=== PATIENT | female | born 1935 | race Caucasian/White ===

== ENCOUNTER → 2016-11-30 | Outpatient (CLI) | payer OTHER ==
[~2016-11-30] MED LIST: ALLO100T PO; ATOR-22 PO; DIGO30TA PO; LISI-786 PO; LORA-741 PO; METO25TA56 PO; OMEP40CA41 PO; ONDA4TAB46 PO; SLWMEC PO; WARF5TAB90 PO; ZNTT/150 PO
[2016-11-30 17:41] LABS: HEMATOCRIT 38.9 % (37-47); MEAN CELL VOLUME 92.4 fL (80-100); MEAN CORPUSCULAR HEMOGLOBIN 31.8 pg (25-34); MEAN CORPUSCULAR HGB CONC 34.4 g/dl (32-36); MEAN PLATELET VOLUME 9.4 fL (7.4-10.4); PLATELET COUNT 237 K/uL (130-400); RED BLOOD COUNT 4.21 M/uL (4.2-5.4); WHITE BLOOD COUNT 8.71 K/uL (4.8-10.8)
[2016-11-30 17:57] LABS: ALT/SGPT 22 U/L (12-78); AST/SGOT 19 U/L (15-37); BLOOD UREA NITROGEN 23 mg/dl (7-18); BUN/CREATININE RATIO 24.9 (10-20); CARBON DIOXIDE 28 mmol/L (21-32); CHLORIDE 103 mmol/L (98-107); CREATININE 0.91 mg/dl (0.60-1.20); GLUCOSE 115 mg/dl (70-99); POTASSIUM 4.4 mmol/L (3.5-5.1); SODIUM 139 mmol/L (136-145); URIC ACID 6.2 mg/dl (2.6-7.2)
[2016-11-30 18:05] LABS: ALKALINE PHOSPHATASE 70 U/L (45-117); CHOLESTEROL 146 mg/dl (0-200); CHOLESTEROL/HDL RATIO 3.2; HDL CHOLESTEROL 46 mg/dl; LDL CHOLESTEROL CALCULATED 38 mg/dl; TRIGLYCERIDES 310 mg/dl (0-150); VERY LOW DENSITY LIPOPROT CALC 62 mg/dl
== END | disposition home or self-care (01) ==
LOC: C.LABBFT 12:10
PROVIDERS: ATTEND Internal Medicine
DX: I10 Essential (primary) hypertension (principal); E78.5 Hyperlipidemia, unspecified; I48.91 Unspecified atrial fibrillation; M10.9 Gout, unspecified

== ENCOUNTER → 2017-06-05 | Outpatient (CLI) | payer OTHER | END | disposition home or self-care (01) | LOC: C.LABBFT 11:52 | PROVIDERS: ATTEND Internal Medicine | DX: R19.7 Diarrhea, unspecified (principal) ==

== ENCOUNTER → 2017-06-07 | Outpatient (CLI) | payer OTHER ==
[2017-06-07 12:25] LABS: BASO % 0.3 %; BASO ABS # 0.02 K/uL (0-0.2); COMPLETE YES; HEMATOCRIT 39.7 % (37-47); IG% 0.4 %; LYMPH % 32.6 %; LYMPH ABS # 2.19 K/uL (1.2-3.4); MEAN CELL VOLUME 91.5 fL (80-100); MEAN CORPUSCULAR HGB CONC 32.7 g/dl (32-36); MEAN PLATELET VOLUME 9.1 fL (7.4-10.4); MONO % 8.5 %; NEUT % 57.2 %; PLATELET COUNT 229 K/uL (130-400); RED BLOOD COUNT 4.34 M/uL (4.2-5.4); WHITE BLOOD COUNT 6.71 K/uL (4.8-10.8)
[2017-06-07 12:36] LABS: ALT/SGPT 22 U/L (12-78); AST/SGOT 18 U/L (15-37); BLOOD UREA NITROGEN 19 mg/dl (7-18); BUN/CREATININE RATIO 22.8 (10-20); CALCIUM 8.8 mg/dl (8.5-10.1); CARBON DIOXIDE 27 mmol/L (21-32); CHLORIDE 108 mmol/L (98-107); CREATININE 0.82 mg/dl (0.60-1.20); GLUCOSE 151 mg/dl (70-99); POTASSIUM 4.1 mmol/L (3.5-5.1); SODIUM 141 mmol/L (136-145); URIC ACID 6.2 mg/dl (2.6-7.2)
[2017-06-07 12:37] LABS: URINE APPEARANCE CLOUDY (CLEAR); URINE BILIRUBIN NEG (NEG); URINE COLOR YELLOW; URINE EPITHELIAL CELL AUTO >30 /lpf (0-5); URINE NITRITE NEG (NEG); URINE SPECIFIC GRAVITY 1.019 (1.000-1.030); UROBILINOGEN NEG (NEG); ZZUR CULT IF INDIC CLEAN CATCH YES
[2017-06-07 12:38] LABS: ESTIMATED AVERAGE GLUCOSE 134 mg/dl; HA1C FLAG Normal (Normal)
[2017-06-07 12:39] LABS: ALKALINE PHOSPHATASE 84 U/L (45-117); CHOLESTEROL 133 mg/dl (0-200); CHOLESTEROL/HDL RATIO 3.1; HDL CHOLESTEROL 43 mg/dl; LDL CHOLESTEROL CALCULATED 36 mg/dl; TRIGLYCERIDES 271 mg/dl (0-150); VERY LOW DENSITY LIPOPROT CALC 54 mg/dl
[2017-06-07 12:51] LABS: MANUAL MICROSCOPIC REQUIRED? NO; REVIEW REQ? NO
== END | disposition home or self-care (01) ==
LOC: C.LABBFT 07:51
PROVIDERS: ATTEND Internal Medicine
DX: I10 Essential (primary) hypertension (principal); M10.9 Gout, unspecified; E78.5 Hyperlipidemia, unspecified; I48.91 Unspecified atrial fibrillation; R73.09 Other abnormal glucose

== ENCOUNTER → 2017-07-19 | Day surgery (SDC) | payer OTHER ==
[2017-07-17 08:13] VITALS: Ht 152.4 cm; Wt 76.4 kg
[~2017-07-19] VITALS: Ht 152.4 cm; Wt 76.4 kg
[~2017-07-19] MED LIST changes: +ATROPINE SULFATE 0.1 MG/ML 5ML SYR IV PRN; +EpHEDrine SULFATE INJ 50 MG/ML AMP IV PRN; +LIDOCAINE HCL 2% 2 ML VIAL (20MG/ML) ONE; +PROPOFOL IV EMULSION 10 MG/ML 20 ML VIAL IV ONE; +SODIUM CHLORIDE 0.9% 500ML 500 ML IV ONE
--- NOTE | 2017-07-19 13:59 | Endo History and Physical ---
History & Physical Date of Service: Jul 19, 2017. Chief Complaint: BRIGHT RED BLOOD PER RECTUM Referring Physician: DR. ENGLISH History of Present Illness 81 yo CF who presents for colonoscopy secondary to rectal bleeding. Past Surgical History Hx Cardiac Surgery: Yes (CARDIOVERSION) Hx Internal Defibrillator: No Hx Pacemaker: No Hx Abdominal Surgery: Yes (MARIA G, CERVICAL CONIZATION) Hx of Implantable Prosthesis: No Hx Post-Op Nausea and Vomiting: No Hx Cancer Surgery: No Hx Thoracic Surgery: No Hx Orthopedic: Yes (LT ANKLE SURGERY WITH HARDWARE --> HARDWARE REMOVAL, LT TKA ) Hx Urinary Tract Surgery: No Family History None Social History Smoking Status: Never Smoker Hx Substance Use: No Hx Alcohol Use: No Allergies Coded Allergies: NO KNOWN DRUG ALLERGIES (Verified Allergy, Unknown, ., 07/19/17) Nickel (Verified Adverse Reaction, Unknown, PAIN WITH HARDWARE IN ANKLE -- > REMOVED, 07/19/17) Current Medications Reported Home Medications Medications Dose Route/Sig Max Daily Dose Days Date Category Dose Instructions Ativan (Lorazepam) 0.5 Mg Tab 0.5 Mg PO BID PRN 07/17/17 Reported Digitek (Digoxin) 0.125 Mg Tab 1 Tab PO QAM 07/17/17 Reported Zofran (Ondansetron HCl) 4 Mg Tab 4 Mg PO DAILY PRN 07/17/17 Reported Slow-Mag Tab (Magnesium Chloride) 64 Mg Tabcr 64 Mg PO TID 07/17/17 Reported Lopressor (Metoprolol Tartrate) 25 Mg Tab 25 Mg PO BID 07/17/17 Reported Zestoretic (Lisinopril & Hydrochlorothiazi) 1 Tab Tab 1 Tab PO QAM 07/17/17 Reported 10MG/12.5MG Coumadin (Warfarin Sodium) 5 Mg Tab 5 Mg PO QAM 07/17/17 Reported ON HOLD FOR PROCEDURE Lipitor (Atorvastatin Calcium) 20 Mg Tab 20 Mg PO QAM 07/17/17 Reported Zyloprim (Allopurinol) 100 Mg Tab 100 Mg PO QAM 07/17/17 Reported Zantac (Ranitidine HCl) 150 Mg Tab 150 Mg PO HS 07/17/17 Reported Prilosec (Omeprazole) 40 Mg Cap 40 Mg PO QAM 07/17/17 Reported Vital Signs Weight (Kilograms): 76.36 Height (Feet): 5 Height (Inches): 0 Date Time Temp Pulse Resp B/P (MAP) Pulse Ox O2 Delivery O2 Flow Rate FiO2 07/19/17 13:43 36.6 70 16 165/89 (114) 97 Room Air Physical Exam General Appearance: WD/WN, no apparent distress Respiratory/Chest: Auscultation: breath sounds normal Cardiovascular: Heart Auscultation: RRR Abdomen: Bowel Sounds: normal Inspection & Palpation: soft, non-distended, no tenderness, guarding & rebound Assessment and Plan Assessment: 81 yo CF who presents for colonoscopy secondary to rectal bleeding. Plan: Proceed with colonoscopy.
--- NOTE | 2017-07-19 14:47 | GI REPORT ---
Procedure Date: 07/19/2017 1:37 PM Procedure: Colonoscopy Indications: Rectal bleeding Medicines: Monitored Anesthesia Care Complications: No immediate complications. Estimated Blood Loss: Estimated blood loss: none. Procedure: Pre-Anesthesia Assessment: - Prior to the procedure, a History and Physical was performed, and patient medications and allergies were reviewed. The patient's tolerance of previous anesthesia was also reviewed. The risks and benefits of the procedure and the sedation options and risks were discussed with the patient. All questions were answered, and informed consent was obtained. Prior Anticoagulants: The patient has taken no previous anticoagulant or antiplatelet agents. ASA Grade Assessment: II - A patient with mild systemic disease. After reviewing the risks and benefits, the patient was deemed in satisfactory condition to undergo the procedure. After I obtained informed consent, the scope was passed under direct vision. Throughout the procedure, the patient's blood pressure, pulse, and oxygen saturations were monitored continuously. The scope was introduced through the anus and advanced to the terminal ileum. The colonoscopy was performed without difficulty. The patient tolerated the procedure well. The quality of the bowel preparation was good. The terminal ileum, ileocecal valve, appendiceal orifice, and rectum were photographed. Findings: Four sessile polyps were found in the rectum, in the ascending colon and in the cecum. The polyps were 3 to 6 mm in size. These polyps were removed with a hot snare. Resection and retrieval were complete. Non-bleeding internal hemorrhoids were found during retroflexion. The hemorrhoids were small. Impression: - Four 3 to 6 mm polyps in the rectum, in the ascending colon and in the cecum, removed with a hot snare. Resected and retrieved. - Non-bleeding internal hemorrhoids. Recommendation: - Resume previous diet. - Continue present medications. - Repeat colonoscopy for surveillance based on pathology results. - Return to primary care physician as previously scheduled. Fab Messina, 07/19/2017 2:46:42 PM This report has been signed electronically. Note Initiated On: 07/19/2017 1:37 PM I attest to the content of the Intraoperative Record and orders documented therein, exceptions below
--- NOTE | 2017-07-19 14:52 | Discharge Instructions ---
Endoscopy Patient Instructions Date / Procedure(s) Performed Jul 19, 2017. Colonoscopy Allergy Information Coded Allergies: NO KNOWN DRUG ALLERGIES (Verified Allergy, Unknown, ., 07/19/17) Nickel (Verified Adverse Reaction, Unknown, PAIN WITH HARDWARE IN ANKLE -- > REMOVED, 07/19/17) Discharge Date / Findings Jul 19, 2017. Colon polyps Rectal polyp Internal hemorrhoids Medication Instructions Stopped Medication(s): COUMADIN 5MG PO 07/15/17 OK to resume all medications today as prescribed Reported Home Medications Medications Dose Route/Sig Max Daily Dose Days Date Category Dose Instructions Ativan (Lorazepam) 0.5 Mg Tab 0.5 Mg PO BID PRN 07/17/17 Reported Digitek (Digoxin) 0.125 Mg Tab 1 Tab PO QAM 07/17/17 Reported Zofran (Ondansetron HCl) 4 Mg Tab 4 Mg PO DAILY PRN 07/17/17 Reported Slow-Mag Tab (Magnesium Chloride) 64 Mg Tabcr 64 Mg PO TID 07/17/17 Reported Lopressor (Metoprolol Tartrate) 25 Mg Tab 25 Mg PO BID 07/17/17 Reported Zestoretic (Lisinopril & Hydrochlorothiazi) 1 Tab Tab 1 Tab PO QAM 07/17/17 Reported 10MG/12.5MG Coumadin (Warfarin Sodium) 5 Mg Tab 5 Mg PO QAM 07/17/17 Reported ON HOLD FOR PROCEDURE Lipitor (Atorvastatin Calcium) 20 Mg Tab 20 Mg PO QAM 07/17/17 Reported Zyloprim (Allopurinol) 100 Mg Tab 100 Mg PO QAM 07/17/17 Reported Zantac (Ranitidine HCl) 150 Mg Tab 150 Mg PO HS 07/17/17 Reported Prilosec (Omeprazole) 40 Mg Cap 40 Mg PO QAM 07/17/17 Reported Provider Instructions Activity Restrictions - No exercising or heavy lifting for 24 hours. - Do not drink alcohol the day of the procedure. - Do not drive a car or operate machinery until the day after the procedure. - Do not make any important decisions or sign important papers in 24 hours after the procedure. Following Day: - Return to full activity which may include returning to work/school. Diet Start your diet with liquids and light foods (jello, soup, juice, toast). Then eat your usual diet if not nauseated. Treatment For Common After Affects For mild abdominal pain, bloating, or excessive gas: - Rest - Eat lightly - Lie on right side Follow-Up Information Follow-up with DR. ENGLISH as scheduled Anesthesia Information What You Should Know You have had a procedure that required some medicine to reduce anxiety and discomfort. This treatment is called moderate sedation. After receiving the treatment, you may be sleepy, but you will be able to breathe on your own. The effects of the treatment may last for several hours. Follow these instructions along with Activity/Diet recommendations noted above: * Do NOT do anything where dizziness or clumsiness would be dangerous. * Rest quietly at home today, then you can be up and about tomorrow. * Have a responsible person stay with you the rest of today. * You may have had an I.V. today. If so, you may take the dressing off later today. Recommendations Call your doctor if: * Trouble breathing * Continuous vomiting for more than 24 hours * Temperature above 101 degrees * Severe abdominal pain or bloating * Pain not relieved by pain medicine ordered * There is increased drainage or redness from any incision * A large amount of rectal bleeding greater than 2-3 tablespoons. (If you had a polyp/s removed or have hemorrhoids, a small amount of blood - from the rectum is to be expected.) * You have any unanswered questions or concerns. IN THE EVENT OF A SERIOUS EMERGENCY, GO TO THE NEAREST EMERGENCY ROOM Your discharge instructions were prepared by provider Fab Messina. Patient Instructions Signature Page Jessie Rothman Patient (or Guardian) Signature/Date: I have read and understand the instructions given to me by my caregivers. Caregiver/RN/Doctor Signature/Date: The above-named patient and/or guardian has received patient instructions on this date. + Original Patient Signature Page (only) stays with chart. Please make copy for patient.
--- NOTE | 2017-07-19 15:04 | Anesthesiology Progress Note ---
Anesthesia Post Op Note Date & Time Jul 19, 2017 at 15:03 Vital Signs Pain Intensity: 0 Vital Signs Past 12 Hours Date Time Temp Pulse Resp B/P (MAP) Pulse Ox O2 Delivery O2 Flow Rate FiO2 07/19/17 14:47 57 16 109/57 (74) 97 Room Air 07/19/17 13:43 36.6 70 16 165/89 (114) 97 Room Air Notes Mental Status: alert / awake / arousable, participated in evaluation Pt Amnestic to Procedure: Yes Nausea / Vomiting: adequately controlled Pain: adequately controlled Airway Patency, RR, SpO2: stable & adequate BP & HR: stable & adequate Hydration State: stable & adequate Anesthetic Complications: no major complications apparent
[2017-07-19 15:18] VITALS: BP 160/88; PULSE 65; O2SAT 95
== END | disposition home or self-care (01) ==
LOC: C.GI 13:20
PROVIDERS: ATTEND Internal Medicine
DX: K62.5 Hemorrhage of anus and rectum (principal); D12.2 Benign neoplasm of ascending colon; D12.0 Benign neoplasm of cecum; D12.8 Benign neoplasm of rectum; K64.8 Other hemorrhoids; Z79.899 Other long term (current) drug therapy; Z79.01 Long term (current) use of anticoagulants

== ENCOUNTER → 2017-12-18 | Outpatient (CLI) | payer OTHER ==
[~2017-12-18] MED LIST changes: -ATROPINE SULFATE 0.1 MG/ML 5ML SYR IV PRN; -EpHEDrine SULFATE INJ 50 MG/ML AMP IV PRN; -LIDOCAINE HCL 2% 2 ML VIAL (20MG/ML) ONE; -PROPOFOL IV EMULSION 10 MG/ML 20 ML VIAL IV ONE; +RANI150T85 PO; -SODIUM CHLORIDE 0.9% 500ML 500 ML IV ONE; -ZNTT/150 PO
[2017-12-18 17:57] LABS: BLOOD UREA NITROGEN 27 mg/dl (7-18); CALCIUM 9.1 mg/dl (8.5-10.1); CARBON DIOXIDE 26 mmol/L (21-32); CREATININE 0.87 mg/dl (0.60-1.20); GLUCOSE 107 mg/dl (70-99); SODIUM 137 mmol/L (136-145)
[2017-12-19 06:26] LABS: HEMOGLOBIN A1C 6.2 % (4.5-5.6)
== END | disposition home or self-care (01) ==
LOC: C.LABBFT 13:52
PROVIDERS: ATTEND Nurse Practitioner
DX: R73.09 Other abnormal glucose (principal)

== ENCOUNTER → 2018-01-08 | Outpatient (CLI) | payer OTHER | END | disposition home or self-care (01) | LOC: C.LABBFT 08:43 | PROVIDERS: ATTEND Nurse Practitioner | DX: R19.5 Other fecal abnormalities (principal); I48.91 Unspecified atrial fibrillation ==

== ENCOUNTER 2022-01-11 16:09 | Inpatient (IN) ==
[2022-01-11] MEDS ORDERED: ONDANSETRON INJ 2 MG/ML 2 ML VIAL IV STA (16:22)
[2022-01-11] MEDS ORDERED: SODIUM CHLORIDE 0.9% 1000ML 1,000 ML IV ONE (16:22)
[2022-01-11] MEDS ORDERED: FAMOTIDINE 20MG IV PUSH 20 MG/5 ML SYR IV STA (16:22)
[2022-01-11] MEDS ORDERED: ACETAMINOPHEN 1,000 MG/100 ML VIAL IV STA (16:23)
[2022-01-11 16:45] LABS: Basophils # (auto) 0.03 K/uL (0-0.2); Basophils % (auto) 0.2 %; Eosinophils # (auto) 0.52 K/uL (0-0.5); Eosinophils % (auto) 3.5 %; Hematocrit (blood only) 34.7 % (37-47); Hemoglobin 11.4 g/dL (12.0-16.0); Immature Granulocytes # (auto) 0.06 K/uL (0.00-0.02); Immature Granulocytes % (auto) 0.4 %; Lymphocytes # (auto) 0.93 K/uL (1.2-3.4); Lymphocytes % (auto) 6.3 %; Mean Corpuscular Hemoglobin 31.1 pg (25-34); Mean Corpuscular Hgb Conc 32.9 g/dL (32-36); Mean Corpuscular Volume 94.6 fL (80-100); Mean Platelet Volume 8.3 fL (7.4-10.4); Monocytes # (auto) 1.41 K/uL (0.11-0.59); Monocytes % (auto) 9.5 %; Neutrophils # (auto) 11.84 K/uL (1.4-6.5); Neutrophils % (auto) 80.1 %; Platelet Count 297 K/uL (130-400); RDW Coefficient of Variation 13.3 % (11.5-14.5); RDW Standard Deviation 46.1 fL (36.4-46.3); Red Blood Count 3.67 M/uL (4.2-5.4); White Blood Count 14.79 K/uL (4.8-10.8)
[2022-01-11 16:55] LABS: Prothrombin Time 20.1 Seconds (9.0-12.0)
--- NOTE | 2022-01-11 16:55 | Emergency Department Note ---
Impression & Plan Hypomagnesemia, Diarrhea, Generalized muscle weakness, Splenic infarct, Hypoxia ED Provider Note NAME: SARA WHITT AGE: 86 SEX: F ARRIVES VIA: Walk-In INFORMANT: Patient ED PROVIDER(S): Marlo Magaña MD CHIEF COMPLAINT: diarrhea, weakness PLAN: Disposition: Admit MEDICAL DECISION MAKING: The patient is a pleasant 86-year-old woman with a past medical history of atrial fibrillation on Coumadin, vertigo who presents to the emergency department accompanied by her daughter from home for evaluation of generalized weakness that has progressively worsened over the past week in the setting of having diarrhea. Of note, the patient was seen the emergency department 2 days ago for vertigo with unremarkable work-up charge after improvement. Should be noted that the patient did not mention her diarrhea at all during this visit. The reason they are coming to the hospital today is because the patient's weakness has become so severe that she is unable to walk. She denies persistence of her vertigo for which she was seen 2 days ago. She denies cough, congestion. She reports some nausea denies vomiting. She reports frequency of stools is dependent on if she tries to eat anything. She denies any recent antibiotics. She reports she has had some mild left-sided abdominal pain that comes and goes. On arrival the patient is fatigued appearing but no distress, afebrile stable vital signs. She appears clinically dry. Her abdomen was benign. She has no focal weakness. Scant rhonchi of right lower lung van, otherwise clear. EKG demonstrates atrial fibrillation without overt acute ischemia. Chest x-ray was interpreted as moderate pulmonary edema however appears asymmetric/more prominent in right lung van. Given the patient's leukocytosis PNA is suspected to be more likely. The patient did have a recent echo which showed normal EF. WBC 14.7K increased from 2 days ago. H/H similar to prior. Platelets within normal limits. Chemistry without metabolic acidosis. Magnesium 1.2 with repletion initiated. LFTs are unremarkable. Lipase is not elevated. Covid-19 RNA, NAAT negative. CT of the abdomen pelvis was performed and shows evidence of splenic infarct which is age-indeterminate but new from May however given the patient's report of left-sided abdominal pain in the setting of being subtherapeutic on her INR 2 days ago may reflect acute finding. Note is made of nonspecific interstitial thickening at the lung bases. Of note, upon ambulation it was noted that the patient did develop shortness of breath and hypoxia to the mid 80s. She was placed on 2 L nasal cannula. Patient's chest x-ray was performed at that time and demonstrated the findings above which in the clinical setting is suspicious for pneumonia. Procalcitonin pending. Given the patient's weakness which is a likely related to the patient's hypomagnesemia with pneumonia vs pulmonary edema, patient and her daughter agree with plan for admission. Further treatment deferred to admitting team. [facility] who will [facility] the patient for admission. Triage Nursing notes reviewed and agree them. Prior medical records reviewed Vital Signs: reviewed and remarkable for hypoxia. Differential diagnosis: Appendicitis, infections, diverticulitis, UTI, obstruction, mesenteric ischemia, aortic pathology, inflammatory bowel disease, renal colic, PUD, pancreatitis, biliary pathology, hernia, volvulus, constipation, as well as other pathologies. ER treatment provided: See below. Diagnostics interpreted by me: ECG: Atrial fibrillation, 75 bpm, no ectopy, no overt ST elevation or depression, QTC 457, QRS 74 Cardiac Monitoring: An order for continuous cardiac monitoring was placed and demonstrated atrial fibrillation, 75 bpm, no ectopy. Laboratory studies: See below Imaging studies: See below Consultation(s): Case [facility] will evaluate the patient for admission. HPI: The patient is a pleasant 86-year-old woman with a past medical history of atrial fibrillation on Coumadin, vertigo who presents to the emergency department accompanied by her daughter from home for evaluation of generalized weakness that has progressively worsened over the past week in the setting of having diarrhea. Of note, the patient was seen the emergency department 2 days ago for vertigo with unremarkable work-up charge after improvement. Should be noted that the patient did not mention her diarrhea at all during this visit. The reason they are coming to the hospital today is because the patient's weakness has become so severe that she is unable to walk. She denies pers istence of her vertigo for which she was seen 2 days ago. She denies cough, congestion. She reports some nausea denies vomiting. She reports frequency of stools is dependent on if she tries to eat anything. She denies any recent antibiotics. She reports she has had some mild left-sided abdominal pain that comes and goes. ROS: See above HPI for pertinent positives & negatives. A total of 10 systems reviewed and were otherwise negative. VITALS:See Below PHYSICAL EXAMINATION: GENERAL: Awake, alert, fatigued-appearing, in no distress HENT: Normocephalic, atraumatic. Oropharynx with dry mucous membranes and other zuniga unremarkable. EYES: Normal conjunctiva. Sclera non-icteric. NECK: Supple. No nuchal rigidity. FROM. No JVD. RESPIRATORY: Scant rhonchi of right lower lung van, otherwise clear. CARDIAC: Regular rate, normal rhythm. Extremities warm and well perfused. Pulses equal. ABDOMEN: Soft, non-distended. No tenderness to palpation. No rebound or guarding. No masses. RECTAL: Deferred. MUSCULOSKELETAL: Chest examination reveals no tenderness. The back is symmetrical on inspection without obvious abnormality. There is no CVA tenderness to palpation. No joint edema. LOWER EXTREMITIES: Calves are equal size bilaterally and non-tender. No edema. No discoloration. NEURO: No sensory or motor deficits noted. Generalized weakness with 4+/5 strength and SILT x 4 extremities. SKIN: No rash or jaundice noted. Marlo Magaña MD Past Med/Surg History Medical History Atrial fibrillation REASON FOR COUMADIN>FOLLOWED BY [facility] GERD (gastroesophageal reflux disease) Hemorrhage following tonsillectomy and adenoidectomy History of anxiety History of cardioversion X 1 "OVER 30 YEARS AGO" History of IBS History of TMJ disorder HTN (hypertension) Hx of gout Hx of migraines Hx of vertigo Hyperlipidemia Osteoarthritis Rheumatoid arthritis Surgical History H/O wisdom tooth extraction History of cardiac cath NO STENTS, REMOTE HX History of cataract surgery RT/LEFT History of cholecystectomy History of colonoscopy History of conization of cervix History of esophagogastroduodenoscopy (EGD) History of open reduction and internal fixation (ORIF) procedure LEFT ANKLE (+HARDWARE REMOVED) History of total knee replacement LEFT Family History Father Family history of diabetes mellitus Mother Family history of diabetes mellitus Sister Family history of diabetes mellitus Other Heart disease No family history of adverse response to anesthesia Social History Smoking Status: Never smoker Second Hand Exposure: No; Hx Alcohol Use: No Hx Substance Use: No Preferred Language: Ukrainian Communication Ability: Effective Communication Ability Comment: hard of hearing [employer]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 Verified 01/11/22 19:50 nickel AdvReac Unknown PAIN WITH Verified 01/11/22 19:50 HARDWARE IN ANKLE --> REMOVED Home Meds Home Medications Medication Instructions Recorded Confirmed allopurinol 100 mg tablet 100 mg PO BID 01/15/19 01/11/22 omeprazole 40 mg capsule,delayed 40 mg PO QAM 01/15/19 01/11/22 release metoprolol tartrate 25 mg tablet 25 mg PO BID tab 06/05/19 01/11/22 cholecalciferol (vitamin D3) 25 25 mcg PO QAM 10/06/21 01/11/22 mcg (1,000 unit) tablet (Vitamin D3) magnesium oxide 400 mg PO BID 10/06/21 01/11/22 prednisone 5 mg tablet 5 mg PO QAM 10/06/21 01/11/22 amoxicillin 500 mg capsule 2,000 mg PO UD PRN 12/13/21 01/11/22 lisinopril 10 mg tablet 10 mg PO QAM 12/13/21 01/11/22 atorvastatin 40 mg tablet 40 mg PO DAILY 01/09/22 01/11/22 colchicine 0.6 mg tablet 0.6 mg PO UD 01/09/22 01/11/22 ondansetron HCl 8 mg tablet 8 mg PO Q8 PRN 01/09/22 01/11/22 sucralfate 1 gram tablet 1 g PO AC 01/09/22 01/11/22 Previous Rx's Medication Instructions Recorded warfarin 2 mg tablet 2 mg PO DAILY #90 tab 04/18/19 acetaminophen 325 mg capsule 650 mg PO Q6H PRN #60 cap 12/16/21 (Tylenol) meclizine 25 mg tablet 25 mg PO TID PRN #14 tab 01/09/22 Results & Data (ED) Vital Signs Vital Signs - 24 hr 01/11/22 16:11 01/11/22 16:42 01/11/22 18:00 Temperature 36.7 C Temperature Source Temporal Artery Scan Pulse Rate 94 H Pulse Rate [Apical] 89 76 Pulse Rhythm Regular Pulse Strength Normal Respiratory Rate 20 20 18 Respiratory Effort / Characteristics Non-Labored Spontaneous Respiratory Depth Normal Respiratory Pattern Regular Blood Pressure 94/55 L Blood Pressure [Left Arm] 131/63 127/59 L Blood Pressure Mean 68 Blood Pressure Mean [Left Arm] 85 81 Blood Pressure Position Sitting Pulse Oximetry 93 91 90 Oxygen Delivery Method Room Air Room Air Room Air Oxygen Flow Rate Sepsis Recent Fever Within 48 Hours No Sepsis New/Unexplained Change in Mental Status N/A Sepsis Action Taken by Nursing No Action Required Oxygen Flow Rate - Titration Pulse Oximetry Post Tiitration 01/11/22 18:44 01/11/22 20:15 01/11/22 22:30 Temperature Temperature Source Pulse Rate Pulse Rate [Apical] 79 97 H Pulse Rhythm Pulse Strength Respiratory Rate 18 16 Respiratory Effort / Characteristics Respiratory Depth Respiratory Pattern Blood Pressure Blood Pressure [Left Arm] 148/88 H 119/72 Blood Pressure Mean Blood Pressure Mean [Left Arm] 108 87 Blood Pressure Position Pulse Oximetry 86 L 97 94 Oxygen Delivery Method Nasal Cannula Nasal Cannula Oxygen Flow Rate 0 2 Sepsis Recent Fever Within 48 Hours Sepsis New/Unexplained Change in Mental Status Sepsis Action Taken by Nursing Oxygen Flow Rate - Titration 2 Pulse Oximetry Post Tiitration 94 Laboratory Data Attestation: I reviewed the patient's lab results. Result diagrams: 01/11/22 16:31 01/11/22 16:31 Lab Results 01/11/22 01/11/22 01/11/22 Range/Units 16:31 16:31 16:31 WBC 14.79 H (4.8-10.8) K/uL RBC 3.67 L (4.2-5.4) M/uL Hgb 11.4 L (12.0-16.0) g/dL Hct 34.7 L (37-47) % MCV 94.6 (80-100) fL MCH 31.1 (25-34) pg MCHC 32.9 (32-36) g/dL RDW Std Deviation 46.1 (36.4-46.3) fL RDW Coeff of Yue 13.3 (11.5-14.5) % Plt Count 297 (130-400) K/uL MPV 8.3 (7.4-10.4) fL Immature Gran % (Auto) 0.4 % Neut % (Auto) 80.1 % Lymph % (Auto) 6.3 % [place] % (Auto) 9.5 % Eos % (Auto) 3.5 % Baso % (Auto) 0.2 % Neut # (Auto) 11.84 H (1.4-6.5) K/uL Lymph # (Auto) 0.93 L (1.2-3.4) K/uL [place] # (Auto) 1.41 H (0.11-0.59) K/uL Eos # (Auto) 0.52 H (0-0.5) K/uL Baso # (Auto) 0.03 (0-0.2) K/uL Immature Gran # (Auto) 0.06 H (0.00-0.02) K/uL PT 20.1 H (9.0-12.0) Seconds INR 2.0 H (0.9-1.1) Sodium 134 L (136-145) mmol/L Potassium 4.4 (3.5-5.1) mmol/L Chloride 98 (98-107) mmol/L Carbon Dioxide 30 (21-32) mmol/L Anion Gap 6 (3-11) BUN 24 H (6-23) mg/dl Creatinine 1.05 (0.6-1.2) mg/dl Est Cr Clr Drug Dosing 52.3 ml/min Est GFR ( Amer) 54.9 ml/min Est GFR (Non-Af Amer) 47.4 ml/min BUN/Creatinine Ratio 22.9 H (10-20) Glucose 234 H (70-99(Fasting)) mg/dl Lactate (0.4-2.0) mmol/L Calcium 9.2 (8.5-10.1) mg/dl Phosphorus 2.8 (2.5-4.9) mg/dl Magnesium 1.2 L (1.7-2.4) mg/dl Total Bilirubin 0.8 (0.2-1.0) mg/dl AST 9 L (13-39) U/L ALT 6 L (7-52) U/L Alkaline Phosphatase 57 (34-104) U/L Troponin I (0-0.04) ng/ml B-Natriuretic Peptide (0-100) pg/ml Total Protein 6.8 (6.0-8.3) gm/dl Albumin 3.2 L (3.4-5.0) gm/dl Globulin 3.6 (2.5-4.0) gm/dl Albumin/Globulin Ratio 0.9 (0.9-2) Lipase 14 (11-82) U/L Procalcitonin (0-0.5) ng/ml Urine Color Urine Appearance (Clear) Urine pH (4.5-7.5) Ur Specific [place] (1.000-1.030) Urine Protein (Negative) Urine Glucose (UA) (Negative) Urine Ketones (Negative) Urine Blood (Negative) Urine Nitrite (Negative) Urine Bilirubin (Negative) Urine Urobilinogen (Negative) Ur Leukocyte Esterase (Negative) Urine WBC (Auto) (0-5) /hpf Urine RBC (Auto) (0-4) /hpf U Hyaline Cast (Auto) (0-5) /lpf U Epithel Cells (Auto) (0-5) /lpf Urine Bacteria (Auto) (Negative) SARS-CoV-2, RNA, NAAT (NEGATIVE) 01/11/22 01/11/22 01/11/22 Range/Units 16:31 16:50 19:30 WBC (4.8-10.8) K/uL RBC (4.2-5.4) M/uL Hgb (12.0-16.0) g/dL Hct (37-47) % MCV (80-100) fL MCH (25-34) pg MCHC (32-36) g/dL RDW Std Deviation (36.4-46.3) fL RDW Coeff of Yue (11.5-14.5) % Plt Count (130-400) K/uL MPV (7.4-10.4) fL Immature Gran % (Auto) % Neut % (Auto) % Lymph % (Auto) % [place] % (Auto) % Eos % (Auto) % Baso % (Auto) % Neut # (Auto) (1.4-6.5) K/uL Lymph # (Auto) (1.2-3.4) K/uL [place] # (Auto) (0.11-0.59) K/uL Eos # (Auto) (0-0.5) K/uL Baso # (Auto) (0-0.2) K/uL Immature Gran # (Auto) (0.00-0.02) K/uL PT (9.0-12.0) Seconds INR (0.9-1.1) Sodium (136-145) mmol/L Potassium (3.5-5.1) mmol/L Chloride (98-107) mmol/L Carbon Dioxide (21-32) mmol/L Anion Gap (3-11) BUN (6-23) mg/dl Creatinine (0.6-1.2) mg/dl Est Cr Clr Drug Dosing ml/min Est GFR ( Amer) ml/min Est GFR (Non-Af Amer) ml/min BUN/Creatinine Ratio (10-20) Glucose (70-99(Fasting)) mg/dl Lactate (0.4-2.0) mmol/L Calcium (8.5-10.1) mg/dl Phosphorus (2.5-4.9) mg/dl Magnesium (1.7-2.4) mg/dl Total Bilirubin (0.2-1.0) mg/dl AST (13-39) U/L ALT (7-52) U/L Alkaline Phosphatase (34-104) U/L Troponin I < 0.03 (0-0.04) ng/ml B-Natriuretic Peptide 169 H (0-100) pg/ml Total Protein (6.0-8.3) gm/dl Albumin (3.4-5.0) gm/dl Globulin (2.5-4.0) gm/dl Albumin/Globulin Ratio (0.9-2) Lipase (11-82) U/L Procalcitonin (0-0.5) ng/ml Urine Color Urine Appearance (Clear) Urine pH (4.5-7.5) Ur Specific [place] (1.000-1.030) Urine Protein (Negative) Urine Glucose (UA) (Negative) Urine Ketones (Negative) Urine Blood (Negative) Urine Nitrite (Negative) Urine Bilirubin (Negative) Urine Urobilinogen (Negative) Ur Leukocyte Esterase (Negative) Urine WBC (Auto) (0-5) /hpf Urine RBC (Auto) (0-4) /hpf U Hyaline Cast (Auto) (0-5) /lpf U Epithel Cells (Auto) (0-5) /lpf Urine Bacteria (Auto) (Negative) SARS-CoV-2, RNA, NAAT NEGATIVE (NEGATIVE) 01/11/22 01/11/22 01/11/22 Range/Units 19:30 20:13 20:26 WBC (4.8-10.8) K/uL RBC (4.2-5.4) M/uL Hgb (12.0-16.0) g/dL Hct (37-47) % MCV (80-100) fL MCH (25-34) pg MCHC (32-36) g/dL RDW Std Deviation (36.4-46.3) fL RDW Coeff of Yue (11.5-14.5) % Plt Count (130-400) K/uL MPV (7.4-10.4) fL Immature Gran % (Auto) % Neut % (Auto) % Lymph % (Auto) % [place] % (Auto) % Eos % (Auto) % Baso % (Auto) % Neut # (Auto) (1.4-6.5) K/uL Lymph # (Auto) (1.2-3.4) K/uL [place] # (Auto) (0.11-0.59) K/uL Eos # (Auto) (0-0.5) K/uL Baso # (Auto) (0-0.2) K/uL Immature Gran # (Auto) (0.00-0.02) K/uL PT (9.0-12.0) Seconds INR (0.9-1.1) Sodium (136-145) mmol/L Potassium (3.5-5.1) mmol/L Chloride (98-107) mmol/L Carbon Dioxide (21-32) mmol/L Anion Gap (3-11) BUN (6-23) mg/dl Creatinine (0.6-1.2) mg/dl Est Cr Clr Drug Dosing ml/min Est GFR ( Amer) ml/min Est GFR (Non-Af Amer) ml/min BUN/Creatinine Ratio (10-20) Glucose (70-99(Fasting)) mg/dl Lactate 1.2 (0.4-2.0) mmol/L Calcium (8.5-10.1) mg/dl Phosphorus (2.5-4.9) mg/dl Magnesium (1.7-2.4) mg/dl Total Bilirubin (0.2-1.0) mg/dl AST (13-39) U/L ALT (7-52) U/L Alkaline Phosphatase (34-104) U/L Troponin I (0-0.04) ng/ml B-Natriuretic Peptide (0-100) pg/ml Total Protein (6.0-8.3) gm/dl Albumin (3.4-5.0) gm/dl Globulin (2.5-4.0) gm/dl Albumin/Globulin Ratio (0.9-2) Lipase (11-82) U/L Procalcitonin < 0.05 (0-0.5) ng/ml Urine Color Yellow Urine Appearance Clear (Clear) Urine pH 5.5 (4.5-7.5) Ur Specific [place] 1.034 H (1.000-1.030) Urine Protein Negative (Negative) Urine Glucose (UA) Negative (Negative) Urine Ketones Negative (Negative) Urine Blood Negative (Negative) Urine Nitrite Negative (Negative) Urine Bilirubin Negative (Negative) Urine Urobilinogen Negative (Negative) Ur Leukocyte Esterase 2+ H (Negative) Urine WBC (Auto) >30 H (0-5) /hpf Urine RBC (Auto) 0-4 (0-4) /hpf U Hyaline Cast (Auto) 1-5 (0-5) /lpf U Epithel Cells (Auto) >30 H (0-5) /lpf Urine Bacteria (Auto) Negative (Negative) SARS-CoV-2, RNA, NAAT (NEGATIVE) Administered Medications Allopurinol (Allopurinol 100 Mg Tab) 100 mg PO BID EVIE Stop: 02/10/22 22:59 Last Admin: 01/12/22 01:05 Dose: 100 mg Documented by: [id number] Insulin Aspart (Insulin Aspart Per Unit) 0 units SC ACHS EVIE Stop: 02/11/22 00:16 Last Admin: 01/12/22 03:30 Dose: 3 units Documented by: [id number] Cosigned by: [id number] Discontinued Medications Furosemide (Furosemide Inj 20 Mg/2 Ml Vial) 20 mg IV ONE ONE Stop: 01/11/22 21:41 Last Admin: 01/11/22 22:41 Dose: 20 mg Documented by: [id number] Sodium Chloride (Nss 1000ml) 1,000 mls @ 999 mls/hr IV .Q1H1M ONE Stop: 01/11/22 17:22 Last Infusion: 01/11/22 17:51 Dose: 0 mls/hr Documented by: [id number] Admin: 01/11/22 16:36 Dose: 999 mls/hr Documented by: [id number] Famotidine (Pepcid 20mg Iv Push) 20 mg in 5 mls @ 2.5 mls/min IV NOW STA Stop: 01/11/22 16:23 Last Admin: 01/11/22 16:36 Dose: 2.5 mls/min Documented by: [id number] Acetaminophen (Ofirmev) 1,000 mg in 100 mls @ 400 mls/hr IV NOW STA Stop: 01/11/22 16:37 Last Infusion: 01/11/22 17:51 Dose: 0 mls/hr Documented by: [id number] Admin: 01/11/22 16:41 Dose: 400 mls/hr Documented by: [id number] Magnesium Sulfate/Dextrose (Magnesium Sulfate / D5w) 1 gm in 100 mls @ 100 mls/hr IV NOW STA Stop: 01/11/22 20:13 Last Infusion: 01/11/22 21:04 Dose: 0 mls/hr Documented by: [id number] Admin: 01/11/22 19:32 Dose: 100 mls/hr Documented by: [id number] Magnesium Sulfate/Dextrose (Magnesium Sulfate / D5w) 1 gm in 100 mls @ 50 mls/hr IV Q2H EVIE Stop: 01/12/22 00:59 Last Infusion: 01/12/22 03:22 Dose: 0 mls/hr Documented by: [id number] Admin: 01/11/22 23:12 Dose: 50 mls/hr Documented by: [id number] Infusion: 01/11/22 23:04 Dose: 50 mls/hr Documented by: [id number] Admin: 01/11/22 21:04 Dose: 50 mls/hr Documented by: [id number] Ceftriaxone Sodium (Rocephin) 2,000 mg in 70 mls @ 100 mls/hr IV NOW STA Stop: 01/11/22 22:26 Last Infusion: 01/11/22 23:15 Dose: 0 mls/hr Documented by: [id number] Admin: 01/11/22 22:41 Dose: 100 mls/hr Documented by: [id number] Insulin Glargine (Insulin Glargine Solostar 100 Units/Ml 3 Ml Pen) 5 units SC NOW STA Stop: 01/11/22 22:56 Last Admin: 01/12/22 01:06 Dose: 5 units Documented by: [id number] Cosigned by: [id number] Ioversol (Optiray 320 100ml) 94 ml IV ONCE ONE Stop: 01/11/22 17:42 Last Admin: 01/11/22 17:41 Dose: 94 ml Documented by: [id number] Ondansetron HCl (Ondansetron Inj 2 Mg/Ml 2 Ml Vial) 4 mg IV NOW STA Stop: 01/11/22 16:23 Last Admin: 01/11/22 16:37 Dose: 4 mg Documented by: [id number] Warfarin Sodium (Warfarin Sod 2 Mg Tab) 2 mg PO ONE STA Stop: 01/11/22 23:14 Last Admin: 01/12/22 01:05 Dose: 2 mg Documented by: [id number] Imaging Data Radiologist's Impression: Abdomen/Pelvis CT 01/11/22 16:24 CT abd pelvis IV con only CLINICAL HISTORY: diarrhea TECHNIQUE: Helical axial images of the abdomen and pelvis were obtained and displayed. Automated dose lowering techniques and/or adjustment according to patient size were utilized for this exam. This exam was performed with intravenous contrast. COMPARISON: Comparison is made to CT abdomen pelvis 05/05/2021 FINDINGS: Lower chest: Cardiomegaly is seen. Interstitial thickening is partially seen, Limited evaluation due to patient motion. Liver: Unremarkable. No focal lesions are seen. Gallbladder and biliary tree: Patient is status post cholecystectomy. Physiologic prominence of the biliary ducts is noted. Pancreas: Unremarkable, no focal lesions. Spleen: A hypodensity or hypoenhancing lesion is seen in the inferior pole of the spleen. Adrenals: Unremarkable. Kidneys and ureters: Unremarkable. Bladder: Unremarkable. Reproductive organs: Unremarkable. Bowel: Unremarkable appearance of the bowel. The appendix is normal. Lymph nodes Retroperitoneal: Unremarkable. Mesenteric: Unremarkable. Pelvic: Unremarkable. Peritoneum: Normal. Vessels: Atherosclerotic calcifications are seen. Abdominal wall: Unremarkable. Bones: Degenerative changes in the visualized spine. IMPRESSION: 1. No intestinal abnormality is seen in this patient with diarrhea. 2. Wedge shaped hypodensity in the inferior pole of the spleen, new from prior exam, may represent splenic infarct. Clinical correlation is recommended. ACT 112: Negative or not required by law. Electronically signed by: Nicko Radford M.D. 01/11/2022 5:56 PM Chest X-Ray 01/11/22 18:43 XR chest 1V portable CLINICAL HISTORY: hypoxia TECHNIQUE: Single frontal radiograph of the chest was obtained. Comparison: Comparison is made to chest one view 01/15/2019 FINDINGS: No lines and tubes are seen. Cardiomegaly is noted. There is prominence and cephalization of the vasculature with Luca B lines seen. Density in the right lung base is favored to represent epicardial fat, an underlying effusion cannot be excluded. IMPRESSION: Moderate pulmonary edema. ACT 112: Negative or not required by law. Electronically signed by: Nicko Radford M.D. 01/11/2022 7:09 PM Discharge Plan Visit Data Chief Complaint: Illness Stated Complaint: DIARHEA, SICK IN STOMACH, NOT ABLE TO WALK ED Provider: Marlo Magaña Discharge Problem: Hypomagnesemia, Diarrhea, Generalized muscle weakness, Splenic infarct, Hypoxia Patient Disposition: Admitted As Inpatient Discharge Instructions Interventions: ED Discharge Assessment Last Done: 01/11/22 23:44 Discharge Problem: Diarrhea Qualifiers: Diarrhea type: unspecified type Qualified Code(s): R19.7 - Diarrhea, unspecified
[2022-01-11 17:06] LABS: Albumin Globulin Ratio 0.9 (0.9-2); Albumin Level 3.2 gm/dl (3.4-5.0); BUN Creatinine Ratio 22.9 (10-20); Bilirubin,Total 0.8 mg/dl (0.2-1.0); Calcium 9.2 mg/dl (8.5-10.1); Creatinine Clr Calc Pharmacy 52.3 ml/min; Est GFR (African American) 54.9 ml/min; Est GFR (Non-African American) 47.4 ml/min; Globulin 3.6 gm/dl (2.5-4.0); Magnesium 1.2 mg/dl (1.7-2.4); Phosphorus 2.8 mg/dl (2.5-4.9); Potassium 4.4 mmol/L (3.5-5.1); Total Protein 6.8 gm/dl (6.0-8.3)
[2022-01-11] MEDS ORDERED: OPTIRAY 320 100ml IV ONE (17:41)
--- NOTE | 2022-01-11 17:57 | CT Scan Report ---
CT abd pelvis IV con only CLINICAL HISTORY: diarrhea TECHNIQUE: Helical axial images of the abdomen and pelvis were obtained and displayed. Automated dose lowering techniques and/or adjustment according to patient size were utilized for this exam. This e xam was performed with intravenous contrast. COMPARISON: Comparison is made to CT abdomen pelvis 05/05/2021 FINDINGS: Lower chest: Cardiomegaly is seen. Interstitial thickening is partially seen, Limited evaluation due to patient motion. Liver: Unremarkable. No focal lesions are seen. Gallbladder and biliary tree: Patient is status post cholecystectomy. Physiologic prominence of the b iliary ducts is noted. Pancreas: Unremarkable, no focal lesions. Spleen: A hypodensity or hypoenhancing lesion is seen in the inferior pole of the spleen. Adrenals: Unremarkable. Kidneys and ureters: Unremarkable. Bladder: Unremarkable. Reproductive organs: Unremarkable. Bowel: Unremarkable appearance of the bowel. The appendix is normal. Lymph nodes Retroperitoneal: Unremarkable. Mesenteric: Unremarkable. Pelvic: Unremarkable. Peritoneum: Normal. Vessels: Atherosclerotic calcifications are seen. Abdominal wall: Unremarkable. Bones: Degenerative changes in the visualized spine. IMPRESSION: 1. No intestinal abnormality is seen in this patient with diarrhea. 2. Wedge shaped hypodensity in the inferior pole of the spleen, new from prior exam, may represent s plenic infarct. Clinical correlation is recommended. ACT 112: Negative or not required by law. Electronically signed by: Nicko Radford M.D. 01/11/2022 5:56 PM
--- NOTE | 2022-01-11 19:10 | XRay Report ---
XR chest 1V portable CLINICAL HISTORY: hypoxia TECHNIQUE: Single frontal radiograph of the chest was obtained. Comparison: Comparison is made to chest one view 01/15/2019 FINDINGS: No lines and tubes are seen. Cardiomegaly is noted. There is prominence and cephalization of the vasc ulature with Luca B lines seen. Density in the right lung base is favored to represent epicardial f at, an underlying effusion cannot be excluded. IMPRESSION: Moderate pulmonary edema. ACT 112: Negative or not required by law. Electronically signed by: Nicko Radford M.D. 01/11/2022 7:09 PM
[2022-01-11] MEDS ORDERED: MAGNESIUM SULFATE / D5W 1 GM/100 ML BAG IV STA (19:14)
[2022-01-11 20:28] LABS: Appearance Urine Clear (Clear); Bacteria Urine Automated Negative (Negative); Bilirubin Urine Negative (Negative); Blood Urine Negative (Negative); Color Urine Yellow; Epithelial Cell Urine Auto >30 /lpf (0-5); Glucose Urine UA Negative (Negative); Ketones Urine Negative (Negative); Leukocyte Esterase Urine 2+ (Negative); Nitrite Urine Negative (Negative); Protein Urine Negative (Negative); RBC Urine Automated 0-4 /hpf (0-4); Specific Gravity Urine 1.034 (1.000-1.030); Urobilinogen Urine Negative (Negative); WBC Urine Automated >30 /hpf (0-5); pH Urine 5.5 (4.5-7.5)
[2022-01-11] MEDS: MAGNESIUM SULFATE / D5W 1 GM/100 ML BAG IV SCH ×2 (21:04→23:12)
--- NOTE | 2022-01-11 21:21 | History & Physical Report ---
Date of Service January 11, 2022 Assessment & Plan (1) Weakness: (2) Nausea: (3) Diarrhea: (4) Abdominal pain: (5) Chronic atrial fibrillation: (6) HTN (hypertension): (7) Rheumatoid arthritis: (8) Chronic vertigo: Plan: HPI, PMH, Social history, PE completed by Jessica Lopez PA-C. Assessment and plan per Dr Barragan. See addendum Plan: IM ATTENDING : Patient seen and examined. History obtained from patient, family, and records. Preceding documentation by Ms. Jessica Lopez PA-C reviewed. FINAL ASSESSMENT AND PLAN as follows : Complicated UTI, no overt sepsis for now Chronic shortness of breath secondary to pulmonary HTN, pulmonary congestion on CXR, history diastolic dysfunction, EF 65 to 69%, TTE 2021 Hypertension, stable A. fib, rate controlled, INR therapeutic Valvular heart disease (mild AR, moderate MR) Chronic anemia, hemoglobin at baseline Rheumatoid arthritis on chronic steroid Rx New onset DM, hemoglobin A1c of 6.7, January 2022 Acute on chronic diarrhea rule out C. difficile Hypomagnesemia secondary to diarrhea Chronic vertigo Possible functional disability, patient daughter worried about patient ability to independently care for self with current living situation Medical telemetry Urine CS, Ceftriaxone Lasix 1 dose Basal insulin, ISS BG goal 1 10-1 40, carb count coverage, DM education PT OT eval DVT prophylaxis. Coumadin INR goal between 2 and 3 Full code Patient daughter requesting updates from providers. Bonita Rojo, contact #[phone]. Text document was generated using [employer] voice recognition software. It may contain grammatical or spelling errors. Kindly contact undersigned for clarification of any documentation item in question. History of Present Illness Chief Complaint: weakness Primary Care Provider: Chilo Lopez Estuardo Patient is 86-year-old female with PMH chronic atrial fibrillation on Coumadin, moderate mitral regurgitation, mild aortic insufficiency, HTN, HLD, RA on chronic prednisone, gout, chronic vertigo, GERD presented to ER with complaint of weakness. History obtained from patient and patient's daughter, and outpatient review. Reports patient with chronic dizziness. She reports follows with audiology and ENT in past. She doesn't feel her dizziness is worse than normal. Patient also reports of chronic nausea and chronic diarrhea. She reports often times if she eats she will have episodes of diarrhea. Worse with eating out. Patient reports that she did not have episode of diarrhea today however patient's daughter states that patient had 2 episodes of fecal incontinence today requiring change of clothes. Patient reports past week her stool has been yellow in color previously brown color stool. Denies any melena or hematochezia. Patient reports that PCP started her on Zofran and Carafate last week for her nausea. Patient does not believe that she had any history of endoscopy or followed with any GI providers in the past. Denies vomiting. She reports past week has had intermittent pain to left upper quadrant that occurs when she is sitting. Patient reports pain comes and goes away quickly, is nonradiating. Patient reports a couple of nights ago woke up to her wetting the bed. Denies dysuria, hematuria, known fever, chills. Denies recent fall, syncope, palpitations. Daughter reports that she brought patient to ER today because patient has been having difficulty ambulating and today was unable to ambulate with her walker secondary to weakness. Patient's daughter also reports the past week she has noted patient to be, more forgetful. She reports yesterday she turned on water and bathtub and forgot and flooded the bathroom. She states this is very atypical for patient. Denies SHAIKH, vision changes, neck pain, CP, SOB, orthopnea, palpitations, cough, sore throat, choking, otalgia, rhinorrhea, paresthesias, extremity edema, rashes. Allergies Allergy/AdvReac Type Severity Reaction Status Date / Time No Known Drug Allergies Allergy Unknown . Verified 01/11/22 19:50 nickel AdvReac Unknown PAIN WITH Verified 01/11/22 19:50 HARDWARE IN ANKLE --> REMOVED Home Medications Medication Instructions Recorded Confirmed Type allopurinol 100 mg tablet 100 mg PO BID 01/15/19 01/11/22 History omeprazole 40 mg capsule,delayed 40 mg PO QAM 01/15/19 01/11/22 History release warfarin 2 mg tablet 2 mg PO DAILY #90 tab 04/18/19 01/11/22 Rx metoprolol tartrate 25 mg tablet 25 mg PO BID tab 06/05/19 01/11/22 History cholecalciferol (vitamin D3) 25 25 mcg PO QAM 10/06/21 01/11/22 History mcg (1,000 unit) tablet (Vitamin D3) magnesium oxide 400 mg PO BID 10/06/21 01/11/22 History prednisone 5 mg tablet 5 mg PO QAM 10/06/21 01/11/22 History amoxicillin 500 mg capsule 2,000 mg PO UD PRN 12/13/21 01/11/22 History lisinopril 10 mg tablet 10 mg PO QAM 12/13/21 01/11/22 History acetaminophen 325 mg capsule 650 mg PO Q6H PRN #60 cap 12/16/21 01/11/22 Rx (Tylenol) atorvastatin 40 mg tablet 40 mg PO DAILY 01/09/22 01/11/22 History colchicine 0.6 mg tablet 0.6 mg PO UD 01/09/22 01/11/22 History meclizine 25 mg tablet 25 mg PO TID PRN #14 tab 01/09/22 01/11/22 Rx ondansetron HCl 8 mg tablet 8 mg PO Q8 PRN 01/09/22 01/11/22 History sucralfate 1 gram tablet 1 g PO AC 01/09/22 01/11/22 History Past Med/Surg History Medical History (Updated 01/11/22 @ 22:01 by Jessica Lopez PA-C) Atrial fibrillation REASON FOR COUMADIN>FOLLOWED BY [facility] GERD (gastroesophageal reflux disease) Hemorrhage following tonsillectomy and adenoidectomy History of anxiety History of cardioversion X 1 "OVER 30 YEARS AGO" History of IBS History of TMJ disorder HTN (hypertension) Hx of gout Hx of migraines Hx of vertigo Hyperlipidemia Osteoarthritis Rheumatoid arthritis Surgical History H/O wisdom tooth extraction History of cardiac cath NO STENTS, REMOTE HX History of cataract surgery RT/LEFT History of cholecystectomy History of colonoscopy History of conization of cervix History of esophagogastroduodenoscopy (EGD) History of open reduction and internal fixation (ORIF) procedure LEFT ANKLE (+HARDWARE REMOVED) History of total knee replacement LEFT Family History (Updated 01/11/22 @ 22:02 by Jessica Lopez PA-C) Father Family history of diabetes mellitus Mother Family history of diabetes mellitus Sister Family history of diabetes mellitus Other Heart disease No family history of adverse response to anesthesia Social History Smoking Status: Never smoker Second Hand Exposure: No; Hx Alcohol Use: No Hx Substance Use: No Preferred Language: Slovak Communication Ability: Effective Communication Ability Comment: hard of hearing Cadd Manager Required: No Beliefs That Will Affect Care: None marital status: / Current Living Situation: Alone Current Living Situation Comment: [employer] current occupational status: retired Other Information That Helps Us Care for You: No Feels Safe at Home: Yes Safety Concerns: Feels Safe At This Time Assistive Devices: Hearing Aid - Bilateral and Walker Review of Systems Review of Systems: All systems reviewed & are unremarkable except as noted in HPI & below Physical Exam Physical Exam: General: no distress, obese Head: normocephalic, atraumatic Eyes: PERRL, EOM's intact, conjunctiva non-injected, anicteric ENT: hard of hearing, normal inspection external ears, nose, mucous membranes mildly dry Neck: supple, trachea midline,r Lungs: clear, no respiratory distress, no wheezing/rhonchi/rales CV: irregularly irregular, no murmur, no pretibial edema Abd: normal BS, soft, non-tender to palpation Ext: no cyanosis, no calf tenderness Neuro: Alert, oriented to person, place, month, no focal deficits noted, normal affect Skin: warm, dry Results & Data Results & Data ([facility]) Vital Signs (Past 12 Hours) Vital Signs Temp Pulse Pulse Resp BP BP Pulse Ox 01/11/22 20:15 79 18 148/88 H 97 01/11/22 18:44 86 L 01/11/22 18:00 76 18 127/59 L 90 01/11/22 16:42 89 20 131/63 91 01/11/22 16:11 36.7 C 94 H 20 94/55 L 93 Laboratory Results Short CBC 01/11/22 Range/Units 16:31 WBC 14.79 H (4.8-10.8) K/uL Hgb 11.4 L (12.0-16.0) g/dL Hct 34.7 L (37-47) % Plt Count 297 (130-400) K/uL BMP 01/11/22 16:31 Sodium 134 L Potassium 4.4 Chloride 98 Carbon Dioxide 30 BUN 24 H Creatinine 1.05 Glucose 234 H Calcium 9.2 Cardiac Enzymes 01/11/22 Range/Units 16:31 Troponin I < 0.03 (0-0.04) ng/ml Liver Function 01/11/22 Range/Units 16:31 Total Bilirubin 0.8 (0.2-1.0) mg/dl AST 9 L (13-39) U/L ALT 6 L (7-52) U/L Alkaline Phosphatase 57 (34-104) U/L Albumin 3.2 L (3.4-5.0) gm/dl Urine 01/11/22 Range/Units 20:13 Urine Color Yellow Urine Appearance Clear (Clear) Urine pH 5.5 (4.5-7.5) Ur Specific [place] 1.034 H (1.000-1.030) Urine Protein Negative (Negative) Urine Glucose (UA) Negative (Negative) Diagnostic Findings Abdomen/Pelvis CT 01/11/22 16:24 CT abd pelvis IV con only CLINICAL HISTORY: diarrhea TECHNIQUE: Helical axial images of the abdomen and pelvis were obtained and d isplayed. Automated dose lowering techniques and/or adjustment according to patient size were utilized for this exam. This exam was performed with intravenous contrast. COMPARISON: Comparison is made to CT abdomen pelvis 05/05/2021 FINDINGS: Lower chest: Cardiomegaly is seen. Interstitial thickening is partially seen, Limited evaluation due to patient motion. Liver: Unremarkable. No focal lesions are seen. Gallbladder and biliary tree: Patient is status post cholecystectomy. Physiologic prominence of the biliary ducts is noted. Pancreas: Unremarkable, no focal lesions. Spleen: A hypodensity or hypoenhancing lesion is seen in the inferior pole of the spleen. Adrenals: Unremarkable. Kidneys and ureters: Unremarkable. Bladder: Unremarkable. Reproductive organs: Unremarkable. Bowel: Unremarkable appearance of the bowel. The appendix is normal. Lymph nodes Retroperitoneal: Unremarkable. Mesenteric: Unremarkable. Pelvic: Unremarkable. Peritoneum: Normal. Vessels: Atherosclerotic calcifications are seen. Abdominal wall: Unremarkable. Bones: Degenerative changes in the visualized spine. IMPRESSION: 1. No intestinal abnormality is seen in this patient with diarrhea. 2. Wedge shaped hypodensity in the inferior pole of the spleen, new from prior exam, may represent splenic infarct. Clinical correlation is recommended. ACT 112: Negative or not required by law. Electronically signed by: Nicko Radford M.D. 01/11/2022 5:56 PM Chest X-Ray 01/11/22 18:43 XR chest 1V portable CLINICAL HISTORY: hypoxia TECHNIQUE: Single frontal radiograph of the chest was obtained. Comparison: Comparison is made to chest one view 01/15/2019 FINDINGS: No lines and tubes are seen. Cardiomegaly is noted. There is prominence and cephalization of the vasculature with Luca B lines seen. Density in the right lung base is favored to represent epicardial fat, an underlying effusion cannot be excluded. IMPRESSION: Moderate pulmonary edema. ACT 112: Negative or not required by law. Electronically signed by: Nicko Radford M.D. 01/11/2022 7:09 PM
[2022-01-11] MEDS ORDERED: FUROSEMIDE INJ 20 MG/2 ML VIAL IV ONE (21:40)
[2022-01-11] MEDS ORDERED: cefTRIAXone SODIUM 2,000 MG/70 ML BAG IV STA (21:45)
[2022-01-11] MEDS ORDERED: WARFARIN SOD 5 MG TAB PO ONE (22:51)
[2022-01-11] MEDS ORDERED: INSULIN GLARGINE SOLOSTAR 100 UNITS/ML 3 ML PEN SC STA (22:55)
[2022-01-11] MEDS ORDERED: WARFARIN SOD 2 MG TAB PO STA (23:13)
[2022-01-12] MEDS ORDERED: CARBOHYDRATES FOR HYPOGLYCEMIA PO PRN (00:17)
[2022-01-12] MEDS ORDERED: GLUCAGON FOR INJ 1 MG VIAL SQ PRN (00:17)
[2022-01-12] MEDS ORDERED: DEXTROSE 50% 50 ML SYRINGE IV PRN (00:17)
[2022-01-12] MEDS ORDERED: ACETAMINOPHEN 325 MG TAB PO PRN (00:17)
[2022-01-12] MEDS ORDERED: GLUCOSE 40% GEL 15 GM TUBE PO PRN (00:17)
[2022-01-12] MEDS ORDERED: GLUCOSE 10 TABS/TUBE PO PRN (00:17)
[2022-01-12] MEDS ORDERED: PROMETHAZINE HCL 12.5 MG in SODIUM CHLORIDE 0.9% 50 ML IV PRN (00:17)
[2022-01-12] MEDS: allopurinoL 100 MG TAB PO SCH ×3 (01:05→20:28)
[2022-01-12] MEDS: INSULIN ASPART PER UNIT SC SCH ×5 (03:30→20:29)
[2022-01-12 08:10] LABS: Basophils # (auto) 0.02 K/uL (0-0.2); Basophils % (auto) 0.1 %; Eosinophils # (auto) 0.88 K/uL (0-0.5); Eosinophils % (auto) 6.2 %; Hematocrit (blood only) 35.7 % (37-47); Hemoglobin 11.7 g/dL (12.0-16.0); Immature Granulocytes # (auto) 0.02 K/uL (0.00-0.02); Immature Granulocytes % (auto) 0.1 %; Lymphocytes # (auto) 2.71 K/uL (1.2-3.4); Lymphocytes % (auto) 19.2 %; Mean Corpuscular Hemoglobin 31.2 pg (25-34); Mean Corpuscular Hgb Conc 32.8 g/dL (32-36); Mean Corpuscular Volume 95.2 fL (80-100); Mean Platelet Volume 8.7 fL (7.4-10.4); Monocytes # (auto) 1.03 K/uL (0.11-0.59); Monocytes % (auto) 7.3 %; Neutrophils # (auto) 9.46 K/uL (1.4-6.5); Neutrophils % (auto) 67.1 %; Platelet Count 319 K/uL (130-400); RDW Coefficient of Variation 13.5 % (11.5-14.5); RDW Standard Deviation 46.6 fL (36.4-46.3); Red Blood Count 3.75 M/uL (4.2-5.4); White Blood Count 14.12 K/uL (4.8-10.8)
[2022-01-12 08:19] LABS: Prothrombin Time 20.9 Seconds (9.0-12.0)
--- NOTE | 2022-01-12 08:38 | Electrocardiogram Report ---
Test Reason : Blood Pressure : / mmHG Vent. 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
[2022-01-12] MEDS: lisinopril 10 MG TAB PO SCH (08:40)
[2022-01-12] MEDS: ATORVASTATIN 40 MG TAB PO SCH (08:40)
[2022-01-12] MEDS: predniSONE 5 MG TAB PO SCH (08:41)
[2022-01-12] MEDS: METOPROLOL TARTRATE 25 MG TAB PO SCH ×2 (08:41→20:29)
[2022-01-12] MEDS: PANTOprazole 40 MG TAB PO SCH (08:41)
[2022-01-12] MEDS: SUCRALFATE 1 GM TAB PO SCH ×3 (08:41→15:59)
[2022-01-12 08:43] LABS: BUN Creatinine Ratio 24.5 (10-20); Calcium 8.6 mg/dl (8.5-10.1); Creatinine Clr Calc Pharmacy 34.7 ml/min; Est GFR (African American) 62.8 ml/min; Est GFR (Non-African American) 54.2 ml/min; Potassium 3.7 mmol/L (3.5-5.1)
[2022-01-12] MEDS ORDERED: MAGNESIUM OXIDE 400 MG TAB PO SCH (09:00)
--- NOTE | 2022-01-12 09:38 | XRay Report ---
XR chest 1V portable HISTORY: 86 years-old Female Pulmonary Edema acute shortness of breath COMPARISON: Chest radiograph 01/11/2022, chest CT 05/05/2021 TECHNIQUE: Portable AP view of the chest FINDINGS: The cardiac silhouette is enlarged. Pulmonary vascular congestion. Calcifications of the mitral annul us. There is no pneumothorax, overt pulmonary edema or large pleural effusion. Trace pleural effusion s. Interstitial coarsening with ill-defined patchy bilateral nodular airspace opacities have slightly improved. Degenerative changes of the shoulders and spine. IMPRESSION: 1. Cardiomegaly perivascular congestion and trace pleural effusions. 2. Bilateral mixed interstitial and nodular consolidative opacities suggestive of multifocal pneumoni a is mildly improved. Continued follow-up is needed. ACT 112: Negative or not required by law. The above report was generated using voice recognition software. It may contain grammatical, syntax o r spelling errors. Electronically signed by: Dane Adan M.D. 01/12/2022 9:37 AM
[2022-01-12] MEDS ORDERED: FUROSEMIDE INJ 20 MG/2 ML VIAL IV ONE (12:32)
[2022-01-12] MEDS: MAGNESIUM CHLORIDE 64MG DELAYED REL TAB PO SCH ×2 (12:50→20:28)
[2022-01-12] MEDS ORDERED: WARFARIN SOD 2.5 MG TAB PO SCH (16:00)
--- NOTE | 2022-01-12 16:24 | Hospitalist Progress Note ---
Date of Service January 12, 2022 Assessment & Plan (1) Weakness: (2) Nausea: (3) Diarrhea: (4) Abdominal pain: (5) Chronic atrial fibrillation: (6) HTN (hypertension): (7) Rheumatoid arthritis: (8) Chronic vertigo: Plan: Acute diastolic CHF Pulmonary hypertension Valvular heart disease -CXR:Moderate pulmonary edema. Monitor I's and O's, daily weight, volume status Received IV Lasix Saturating well on room air Suspected UTI Cultures pending Empirically on Rocephin Abnormal CT abdomen Imaging studies suggestive of possible splenic infarct Currently no significant symptoms Consider further evaluation if needed Hypertension stable Continue lisinopril, metoprolol Atrial fibrillation Continue metoprolol for rate control On Coumadin for anticoagulation Monitor INR Chronic anemia Hb at baseline Rheumatoid arthritis on chronic steroid New onset DM II HbA1C: 6.7, January 2022 Continue insulin for now Acute on chronic diarrhea rule out C. difficile Stool studies pending Hold magnesium oxide Hypomagnesemia Replace electrodes as needed Chronic vertigo Possible functional disability PT/OT eval DVT Px: Coumadin Code Status Full code Admission and Anticipated Discharge Date Admission Date: January 11, 2022 Subjective Patient is seen and examined at bedside States having pleuritic chest discomfort this morning Also reports having mild abdominal soreness generalized Denies any diarrhea today Also denies any shortness of breath, dizziness, nausea Review of Systems Review of Systems: All systems reviewed & are unremarkable except as noted in Subjective Physical Exam Physical Exam: Physical Exam: Vitals signs as noted above General Appearance:Obese, no apparent distress Head: normocephalic, Atraumatic Eyes: normal inspection, EOMI Neck: supple, Trachea midline Respiratory/Chest: Normal breath sounds, mild basal crackles, No accessory muscle use Cardiovascular: S1, S2, No murmur Abdomen/GI:Soft, mild abd tender, Bowel sounds present Extremities/Musculoskeletal:normal inspection, no edema Neurologic/Psych:AAOX3, grossly no focal neurological deficits Skin: normal color, warm Results & Data Results & Data ([facility]) Vital Signs (Past 12 Hours) Vital Signs Temp Pulse Pulse Resp BP Pulse Ox 01/12/22 15:36 84 01/12/22 12:00 36.8 C 81 18 136/80 92 01/12/22 07:56 36.3 C L 81 18 146/76 H 92 01/12/22 07:00 70 Laboratory Results Short CBC 01/11/22 01/12/22 Range/Units 16:31 07:29 WBC 14.79 H 14.12 H (4.8-10.8) K/uL Hgb 11.4 L 11.7 L (12.0-16.0) g/dL Hct 34.7 L 35.7 L (37-47) % Plt Count 297 319 (130-400) K/uL BMP 01/11/22 01/12/22 16:31 07:29 Sodium 134 L 139 Potassium 4.4 3.7 Chloride 98 101 Carbon Dioxide 30 30 BUN 24 H 23 Creatinine 1.05 0.94 Glucose 234 H 82 Calcium 9.2 8.6 Cardiac Enzymes 01/11/22 Range/Units 16:31 Troponin I < 0.03 (0-0.04) ng/ml Liver Function 01/11/22 Range/Units 16:31 Total Bilirubin 0.8 (0.2-1.0) mg/dl AST 9 L (13-39) U/L ALT 6 L (7-52) U/L Alkaline Phosphatase 57 (34-104) U/L Albumin 3.2 L (3.4-5.0) gm/dl Urine 01/11/22 Range/Units 20:13 Urine Color Yellow Urine Appearance Clear (Clear) Urine pH 5.5 (4.5-7.5) Ur Specific [place] 1.034 H (1.000-1.030) Urine Protein Negative (Negative) Urine Glucose (UA) Negative (Negative)
[2022-01-12] MEDS: INSULIN GLARGINE SOLOSTAR 100 UNITS/ML 3 ML PEN SC SCH (20:30)
[2022-01-12] MEDS: cefTRIAXone SODIUM 2,000 MG in DEXTROSE 5% 50 ML IV SCH (23:05)
[2022-01-13 07:14] LABS: Hematocrit (blood only) 32.6 % (37-47); Hemoglobin 10.8 g/dL (12.0-16.0); Mean Corpuscular Hemoglobin 31.1 pg (25-34); Mean Corpuscular Hgb Conc 33.1 g/dL (32-36); Mean Corpuscular Volume 93.9 fL (80-100); Mean Platelet Volume 8.5 fL (7.4-10.4); Platelet Count 281 K/uL (130-400); RDW Coefficient of Variation 13.5 % (11.5-14.5); RDW Standard Deviation 46.1 fL (36.4-46.3); Red Blood Count 3.47 M/uL (4.2-5.4); White Blood Count 12.87 K/uL (4.8-10.8)
[2022-01-13 07:27] LABS: INR 1.8 (0.9-1.1); Prothrombin Time 18.8 Seconds (9.0-12.0)
[2022-01-13 07:42] LABS: Calcium 9.1 mg/dl (8.5-10.1); Creatinine Clr Calc Pharmacy 30.6 ml/min; Est GFR (African American) 53.7 ml/min; Est GFR (Non-African American) 46.3 ml/min; Magnesium 1.4 mg/dl (1.7-2.4); Potassium 3.9 mmol/L (3.5-5.1)
[2022-01-13] MEDS: PANTOprazole 40 MG TAB PO SCH (08:17)
[2022-01-13] MEDS: MAGNESIUM CHLORIDE 64MG DELAYED REL TAB PO SCH ×3 (08:17→21:54)
[2022-01-13] MEDS: predniSONE 5 MG TAB PO SCH (08:17)
[2022-01-13] MEDS: lisinopril 10 MG TAB PO SCH (08:17)
[2022-01-13] MEDS: ATORVASTATIN 40 MG TAB PO SCH (08:17)
[2022-01-13] MEDS: SUCRALFATE 1 GM TAB PO SCH ×3 (08:17→17:27)
[2022-01-13] MEDS: allopurinoL 100 MG TAB PO SCH ×2 (08:17→21:54)
[2022-01-13] MEDS: METOPROLOL TARTRATE 25 MG TAB PO SCH ×2 (08:17→21:54)
[2022-01-13] MEDS: INSULIN ASPART PER UNIT SC SCH ×4 (08:19→21:53)
[2022-01-13] MEDS ORDERED: MAGNESIUM SULFATE / D5W 1 GM/100 ML BAG IV ONE (08:30)
[2022-01-13] MEDS ORDERED: FUROSEMIDE 40 MG/4 ML VIAL IV SCH (09:00)
--- NOTE | 2022-01-13 09:06 | XRay Report ---
XR chest 1V portable CLINICAL HISTORY: Follow-up vascular congestion. COMPARISON STUDY: 01/12/2022 TECHNIQUE: 1 view of the chest FINDINGS: Single frontal view of the chest demonstrates the heart to again be enlarged. Compared to the previou s study, there is a decreased inspiratory effort with elevation of hemidiaphragms and crowding of the bronchovascular markings at the lung bases and centrally. There is mild central vascular congestion. There is no definite peripheral edema. There is no evidence for pleural effusion. No confluent alveo lar opacities are identified. There is no acute osseous pathology. IMPRESSION: 1. Decreased inspiration with evidence for central vascular congestion. No peripheral interstitial ed rivera. ACT 112: Negative or not required by law. Electronically signed by: Will Shelton M.D. 01/13/2022 9:04 AM
--- NOTE | 2022-01-13 09:48 | Cardiology Consultation ---
Date of Consultation January 13, 2022 Assessment & Plan (1) Chronic atrial fibrillation: (2) Splenic infarct: Ventricular rates well controlled. Asymptomatic. Labile outpatient INRs. INR 1.9 today. Has been subtherapeutic in the past. Possible embolic event causing a splenic infarct. ? compliance with medications as patient has been more forgetful lately. 1. Stop Coumadin and transition to Eliquis starting this evening. 2. Will defer to primary team regarding if GI needs involved for assessment of the splenic infarct. (3) (HFpEF) heart failure with preserved ejection fraction: Patient appears euvolemic on exam. Not normally on diuretics at time. Recommend transitioning from IV Lasix to PO tomorrow am. Trend renal function and replace electrolytes as necessary. 2g na diet. Wean o2 as tolerated. (4) Generalized muscle weakness: Chronic vertigo and gait instability- worsened recently, possibly in the setting of dehydration. 1. Recommend PT/OT consultation- ? possibly needs rehab vs placement on discharge (5) Abdominal pain: ? splenic infarct in the setting of subtherapeutic INRs. Plan as above. Case discussed with Dr. Samuel Supervising Physician Co-Signing Physician Notes I discussed the case with the nurse practitioner and reviewed the medical record. It seems that this elderly patient is having trouble with medication compliance. I agree with the plan as outlined. She may be best treated with a NOAC rather than trying the main pain therapeutic levels on warfarin. History of Present Illness Reason for Consultation: HFpEF Requesting Physician: Trixie romanoist Attending Physician: Josue Harden MD History of Present Illness 86-year-old woman presented to the ED with her daughter for generalized weakness that has progressively worsened over the past week in the setting of having diarrhea. Of note, the patient was seen the emergency department 2 days ago for vertigo with unremarkable work-up charge after improvement.She has been progressively weak to the point where she was unable to walk. EKG demonstrates atrial fibrillation without acute changes. Chest x-ray was interpreted as moderate pulmonary edema that appears more asymmetric/more prominent in right lung van, thought to be related to PNA. Today's CXR improved. Recent outpatient echo showed Normal LV systolic function, EF 65%. Moderate aortic sclerosis without stenosis. Moderate mitral regurgitation, stable from prior study. Mild pulm hypertension. When patient was ambulated she became short of breath and hypoxic in the 80s. She was placed on 2L o2 and given x1 dose of IV Lasix. Urine suspicious for UTI. CT of the abdomen pelvis was performed and shows evidence of splenic infarct which is age-indeterminate but new from May however given the patient's report of left-sided abdominal pain in the setting of being subtherapeutic on her INR 2 days ago may reflect acute finding. Upon entrance into the room patient ambulating independently from the rest room. Feeling well without complaint. Seems somewhat forgetful. No chest pain but does describe a ? sharp pain from her legs to neck if she holds her breath. No exertional pain. Abdominal tenderness at times. Notes that sometimes she feels very weak but denied any recent falls. She is wondering if she is dehydrated. No further bowel movements since admission per the patient. Tele: Afib 70s. I&O: +2L Weight: 79.7>>78.7 INR 1.8 (01/13) 1.Chronic Atrial fibrillation - controlled rates on exam, chronic Coumadin. No iris arrhythmias on monitor 2.H/o Vertigo - has f/u with [facility] later this month 3.HTN - controlled 4.HLD - controlled per last labs. 5.Moderate MR 6.Mild AI 7.History of gait instability, improved with rehab in the past Allergies Allergy/AdvReac Type Severity Reaction Status Date / Time No Known Drug Allergies Allergy Unknown . Verified 01/11/22 19:50 nickel AdvReac Unknown PAIN WITH Verified 01/11/22 19:50 HARDWARE IN ANKLE --> REMOVED Home Medications Medication Instructions Recorded Confirmed Type allopurinol 100 mg tablet 100 mg PO BID 01/15/19 01/11/22 History omeprazole 40 mg capsule,delayed 40 mg PO QAM 01/15/19 01/11/22 History release warfarin 2 mg tablet 2 mg PO DAILY #90 tab 04/18/19 01/11/22 Rx metoprolol tartrate 25 mg tablet 25 mg PO BID tab 06/05/19 01/11/22 History cholecalciferol (vitamin D3) 25 25 mcg PO QAM 10/06/21 01/11/22 History mcg (1,000 unit) tablet (Vitamin D3) magnesium oxide 400 mg PO BID 10/06/21 01/11/22 History prednisone 5 mg tablet 5 mg PO QAM 10/06/21 01/11/22 History amoxicillin 500 mg capsule 2,000 mg PO UD PRN 12/13/21 01/11/22 History lisinopril 10 mg tablet 10 mg PO QAM 12/13/21 01/11/22 History acetaminophen 325 mg capsule 650 mg PO Q6H PRN #60 cap 12/16/21 01/11/22 Rx (Tylenol) atorvastatin 40 mg tablet 40 mg PO DAILY 01/09/22 01/11/22 History colchicine 0.6 mg tablet 0.6 mg PO UD 01/09/22 01/11/22 History meclizine 25 mg tablet 25 mg PO TID PRN #14 tab 01/09/22 01/11/22 Rx ondansetron HCl 8 mg tablet 8 mg PO Q8 PRN 01/09/22 01/11/22 History sucralfate 1 gram tablet 1 g PO AC 01/09/22 01/11/22 History Patient History Medical History Atrial fibrillation REASON FOR COUMADIN>FOLLOWED BY [facility] GERD (gastroesophageal reflux disease) Hemorrhage following tonsillectomy and adenoidectomy History of anxiety History of cardioversion X 1 "OVER 30 YEARS AGO" History of IBS History of TMJ disorder HTN (hypertension) Hx of gout Hx of migraines Hx of vertigo Hyperlipidemia Osteoarthritis Rheumatoid arthritis Surgical History H/O wisdom tooth extraction History of cardiac cath NO STENTS, REMOTE HX History of cataract surgery RT/LEFT History of cholecystectomy History of colonoscopy History of conization of cervix History of esophagogastroduodenoscopy (EGD) History of open reduction and internal fixation (ORIF) procedure LEFT ANKLE (+HARDWARE REMOVED) History of total knee replacement LEFT Family History Father Family history of diabetes mellitus Mother Family history of diabetes mellitus Sister Family history of diabetes mellitus Other Heart disease No family history of adverse response to anesthesia Social History Smoking Status: Never smoker Second Hand Exposure: No; Hx Alcohol Use: No Hx Substance Use: No Preferred Language: Kyrgyz Communication Ability: Effective Communication Ability Comment: hard of hearing [place] Hand Required: No Beliefs That Will Affect Care: None marital status: / Current Living Situation: Alone Current Living Situation Comment: [employer] current occupational status: retired Other Information That Helps Us Care for You: No Feels Safe at Home: Yes Safety Concerns: Feels Safe At This Time Assistive Devices: Oxygen - Continuous Review of Systems Review of Systems: All systems reviewed & are unremarkable except as noted in HPI & below Physical Exam Physical Exam: General: NAD. A+Ox3. HEENT: Normocephalic. Atraumatic. PERRL. EOMI. Conjunctiva and sclera clear. NECK: No carotid bruits. No JVD. Carotid u pstrokes are brisk. Heart: Irregularly irregular. S1 and S2 noted without murmur, rubs, gallops. PMI non displaced. Lungs: Clear to auscultation and percussion. No wheezes, rhonchi, rales. Abdomen: Normal bowel sounds. Soft. Nontender. No masses or organomegaly. No abdominal bruits. Extremities: trace edema. No clubbing or cyanosis. Pulses: radial=2/4, posterior tibial=2/4, dorsalis pedis = 2/4. NEURO: No focal deficits. PSYCH: Normal. Results & Data ([facility]) Vital Signs (Past 12 Hours) Vital Signs Temp Pulse Pulse Pulse Resp BP BP 01/13/22 07:30 37.2 C 82 18 134/74 01/13/22 04:29 37.1 C 71 18 147/75 H 01/13/22 01:13 84 01/12/22 23:04 36.7 C 89 18 141/76 H Pulse Ox 01/13/22 07:30 94 01/13/22 04:29 96 01/13/22 01:13 01/12/22 23:04 92 Laboratory Results 01/13/22 01/13/22 01/13/22 Range/Units 07:59 07:56 06:44 WBC (4.8-10.8) K/uL RBC (4.2-5.4) M/uL Hgb (12.0-16.0) g/dL Hct (37-47) % MCV (80-100) fL MCH (25-34) pg MCHC (32-36) g/dL RDW Std Deviation (36.4-46.3) fL RDW Coeff of Yue (11.5-14.5) % Plt Count (130-400) K/uL MPV (7.4-10.4) fL PT (9.0-12.0) Seconds INR (0.9-1.1) Sodium (136-145) mmol/L Potassium (3.5-5.1) mmol/L Chloride (98-107) mmol/L Carbon Dioxide (21-32) mmol/L Anion Gap (3-11) BUN (6-23) mg/dl Creatinine (0.6-1.2) mg/dl Est Cr Clr Drug Dosing ml/min Est GFR ( Amer) ml/min Est GFR (Non-Af Amer) ml/min BUN/Creatinine Ratio (10-20) Glucose (70-99(Fasting)) mg/dl POC Glucose 144 H 133 H (70-99) mg/dl Calcium (8.5-10.1) mg/dl Magnesium (1.7-2.4) mg/dl Procalcitonin 0.11 (0-0.5) ng/ml 01/13/22 01/13/22 01/13/22 Range/Units 06:44 06:44 06:44 WBC 12.87 H (4.8-10.8) K/uL RBC 3.47 L (4.2-5.4) M/uL Hgb 10.8 L (12.0-16.0) g/dL Hct 32.6 L (37-47) % MCV 93.9 (80-100) fL MCH 31.1 (25-34) pg MCHC 33.1 (32-36) g/dL RDW Std Deviation 46.1 (36.4-46.3) fL RDW Coeff of Yue 13.5 (11.5-14.5) % Plt Count 281 (130-400) K/uL MPV 8.5 (7.4-10.4) fL PT 18.8 H (9.0-12.0) Seconds INR 1.8 H (0.9-1.1) Sodium 137 (136-145) mmol/L Potassium 3.9 (3.5-5.1) mmol/L Chloride 100 (98-107) mmol/L Carbon Dioxide 29 (21-32) mmol/L Anion Gap 8 (3-11) BUN 31 H (6-23) mg/dl Creatinine 1.07 (0.6-1.2) mg/dl Est Cr Clr Drug Dosing 30.6 ml/min Est GFR ( Amer) 53.7 ml/min Est GFR (Non-Af Amer) 46.3 ml/min BUN/Creatinine Ratio 29.0 H (10-20) Glucose 127 H (70-99(Fasting)) mg/dl POC Glucose (70-99) mg/dl Calcium 9.1 (8.5-10.1) mg/dl Magnesium 1.4 L (1.7-2.4) mg/dl Procalcitonin (0-0.5) ng/ml 01/12/22 01/12/22 01/12/22 Range/Units 20:06 16:49 11:48 WBC (4.8-10.8) K/uL RBC (4.2-5.4) M/uL Hgb (12.0-16.0) g/dL Hct (37-47) % MCV (80-100) fL MCH (25-34) pg MCHC (32-36) g/dL RDW Std Deviation (36.4-46.3) fL RDW Coeff of Yue (11.5-14.5) % Plt Count (130-400) K/uL MPV (7.4-10.4) fL PT (9.0-12.0) Seconds INR (0.9-1.1) Sodium (136-145) mmol/L Potassium (3.5-5.1) mmol/L Chloride (98-107) mmol/L Carbon Dioxide (21-32) mmol/L Anion Gap (3-11) BUN (6-23) mg/dl Creatinine (0.6-1.2) mg/dl Est Cr Clr Drug Dosing ml/min Est GFR ( Amer) ml/min Est GFR (Non-Af Amer) ml/min BUN/Creatinine Ratio (10-20) Glucose (70-99(Fasting)) mg/dl POC Glucose 176 H 159 H 138 H (70-99) mg/dl Calcium (8.5-10.1) mg/dl Magnesium (1.7-2.4) mg/dl Procalcitonin (0-0.5) ng/ml Diagnostic Findings Echo 12/2021 The examination is adequate to evaluate the referral indication. The left ventricular cavity size is normal. The LV wall thickness is mildly increased (concentric). The left ventricular wall motion is normal. The qualitative LV ejection fraction is 65-69% (normal). Moderate aortic valve sclerosis is present. Mild aortic valve regurgitation is present. There is severe calcification of the posterior mitral valve annulus with markedly restricted posterior leaflet mobility The mitral valve leaflets thickness is moderately increased. Moderate 2-3+ mitral regurgitation is present. Mild pulmonary hypertension is present. The estimated pulmonary artery systolic pressure is 40-45mm Hg. Compared to prior study of 07/29/2019, there is no significant change.
[2022-01-13] MEDS ORDERED: POLYETHYLENE (MIRALAX) 17 GM PACK PO PRN (12:48)
[2022-01-13] MEDS ORDERED: POLYETHYLENE (MIRALAX) 17 GM PACK PO ONE (12:49)
--- NOTE | 2022-01-13 14:45 | Hospitalist Progress Note ---
Date of Service January 13, 2022 Assessment & Plan (1) Weakness: (2) Nausea: (3) Diarrhea: (4) Abdominal pain: (5) Chronic atrial fibrillation: (6) HTN (hypertension): (7) Rheumatoid arthritis: (8) Chronic vertigo: Plan: Acute diastolic CHF Pulmonary hypertension Valvular heart disease -CXR:Moderate pulmonary edema. Monitor I's and O's, daily weight, volume status Received IV Lasix>>Transition to PO lasix tomorrow Saturating well on room air Appreciate Cardiology Input PT/OT Suspected UTI Blood Cx: Negative to date Urine Culture: Negative Empirically on Rocephin day #[address] abdomen Imaging studies suggestive of possible splenic infarct Currently no significant symptoms Consider further evaluation if needed Conservative management Hypertension stable Continue lisinopril, metoprolol Atrial fibrillation Continue metoprolol for rate control Medication compliance issues with coumadin Transitioned to Apixaban for anticoagulation Chronic anemia Hb at baseline Rheumatoid arthritis on chronic steroid New onset DM II HbA1C: 6.7, January 2022 Continue insulin for now Acute on chronic diarrhea rule out C. difficile Stool studies pending Resolved Hypomagnesemia Replace electrodes as needed Chronic vertigo Possible functional disability PT/OT eval DVT Px: Apixaban Code Status Full code Admission and Anticipated Discharge Date Admission Date: January 11, 2022 Subjective Patient is seen and examined at bedside States feeling better Denies chest pain, dyspnea, dizziness, nausea, abd pain CXR shows improved congestion Review of Systems Review of Systems: All systems reviewed & are unremarkable except as noted in Subjective Physical Exam Physical Exam: Physical Exam: Vitals signs as noted above General Appearance:Obese, no apparent distress Head: normocephalic, Atraumatic Eyes: normal inspection, EOMI Neck: supple, Trachea midline Respiratory/Chest: Normal breath sounds, mild basal crackles, No accessory muscle use Cardiovascular: S1, S2, No murmur Abdomen/GI:Soft, mild abd tender, Bowel sounds present Extremities/Musculoskeletal:normal inspection, no edema Neurologic/Psych:AAOX3, grossly no focal neurological deficits Skin: normal color, warm Results & Data Results & Data ([facility]) Vital Signs (Past 12 Hours) Vital Signs Temp Pulse Pulse Pulse Resp BP BP 01/13/22 10:50 36.8 C 83 18 128/64 01/13/22 09:50 86 01/13/22 07:30 37.2 C 82 18 134/74 01/13/22 04:29 37.1 C 71 18 147/75 H Pulse Ox 01/13/22 10:50 90 01/13/22 09:50 01/13/22 07:30 94 01/13/22 04:29 96 Laboratory Results Short CBC 01/13/22 Range/Units 06:44 WBC 12.87 H (4.8-10.8) K/uL Hgb 10.8 L (12.0-16.0) g/dL Hct 32.6 L (37-47) % Plt Count 281 (130-400) K/uL BMP 01/13/22 06:44 Sodium 137 Potassium 3.9 Chloride 100 Carbon Dioxide 29 BUN 31 H Creatinine 1.07 Glucose 127 H Calcium 9.1
[2022-01-13] MEDS ORDERED: WARFARIN SOD 4 MG TAB PO SCH (16:00)
[2022-01-13 20:37] LABS: Adenovirus F 40/41 PCR Not Detected (NotDetected); Astrovirus PCR Not Detected (NotDetected); Campylobacter PCR Not Detected (NotDetected); Clostridium diff Toxin A/B PCR Not Detected (NotDetected); Cryptosporidium PCR Not Detected (NotDetected); Cyclospora cayetanensis PCR Not Detected (NotDetected); Entamoeba histolytica PCR Not Detected (NotDetected); Enteroaggregative E.coli(EAEC) Not Detected (NotDetected); Enteropathogenic E.coli (EPEC) Not Detected (NotDetected); Enterotoxigenic E.coli (ETEC) Not Detected (NotDetected); Giardia lamblia PCR Not Detected (NotDetected); Norovirus GI/GII PCR Not Detected (NotDetected); Plesiomonas shigelloides PCR Not Detected (NotDetected); Rotavirus A PCR Not Detected (NotDetected); Salmonella PCR Not Detected (NotDetected); Sapovirus PCR Not Detected (NotDetected); Shiga-like Toxin E.coli (STEC) Not Detected (NotDetected); Shigella/Enteroinvasive E.coli Not Detected (NotDetected); Vibrio cholerae PCR Not Detected (NotDetected); Vibrio species PCR Not Detected (NotDetected); Yersinia enterocolitica PCR Not Detected (NotDetected)
[2022-01-13] MEDS: APIXABAN 5 MG TABLET PO SCH (21:54)
[2022-01-13] MEDS: INSULIN GLARGINE SOLOSTAR 100 UNITS/ML 3 ML PEN SC SCH (21:55)
[2022-01-13] MEDS: cefTRIAXone SODIUM 2,000 MG in DEXTROSE 5% 50 ML IV SCH (23:08)
[2022-01-14 06:14] LABS: Hematocrit (blood only) 33.9 % (37-47); Hemoglobin 11.1 g/dL (12.0-16.0); Mean Corpuscular Hemoglobin 31.2 pg (25-34); Mean Corpuscular Hgb Conc 32.7 g/dL (32-36); Mean Corpuscular Volume 95.2 fL (80-100); Mean Platelet Volume 8.6 fL (7.4-10.4); Platelet Count 297 K/uL (130-400); RDW Coefficient of Variation 13.4 % (11.5-14.5); RDW Standard Deviation 46.7 fL (36.4-46.3); Red Blood Count 3.56 M/uL (4.2-5.4)
[2022-01-14 06:47] LABS: BUN Creatinine Ratio 38.6 (10-20); Calcium 9.2 mg/dl (8.5-10.1); Creatinine Clr Calc Pharmacy 39.4 ml/min; Magnesium 1.6 mg/dl (1.7-2.4); Potassium 3.8 mmol/L (3.5-5.1)
[2022-01-14] MEDS ORDERED: MAGNESIUM SULFATE / D5W 1 GM/100 ML BAG IV ONE (07:45)
[2022-01-14] MEDS: MAGNESIUM CHLORIDE 64MG DELAYED REL TAB PO SCH ×3 (08:04→20:14)
[2022-01-14] MEDS: lisinopril 10 MG TAB PO SCH (08:04)
[2022-01-14] MEDS: APIXABAN 5 MG TABLET PO SCH ×2 (08:04→20:09)
[2022-01-14] MEDS: ATORVASTATIN 40 MG TAB PO SCH (08:04)
[2022-01-14] MEDS: FUROSEMIDE 40 MG TAB PO SCH (08:04)
[2022-01-14] MEDS: PANTOprazole 40 MG TAB PO SCH (08:04)
[2022-01-14] MEDS: SUCRALFATE 1 GM TAB PO SCH ×3 (08:04→17:16)
[2022-01-14] MEDS: METOPROLOL TARTRATE 25 MG TAB PO SCH ×2 (08:05→20:14)
[2022-01-14] MEDS: predniSONE 5 MG TAB PO SCH (08:05)
[2022-01-14] MEDS: allopurinoL 100 MG TAB PO SCH ×2 (08:05→20:08)
[2022-01-14] MEDS: INSULIN ASPART PER UNIT SC SCH ×4 (09:06→20:13)
--- NOTE | 2022-01-14 09:43 | Cardiology Progress Note ---
Date of Service January 14, 2022 Assessment & Plan (1) Chronic atrial fibrillation: (2) Splenic infarct: (3) (HFpEF) heart failure with preserved ejection fraction: (4) Generalized muscle weakness: (5) Abdominal pain: Plan: The patient is clinically stable. Eliquis restarted last night. No additional recommendations at this time. Admission and Anticipated Discharge Date Admission Date: January 11, 2022 Subjective The patient is alert today. He has no new complaints. Review of Systems Review of Systems: Review of Systems: See HPI for pertinent positives. All other 10 point review of systems are negative. Physical Exam Physical Exam: General: no acute distress and stated age Head: normocephalic, no masses, lesions, tenderness or abnormalities Eyes: conjunctiva are pink and non-injected, sclera clear Neck: supple, no adenopathy, no bruits, normal jugular venous pulse, no hepatojugular reflux Chest: normal shape and normal respiratory effort Lungs: clear to auscultation and percussion Cardiac Exam: - irregular rate & rhythm, no murmurs gallops or rubs - normal S1, normal S2 Pulses: 2(+) throughout Abdomen: abdomen soft, non-tender, no abnormal masses and no hepatosplenomegaly Musculoskeletal: no gait disturbance, no joint inflammation, no deforming arthritis Extremities: no edema and no cyanosis Neuro: grossly normal exam Results & Data ([facility]) Vital Signs (Past 12 Hours) Vital Signs Temp Pulse Pulse Pulse Resp BP BP 01/14/22 06:44 36.6 C 74 20 150/81 H 01/14/22 03:21 36.8 C 78 18 143/75 H 01/13/22 23:05 36.3 C L 77 16 142/75 H 01/13/22 22:18 70 Pulse Ox 01/14/22 06:44 94 01/14/22 03:21 93 01/13/22 23:05 93 01/13/22 22:18 Laboratory Results Laboratory Results - last 24 hr 01/13/22 01/13/22 01/13/22 11:36 16:25 18:40 WBC RBC Hgb Hct MCV MCH MCHC RDW Std Deviation RDW Coeff of Yue Plt Count MPV Sodium Potassium Chloride Carbon Dioxide Anion Gap BUN Creatinine Est Cr Clr Drug Dosing Est GFR ( Amer) Est GFR (Non-Af Amer) BUN/Creatinine Ratio Glucose POC Glucose 227 H 151 H Calcium Magnesium Stl C. cayetanensis PCR Not Detected Stool Rotavirus A PCR Not Detected Stl Adenov F 40/41 PCR Not Detected Stool Astrovirus (PCR) Not Detected Stool Campylobacter PCR Not Detected Stl C. diff Tox A/B PCR Not Detected Stool Cryptosporidium PCR Not Detected Stl E.coli Shiga Tox PCR Not Detected Stl Enterotoxigenic E PCR Not Detected Stool EPEC (PCR) Not Detected Stool EAEC (PCR) Not Detected Stl E. histolytica PCR Not Detected Stool Giardia Lamblia PCR Not Detected Stool Salmonella PCR Not Detected Stool Sapovirus (PCR) Not Detected Stl P. shigelloides PCR Not Detected Stl Shigella/EIEC PCR Not Detected St Y.enterocolitica PCR Not Detected Stool Vibrio (PCR) Not Detected Stl Vibrio cholerae PCR Not Detected Stl Norovirus GI/GII PCR Not Detected 01/13/22 01/14/22 01/14/22 20:18 05:35 05:35 WBC 12.40 H RBC 3.56 L Hgb 11.1 L Hct 33.9 L MCV 95.2 MCH 31.2 MCHC 32.7 RDW Std Deviation 46.7 H RDW Coeff of Yue 13.4 Plt Count 297 MPV 8.6 Sodium 138 Potassium 3.8 Chloride 101 Carbon Dioxide 32 Anion Gap 5 BUN 32 H Creatinine 0.83 Est Cr Clr Drug Dosing 39.4 Est GFR ( Amer) 73.0 Est GFR (Non-Af Amer) 63.0 BUN/Creatinine Ratio 38.6 H Glucose 92 POC Glucose 206 H Calcium 9.2 Magnesium 1.6 L Stl C. cayetanensis PCR Stool Rotavirus A PCR Stl Adenov F 40/41 PCR Stool Astrovirus (PCR) Stool Campylobacter PCR Stl C. diff Tox A/B PCR Stool Cryptosporidium PCR Stl E.coli Shiga Tox PCR Stl Enterotoxigenic E PCR Stool EPEC (PCR) Stool EAEC (PCR) Stl E. histolytica PCR Stool Giardia Lamblia PCR Stool Salmonella PCR Stool Sapovirus (PCR) Stl P. shigelloides PCR Stl Shigella/EIEC PCR St Y.enterocolitica PCR Stool Vibrio (PCR) Stl Vibrio cholerae PCR Stl Norovirus GI/GII PCR 01/14/22 07:47 WBC RBC Hgb Hct MCV MCH MCHC RDW Std Deviation RDW Coeff of Yue Plt Count MPV Sodium Potassium Chloride Carbon Dioxide Anion Gap BUN Creatinine Est Cr Clr Drug Dosing Est GFR ( Amer) Est GFR (Non-Af Amer) BUN/Creatinine Ratio Glucose POC Glucose 97 Calcium Magnesium Stl C. cayetanensis PCR Stool Rotavirus A PCR Stl Adenov F PCR Stool Astrovirus (PCR) Stool Campylobacter PCR Stl C. diff Tox A/B PCR Stool Cryptosporidium PCR Stl E.coli Shiga Tox PCR Stl Enterotoxigenic E PCR Stool EPEC (PCR) Stool EAEC (PCR) Stl E. histolytica PCR Stool Giardia Lamblia PCR Stool Salmonella PCR Stool Sapovirus (PCR) Stl P. shigelloides PCR Stl Shigella/EIEC PCR St Y.enterocolitica PCR Stool Vibrio (PCR) Stl Vibrio cholerae PCR Stl Norovirus GI/GII PCR Medications Administered Current Inpatient Medications Acetaminophen (Acetaminophen 325 Mg Tab) 650 mg PO Q4H PRN PRN Reason: Pain or Fever Stop: 02/11/22 00:16 Allopurinol (Allopurinol 100 Mg Tab) 100 mg PO BID EVIE Stop: 02/10/22 22:59 Last Admin: 01/14/22 08:05 Dose: 100 mg Documented by: Apixaban (Apixaban 5 Mg Tablet) 5 mg PO BID EVIE Stop: 02/12/22 20:59 Last Admin: 01/14/22 08:04 Dose: 5 mg Documented by: Atorvastatin Calcium (Atorvastatin 40 Mg Tab) 40 mg PO DAILY EVIE Stop: 02/11/22 08:59 Last Admin: 01/14/22 08:04 Dose: 40 mg Documented by: Dextrose (Dextrose 50% 50 Ml Syringe) 25 - 50 ml IV UD PRN; Protocol PRN Reason: Hypoglycemia Protocol Stop: 02/11/22 00:16 Furosemide (Furosemide 40 Mg Tab) 40 mg PO QAM EVIE Stop: 02/13/22 08:59 Last Admin: 01/14/22 08:04 Dose: 40 mg Documented by: Glucagon (Glucagon For Inj 1 Mg Vial) 1 mg SQ UD PRN; Protocol PRN Reason: Hypoglycemia Protocol Stop: 02/11/22 00:16 Glucose (Glucose 10 Tabs/Tube) 4 - 8 tabs PO UD PRN; Protocol PRN Reason: Hypoglycemia Protocol Stop: 02/11/22 00:16 Glucose (Glucose 40% Gel 15 Gm Tube) 15 - 30 gm PO UD PRN; Protocol PRN Reason: Hypoglycemia Protocol Stop: 02/11/22 00:16 Promethazine HCl 12.5 mg/ (Sodium Chloride) 50.5 mls @ 202 mls/hr IV Q6H PRN PRN Reason: Nausea And Vomiting Stop: 02/11/22 00:16 Ceftriaxone Sodium 2,000 mg/ (Dextrose) 70 mls @ 100 mls/hr IV Q24H EVIE; Protocol Stop: 01/14/22 23:41 Last Infusion: 01/13/22 23:50 Dose: Infused Documented by: Magnesium Sulfate/Dextrose (Magnesium Sulfate / D5w) 1 gm in 100 mls @ 50 mls/hr IV 0745 ONE Stop: 01/14/22 09:44 Last Admin: 01/14/22 08:05 Dose: 50 mls/hr Documented by: Insulin Aspart (Insulin Aspart Per Unit) 0 units SC ACHS [facility] Stop: 02/11/22 00:16 Last Admin: 01/14/22 09:06 Dose: 2 units Documented by: Insulin Glargine (Insulin Glargine Solostar 100 Units/Ml 3 Ml Pen) 5 units SC HS [facility] Stop: 02/11/22 20:59 Last Admin: 01/13/22 21:55 Dose: 5 units Documented by: Lisinopril (Lisinopril 10 Mg Tab) 10 mg PO QAM [facility] Stop: 02/11/22 08:59 Last Admin: 01/14/22 08:04 Dose: 10 mg Documented by: Magnesium Chloride (Magnesium Chloride 64mg Delayed Rel Tab) 64 mg PO TID [facility] Stop: 02/11/22 13:59 Last Admin: 01/14/22 08:04 Dose: 64 mg Documented by: Magnesium Oxide (Magnesium Oxide 400 Mg Tab) 400 mg PO BID [facility] Stop: 02/11/22 08:59 Last Admin: 01/12/22 08:41 Dose: 400 mg Documented by: Metoprolol Tartrate (Metoprolol Tartrate 25 Mg Tab) 25 mg PO BID [facility] Stop: 02/11/22 08:59 Last Admin: 01/14/22 08:05 Dose: 25 mg Documented by: Miscellaneous (Carbohydrates For Hypoglycemia ) 15 - 30 gm PO UD PRN PRN Reason: Hypoglycemia Protocol Stop: 02/11/22 00:16 Pantoprazole Sodium (Pantoprazole 40 Mg Tab) [facility] Stop: 02/11/22 08:59 Last Admin: 01/14/22 08:04 Dose: 40 mg Documented by: Polyethylene Glycol (Polyethylene (Miralax) 17 Gm Pack) 17 gm PO DAILY PRN PRN Reason: Constipation Stop: 02/12/22 12:47 Prednisone (Prednisone 5 Mg Tab) [facility] Stop: 02/11/22 08:59 Last Admin: 01/14/22 08:05 Dose: 5 mg Documented by: Sucralfate (Sucralfate 1 Gm Tab) 1 gm PO [facility] Stop: 02/11/22 07:29 Last Admin: 01/14/22 08:04 Dose: 1 gm Documented by:
--- NOTE | 2022-01-14 14:48 | Hospitalist Progress Note ---
Date of Service January 14, 2022 Assessment & Plan (1) Weakness: (2) Nausea: (3) Diarrhea: (4) Abdominal pain: (5) Chronic atrial fibrillation: (6) HTN (hypertension): (7) Rheumatoid arthritis: (8) Chronic vertigo: Plan: Acute diastolic CHF Pulmonary hypertension Valvular heart disease -CXR:Moderate pulmonary edema. Monitor I's and O's, daily weight, volume status Received IV Lasix>> PO lasix Saturating well on room air Appreciate Cardiology Input PT/OT My need 2 step prior to discharge Continue Lasix 40mg daily Plan to discharge home in next 24-48 hrs Suspected UTI Blood Cx: Negative to date Urine Culture: Negative Empirically received Rocephin Abnormal CT abdomen Imaging studies suggestive of possible splenic infarct Currently asymptomatic Consider further evaluation if needed Conservative management Hypertension stable Continue lisinopril, metoprolol Atrial fibrillation Continue metoprolol for rate control Medication compliance issues with Coumadin Transitioned to Apixaban for anticoagulation Chronic anemia Hb at baseline Rheumatoid arthritis on chronic steroid New onset DM II HbA1C: 6.7, January 2022 Continue insulin for now Acute on chronic diarrhea Stool studies Negative Monitor Hypomagnesemia Replace electrodes as needed Chronic vertigo Possible functional disability PT/OT eval DVT Px: Apixaban Code Status Full code Admission and Anticipated Discharge Date Admission Date: January 11, 2022 Subjective Patient is seen and examined at bedside Saturating low 90s on room air No new complaints Subjectively feels improving Denies chest pain, dyspnea, dizziness, nausea, abd pain Review of Systems Review of Systems: All systems reviewed & are unremarkable except as noted in Subjective Physical Exam Physical Exam: Physical Exam: Vitals signs as noted above General Appearance:Obese, no apparent distress Head: normocephalic, Atraumatic Eyes: normal inspection, EOMI Neck: supple, Trachea midline Respiratory/Chest: Normal breath sounds, mild basal crackles, No accessory muscle use Cardiovascular: S1, S2, No murmur Abdomen/GI:Soft, mild abd tender, Bowel sounds present Extremities/Musculoskeletal:normal inspection, no edema Neurologic/Psych:AAOX3, grossly no focal neurological deficits Skin: normal color, warm Results & Data Results & Data ([facility]) Vital Signs (Past 12 Hours) Vital Signs Temp Pulse Resp BP Pulse Ox 01/14/22 12:08 37.0 C 78 20 131/79 91 01/14/22 09:52 92 01/14/22 06:44 36.6 C 74 20 150/81 H 94 01/14/22 03:21 36.8 C 78 18 143/75 H 93 Laboratory Results Short CBC 01/14/22 Range/Units 05:35 WBC 12.40 H (4.8-10.8) K/uL Hgb 11.1 L (12.0-16.0) g/dL Hct 33.9 L (37-47) % Plt Count 297 (130-400) K/uL BMP 01/14/22 05:35 Sodium 138 Potassium 3.8 Chloride 101 Carbon Dioxide 32 BUN 32 H Creatinine 0.83 Glucose 92 Calcium 9.2
[2022-01-14] MEDS: INSULIN GLARGINE SOLOSTAR 100 UNITS/ML 3 ML PEN SC SCH (20:13)
[2022-01-14] MEDS: cefTRIAXone SODIUM 2,000 MG in DEXTROSE 5% 50 ML IV SCH (22:01)
[2022-01-15 05:52] LABS: Hematocrit (blood only) 32.6 % (37-47); Hemoglobin 10.8 g/dL (12.0-16.0); Mean Corpuscular Hemoglobin 31.2 pg (25-34); Mean Corpuscular Hgb Conc 33.1 g/dL (32-36); Mean Corpuscular Volume 94.2 fL (80-100); Mean Platelet Volume 8.5 fL (7.4-10.4); Platelet Count 303 K/uL (130-400); RDW Coefficient of Variation 13.4 % (11.5-14.5); RDW Standard Deviation 46.2 fL (36.4-46.3); Red Blood Count 3.46 M/uL (4.2-5.4); White Blood Count 11.57 K/uL (4.8-10.8)
[2022-01-15 06:14] LABS: Calcium 9.2 mg/dl (8.5-10.1); Est GFR (African American) 69.9 ml/min; Est GFR (Non-African American) 60.3 ml/min; Magnesium 1.5 mg/dl (1.7-2.4); Potassium 3.9 mmol/L (3.5-5.1)
[2022-01-15] MEDS ORDERED: MAGNESIUM SULFATE / D5W 1 GM/100 ML BAG IV ONE (07:45)
[2022-01-15] MEDS: MAGNESIUM CHLORIDE 64MG DELAYED REL TAB PO SCH (07:54)
[2022-01-15] MEDS: allopurinoL 100 MG TAB PO SCH (07:54)
[2022-01-15] MEDS: FUROSEMIDE 40 MG TAB PO SCH (07:54)
[2022-01-15] MEDS: METOPROLOL TARTRATE 25 MG TAB PO SCH (07:54)
[2022-01-15] MEDS: ATORVASTATIN 40 MG TAB PO SCH (07:54)
[2022-01-15] MEDS: APIXABAN 5 MG TABLET PO SCH (07:54)
[2022-01-15] MEDS: predniSONE 5 MG TAB PO SCH (07:54)
[2022-01-15] MEDS: lisinopril 10 MG TAB PO SCH (07:54)
[2022-01-15] MEDS: PANTOprazole 40 MG TAB PO SCH (07:55)
[2022-01-15] MEDS: SUCRALFATE 1 GM TAB PO SCH (08:19)
[2022-01-15] MEDS: INSULIN ASPART PER UNIT SC SCH (08:20)
--- NOTE | 2022-01-15 10:46 | Hospitalist Progress Note ---
Date of Service January 15, 2022 Assessment & Plan (1) Weakness: (2) Nausea: (3) Diarrhea: (4) Abdominal pain: (5) Chronic atrial fibrillation: (6) HTN (hypertension): (7) Rheumatoid arthritis: (8) Chronic vertigo: Plan: Acute diastolic CHF Pulmonary hypertension Valvular heart disease -CXR:Moderate pulmonary edema. Monitor I's and O's, daily weight, volume status Received IV Lasix>> PO lasix Saturating well on room air Appreciate Cardiology Input PT/OT 2 step:Did not qualify for oxygen Continue Lasix 40mg daily Plan to discharge home today Suspected UTI Blood Cx: Negative to date Urine Culture: Negative Empirically received Rocephin for [address] abdomen Imaging studies suggestive of possible splenic infarct Currently asymptomatic Consider further evaluation if needed Conservative management Hypertension stable Continue lisinopril, metoprolol Atrial fibrillation Continue metoprolol for rate control Medication compliance issues with Coumadin Transitioned to Apixaban for anticoagulation Chronic anemia Hb at baseline Rheumatoid arthritis on chronic steroid New onset DM II HbA1C: 6.7, January 2022 Continue insulin for now Acute on chronic diarrhea Stool studies Negative Monitor Hypomagnesemia Replace electrodes as needed Chronic vertigo Possible functional disability PT/OT eval DVT Px: Apixaban Code Status Full code Admission and Anticipated Discharge Date Admission Date: January 11, 2022 Subjective Patient is seen and examined at bedside Doing well today Denies chest pain, dyspnea, dizziness, nausea, abd pain 2 step: Did not qualify for oxygen Review of Systems Review of Systems: All systems reviewed & are unremarkable except as noted in Subjective Physical Exam Physical Exam: Physical Exam: Vitals signs as noted above General Appearance:Obese, no apparent distress Head: normocephalic, Atraumatic Eyes: normal inspection, EOMI Neck: supple, Trachea midline Respiratory/Chest: Normal breath sounds, CTA, No accessory muscle use Cardiovascular: S1, S2, No murmur Abdomen/GI:Soft, non tender, Bowel sounds present Extremities/Musculoskeletal:normal inspection, no edema Neurologic/Psych:AAOX3, grossly no focal neurological deficits Skin: normal color, warm Results & Data Results & Data ([facility]) Vital Signs (Past 12 Hours) Vital Signs Temp Pulse Pulse Pulse Pulse Pulse Resp 01/15/22 09:00 77 01/15/22 07:37 116 H 126 H 90 01/15/22 07:06 36.9 C 79 19 01/15/22 03:41 36.5 C 81 18 01/14/22 22:54 36.6 C 75 20 01/14/22 22:18 75 Resp Resp Resp BP Pulse Ox Pulse Ox Pulse Ox 01/15/22 09:00 01/15/22 07:37 20 16 16 93 94 01/15/22 07:06 141/81 H 92 01/15/22 03:41 146/83 H 92 01/14/22 22:54 121/75 90 01/14/22 22:18 Pulse Ox 01/15/22 09:00 01/15/22 07:37 94 01/15/22 07:06 01/15/22 03:41 01/14/22 22:54 01/14/22 22:18 Laboratory Results Short CBC 01/15/22 Range/Units 05:24 WBC 11.57 H (4.8-10.8) K/uL Hgb 10.8 L (12.0-16.0) g/dL Hct 32.6 L (37-47) % Plt Count 303 (130-400) K/uL BMP 01/15/22 05:24 Sodium 137 Potassium 3.9 Chloride 99 Carbon Dioxide 30 BUN 37 H Creatinine 0.86 Glucose 116 H Calcium 9.2
--- NOTE | 2022-01-15 10:50 | Discharge Summary ---
Date of Service January 15, 2022 Admission HPI Per Admitting Provider Patient is 86-year-old female with PMH chronic atrial fibrillation on Coumadin, moderate mitral regurgitation, mild aortic insufficiency, HTN, HLD, RA on chronic prednisone, gout, chronic vertigo, GERD presented to ER with complaint of weakness. History obtained from patient and patient's daughter, and outpatient review. Reports patient with chronic dizziness. She reports follows with audiology and ENT in past. She doesn't feel her dizziness is worse than normal. Patient also reports of chronic nausea and chronic diarrhea. She reports often times if she eats she will have episodes of diarrhea. Worse with eating out. Patient reports that she did not have episode of diarrhea today however patient's daughter states that patient had 2 episodes of fecal incontinence today requiring change of clothes. Patient reports past week her stool has been yellow in color previously brown color stool. Denies any melena or hematochezia. Patient reports that PCP started her on Zofran and Carafate last week for her nausea. Patient does not believe that she had any history of endoscopy or followed with any GI providers in the past. Denies vomiting. She reports past week has had intermittent pain to left upper quadrant that occurs when she is sitting. Patient reports pain comes and goes away quickly, is nonradiating. Patient reports a couple of nights ago woke up to her wetting the bed. Denies dysuria, hematuria, known fever, chills. Denies recent fall, syncope, palpitations. Daughter reports that she brought patient to ER today because patient has been having difficulty ambulating and today was unable to ambulate with her walker secondary to weakness. Patient's daughter also reports the past week she has noted patient to be, more forgetful. She reports yesterday she turned on water and bathtub and forgot and flooded the bathroom. She states this is very atypical for patient. Denies SHAIKH, vision changes, neck pain, CP, SOB, orthopnea, palpitations, cough, sore throat, choking, otalgia, rhinorrhea, paresthesias, extremity edema, rashes. Admission Exam Per Admitting Provider Physical Exam Physical Exam: General: no distress, obese Head: normocephalic, atraumatic Eyes: PERRL, EOM's intact, conjunctiva non-injected, anicteric ENT: hard of hearing, normal inspection external ears, nose, mucous membranes mildly dry Neck: supple, trachea midline,r Lungs: clear, no respiratory distress, no wheezing/rhonchi/rales CV: irregularly irregular, no murmur, no pretibial edema Abd: normal BS, soft, non-tender to palpation Ext: no cyanosis, no calf tenderness Neuro: Alert, oriented to person, place, month, no focal deficits noted, normal affect Skin: warm, dry Principal Diagnosis Acute diastolic CHF Discharge Data Allergies Allergy/AdvReac Type Severity Reaction Status Date / Time No Known Drug Allergies Allergy Unknown . Verified 01/11/22 19:50 nickel AdvReac Unknown PAIN WITH Verified 01/11/22 19:50 HARDWARE IN ANKLE --> REMOVED Consultations 01/11/22 19:36 ED Decision to Admit Stat 01/13/22 08:06 Consult Cardiology Routine Ordered Studies 01/11/22 16:24 CT abd pelvis IV con only Stat Diabetes Follow up Diabetes Follow-up Needed for Newly Diagnosed Diabetes Hospital Course (1) Weakness: (2) Nausea: (3) Diarrhea: (4) Abdominal pain: (5) Chronic atrial fibrillation: (6) HTN (hypertension): (7) Rheumatoid arthritis: (8) Chronic vertigo: Acute diastolic CHF Pulmonary hypertension Valvular heart disease -CXR:Moderate pulmonary edema. Monitor I's and O's, daily weight, volume status Received IV Lasix>> PO lasix Saturating well on room air Appreciate Cardiology Input PT/OT 2 step:Did not qualify for oxygen Continue Lasix 40mg daily Plan to discharge home today Suspected UTI Blood Cx: Negative to date Urine Culture: Negative Empirically received Rocephin for [address] abdomen Imaging studies suggestive of possible splenic infarct Currently asymptomatic Consider further evaluation if needed Conservative management Hypertension stable Continue lisinopril, metoprolol Atrial fibrillation Continue metoprolol for rate control Medication compliance issues with Coumadin Transitioned to Apixaban for anticoagulation Chronic anemia Hb at baseline Rheumatoid arthritis on chronic steroid New onset DM II HbA1C: 6.7, January 2022 Continue insulin for now Acute on chronic diarrhea Stool studies Negative Monitor Hypomagnesemia Replace electrodes as needed Chronic vertigo Possible functional disability PT/OT eval DVT Px: Apixaban Code Status Full code Total Time Total Time Spent Total Time Spent (In Minutes): 45 minutes Discharge Plan Discharge Items Patient Disposition: Home - Self-Care Reason For Visit: SOB, COMP UTI Discharge Diagnosis: Acute diastolic CHF Activity: Per Instructions section Exercise/Sports: Gradually increase as tolerated Non-emergency contact: Primary Care Provider and Internal Revenue Service Agent Call non-emergency contact if: you have any medication questions, your symptoms worsen, your pain is concerning for you and you have a fever Follow-up/Referrals: Chilo Marte [Primary Care Provider] - Diet: Carb Consistent or DM2 and Heart Healthy Addtl Attending Provider Instructions: Follow-up with your primary care physician Dr. Marte in 1 week as advised Follow-up with your office administration Dr. Samuel in 3-4 weeks Seek immediate medical attention if your symptoms reoccur or worsen Please take all medications as instructed on discharge list below. Please call if you have any questions or problems. You can reach a [facility] hospitalist on duty at [facility] 24 hours a day by calling [phone] Call your Primary Care doctor if any of the following symptoms or problems start or get worse: * Shortness of breath or difficulty breathing * Wake up at night short of breath * Chest pain * Cough * Swelling of your hands, feet, or legs * More fatigued or tired with your normal activity * Palpitations - sudden fast heart beats WEIGHT * Weigh yourself every morning after using the bathroom. * Use the same scale. * Wear the same amount of clothing. * Write your weight down on a chart. * Call your Primary Care doctor if you gain more than 2-3 pounds in 1-2 days. MEDICATIONS * Use this discharge instruction sheet for medication instructions. * Take your medications at the time your doctor ordered. * Do not skip a dose of your medicines. * If you miss a dose of medicine, take it as soon as possible, but DO NOT DOUBLE A DOSE. * Read your medicine information when you get home. * Know all of the side effects of your medicine. If in doubt, ask your pharmacist * Call your Primary Care doctor's office if you have any side effects. * Be sure all of your doctors know what medicine and herbs you take (including cold, flu, and herbal medicine). Take the following with you to your follow-up doctor appointments: * Weight Chart * Medication List * List of questions Do not drink excessive alcohol, beer or wine. Pending Studies at Discharge: No Stand-Alone Forms: [facility], Smoking Cessation Medications and DC Order Prescriptions: New Eliquis 5 mg Tablet 5 mg PO BID Qty: 60 RF: 1 furosemide 40 mg Tablet 40 mg PO QAM Qty: 30 RF: 0 Continued allopurinol 100 mg tablet 100 mg PO BID RF: 0 omeprazole 40 mg capsule,delayed release(DR/EC) 40 mg PO QAM RF: 0 metoprolol tartrate 25 mg tablet 25 mg PO BID RF: 0 ondansetron HCl 8 mg tablet 8 mg PO Q8 PRN (Reason: Nausea) RF: 0 sucralfate 1 gram tablet 1 g PO AC RF: 0 atorvastatin 40 mg tablet 40 mg PO DAILY RF: 0 colchicine 0.6 mg tablet 0.6 mg PO UD RF: 0 meclizine 25 mg tablet 25 mg PO TID PRN (Reason: dizziness) Qty: 14 RF: 0 prednisone 5 mg Tablet 5 mg PO QAM RF: 0 cholecalciferol (vitamin D3) [Vitamin D3] 25 mcg (1,000 unit) Tablet 25 mcg PO QAM RF: 0 magnesium oxide 400 mg magnesium Capsule 400 mg PO BID RF: 0 lisinopril 10 mg Tablet 10 mg PO QAM RF: 0 amoxicillin 500 mg Capsule 2,000 mg PO UD PRN (Reason: PRE DENTAL) RF: 0 acetaminophen [Tylenol] 325 mg capsule 650 mg PO Q6H PRN (Reason: fever or pain) Qty: 60 RF: 0 Discontinued warfarin 2 mg tablet 2 mg PO DAILY Qty: 90 RF: 3 Discharge Orders: Discharge Order (Routine); Ordered 01/15/22 Ordered By: Josue Milton/Other Patient Handouts: 5 Steps for Eating Healthier, Type 2 Diabetes Admission Data Admit Date/Time: 01/11/22 22:51 Attending Provider: Josue Harden Admit Provider: Tad Barragan Primary Care Provider: Chilo Marte Other Providers: Tad Barragan ; Chilo Samuel
== END 2022-01-15 12:39 | disposition home health service (06) | DRG 291 ==
LOC: ED 16:09 → 2N 22:51

== ENCOUNTER 2022-01-24 09:34 | Inpatient (IN) ==
--- NOTE | 2022-01-24 10:03 | Emergency Department Note ---
History of Present Illness General Chief complaint: Confusion Time Seen by Provider: 01/24/22 09:38 Source: patient Mode of arrival: ambulatory Limitations: altered mental status History of Present Illness Provider complaint: dizziness, poor appetite Onset (ago): unknown Associated symptoms: + diaphoresis, + headaches, + loss of appetite and + malaise; no fever/chills, no nausea/vomiting or no shortness of breath Treatments prior to arrival: none This is an 86-year-old female brought in by EMS due to concern for confusion. A home health nurse had come to the patient's house as had been arranged following her recent discharge, and thought she was altered. Patient on EMS assessment seem to be confused as to date and chronology of events, however knew where she was and knew her name. Patient did know she was recently hospitalized although was confused as to why. On arrival here patient states she has been experiencing increased dizziness recently although states she has a history of dizziness. She states she had night sweats recently, as well as decreased appetite. Patient does not know if any of her medications were changed. Pt seen during a time of high acuity and national emergency pandemic while wearing PPE. Home Medications Medication Instructions Recorded Confirmed Type allopurinol 100 mg tablet 100 mg PO BID 01/15/19 01/24/22 History omeprazole 40 mg capsule,delayed 40 mg PO QAM 01/15/19 01/24/22 History release metoprolol tartrate 25 mg tablet 25 mg PO BID tab 06/05/19 01/24/22 History cholecalciferol (vitamin D3) 25 25 mcg PO QAM 10/06/21 01/24/22 History mcg (1,000 unit) tablet (Vitamin D3) magnesium oxide 400 mg PO BID 10/06/21 01/24/22 History prednisone 5 mg tablet 5 mg PO QAM 10/06/21 01/24/22 History amoxicillin 500 mg capsule 2,000 mg PO UD PRN 12/13/21 01/24/22 History lisinopril 10 mg tablet 10 mg PO QAM 12/13/21 01/24/22 History acetaminophen 325 mg capsule 650 mg PO Q6H PRN #60 cap 12/16/21 01/24/22 Rx (Tylenol) atorvastatin 40 mg tablet 40 mg PO DAILY 01/09/22 01/24/22 History colchicine 0.6 mg tablet 0.6 mg PO DAILY 01/09/22 01/24/22 History meclizine 25 mg tablet 25 mg PO TID PRN #14 tab 01/09/22 01/24/22 Rx ondansetron HCl 8 mg tablet 8 mg PO Q8 PRN 01/09/22 01/24/22 History sucralfate 1 gram tablet 1 g PO AC 01/09/22 01/24/22 History apixaban 5 mg tablet (Eliquis) 5 mg PO BID #60 tab 01/15/22 01/24/22 Rx furosemide 40 mg tablet 40 mg PO QAM #30 tab 01/15/22 01/24/22 Rx Allergies Allergy/AdvReac Type Severity Reaction Status Date / Time No Known Drug Allergies Allergy Unknown . 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 Osteoarthritis Rheumatoid arthritis Splenic infarct Surgical History H/O wisdom tooth extraction History of cardiac cath NO STENTS, REMOTE HX History of cataract surgery RT/LEFT History of cholecystectomy History of colonoscopy History of conization of cervix History of esophagogastroduodenoscopy (EGD) History of open reduction and internal fixation (ORIF) procedure LEFT ANKLE (+HARDWARE REMOVED) History of total knee replacement LEFT Family History Father Family history of diabetes mellitus Mother Family history of diabetes mellitus Sister Family history of diabetes mellitus Other Heart disease No family history of adverse response to anesthesia Social History Smoking Status: Never smoker Second Hand Exposure: No; Hx Alcohol Use: No Hx Substance Use: No Preferred Language: Algerian Communication Ability: Effective Communication Ability Comment: hard of hearing Bag Liner Required: No Beliefs That Will Affect Care: None marital status: / Current Living Situation: Alone Current Living Situation Comment: [employer] current occupational status: retired Other Information That Helps Us Care for You: No Feels Safe at Home: Yes Safety Concerns: Feels Safe At This Time Assistive Devices: Glasses and Walker Review of Systems A total of 10 systems reviewed and were otherwise negative All systems reviewed & are unremarkable except as noted in HPI & below Physical Exam Vital Signs Vital Signs - 24 hr 01/24/22 09:24 01/24/22 09:42 01/24/22 11:24 Temperature 36.5 C Temperature Source Oral Pulse Rate 68 Pulse Rate [Right Finger] 75 71 Pulse Rhythm [Right Finger] Regular Regular Pulse Strength [Right Finger] Normal Normal Respiratory Rate 18 18 20 Respiratory Effort / Characteristics Non-Labored Spontaneous Non-Labored Non-Labored Respiratory Depth Normal Normal Normal Respiratory Pattern Regular Regular Blood Pressure 105/57 L Blood Pressure [Right Arm] 109/55 L 94/54 L Blood Pressure Mean 73 Blood Pressure Mean [Right Arm] 73 67 Blood Pressure Position [Right Arm] Sitting Sitting Pulse Oximetry 94 96 Oxygen Delivery Method Room Air Room Air Sepsis Recent Fever Within 48 Hours No Sepsis New/Unexplained Change in Mental Status No Sepsis Action Taken by Nursing No Action Required GENERAL: alert, well appearing, well nourished, no distress, non-toxic EYE EXAM: normal conjunctiva, PERRL and EOM's grossly intact OROPHARYNX: no exudate, no erythema, lips, buccal mucosa, and tongue normal and mucous membranes are moist NECK: supple, no nuchal rigidity, no adenopathy, non-tender LUNGS: Clear to auscultation. Normal chest wall mechanics, no w/r/r HEART: no murmurs, S1 normal and S2 normal ABDOMEN: abdomen soft, non-tender, normo-active bowel sounds, no masses, no rebound or guarding. BACK: Back is symmetrical on inspection and there is no deformity, no midline tenderness, no CVA tenderness. SKIN: no rashes and no bruising UPPER EXTREMITIES: upper extremities are grossly normal. FROM, nml pulses b/l. LOWER EXTREMITIES: No pitting edema. FROM, nml pulses b/l. NEURO EXAM: Oriented to place and self, confused to date/time and chronology of events, cranial nerves II-XII grossly intact, normal speech, no gross weakness of arms, no gross weakness of legs. Gross sensation intact. Course Administered Medications Allopurinol (Allopurinol 100 Mg Tab) 100 mg PO DAILY EIVE Stop: 02/24/22 08:59 Last Admin: 01/25/22 08:09 Dose: 100 mg Documented by: [id number] Apixaban (Apixaban 2.5 Mg Tab) 2.5 mg PO BID EVIE Stop: 02/23/22 20:59 Last Admin: 01/25/22 08:09 Dose: 2.5 mg Documented by: [id number] Admin: 01/24/22 20:40 Dose: 2.5 mg Documented by: [id number] Atorvastatin Calcium (Atorvastatin 40 Mg Tab) 40 mg PO DAILY EVIE Stop: 02/24/22 08:59 Last Admin: 01/25/22 08:09 Dose: 40 mg Documented by: [id number] Sodium Chloride (Nss 1000ml) 1,000 mls @ 80 mls/hr IV .[id number] EVIE Stop: 02/23/22 17:36 Last Infusion: 01/25/22 14:18 Dose: 80 mls/hr Documented by: [id number] Infusion: 01/25/22 13:16 Dose: 0 mls/hr Documented by: [id number] Admin: 01/25/22 06:26 Dose: 80 mls/hr Documented by: [id number] Infusion: 01/25/22 06:21 Dose: 80 mls/hr Documented by: [id number] Admin: 01/24/22 17:51 Dose: 80 mls/hr Documented by: [id number] Magnesium Oxide (Magnesium Oxide 400 Mg Tab) 400 mg PO BID EVIE Stop: 02/23/22 20:59 Last Admin: 01/25/22 08:09 Dose: 400 mg Documented by: [id number] Admin: 01/24/22 20:40 Dose: 400 mg Documented by: [id number] Metoprolol Tartrate (Metoprolol Tartrate 25 Mg Tab) 25 mg PO BID EVIE Stop: 02/23/22 20:59 Last Admin: 01/25/22 08:09 Dose: 25 mg Documented by: [id number] Admin: 01/24/22 20:40 Dose: 25 mg Documented by: [id number] Pantoprazole Sodium (Pantoprazole 40 Mg Tab) 40 mg PO QAM EVIE Stop: 02/24/22 08:59 Last Admin: 01/25/22 08:09 Dose: 40 mg Documented by: [id number] Prednisone (Prednisone 5 Mg Tab) 5 mg PO QAM EVIE Stop: 02/24/22 08:59 Last Admin: 01/25/22 08:09 Dose: 5 mg Documented by: [id number] Discontinued Medications Lactated Ringer's (Lr) 1,000 mls @ 80 mls/hr IV .[id number] EVIE Stop: 02/23/22 11:29 Last Infusion: 01/24/22 18:03 Dose: 0 mls/hr Documented by: [id number] Admin: 01/24/22 12:56 Dose: 80 mls/hr Documented by: [id number] Lactated Ringer's (Lr) 500 mls @ 999 mls/hr IV .[id number] ONE Stop: 01/24/22 12:00 Last Infusion: 01/24/22 12:13 Dose: 0 mls/hr Documented by: [id number] Admin: 01/24/22 11:42 Dose: 999 mls/hr Documented by: [id number] Magnesium Sulfate/Dextrose (Magnesium Sulfate / D5w) 1 gm in 100 mls @ 50 mls/hr IV Q2H EVIE Stop: 01/24/22 18:29 Last Infusion: 01/24/22 17:30 Dose: 0 mls/hr Documented by: [id number] Admin: 01/24/22 16:16 Dose: 50 mls/hr Documented by: [id number] Infusion: 01/24/22 16:16 Dose: 50 mls/hr Documented by: [id number] Admin: 01/24/22 14:20 Dose: 50 mls/hr Documented by: [id number] Medical Decision Making Differential Diagnosis Differential diagnosis includes etiologies such as benign positional vertigo, dehydration, hypovolemia, anemia, tumor, infection, hypoglycemia, electrolyte abnormalities, cardiac sources, intracerebral event, toxicologic, neurologic, as well as others were entertained. Medical Records Attestation: I reviewed the patient's medical records. Home Medications Current Medication List: was personally reviewed by me Laboratory Data Attestation: I reviewed the patient's lab results. Result diagrams: 01/25/22 06:57 01/25/22 06:57 Lab Results 01/24/22 01/24/22 01/24/22 Range/Units 10:40 10:40 10:40 WBC 12.36 H (4.8-10.8) K/uL RBC 3.39 L (4.2-5.4) M/uL Hgb 10.4 L (12.0-16.0) g/dL Hct 31.4 L (37-47) % MCV 92.6 (80-100) fL MCH 30.7 (25-34) pg MCHC 33.1 (32-36) g/dL RDW Std Deviation 44.9 (36.4-46.3) fL RDW Coeff of Yue 13.4 (11.5-14.5) % Plt Count 314 (130-400) K/uL MPV 8.8 (7.4-10.4) fL Immature Gran % (Auto) 0.6 % Neut % (Auto) 79.1 % Lymph % (Auto) 9.2 % Denali % (Auto) 5.6 % Eos % (Auto) 5.3 % Baso % (Auto) 0.2 % Neut # (Auto) 9.79 H (1.4-6.5) K/uL Lymph # (Auto) 1.14 L (1.2-3.4) K/uL Denali # (Auto) 0.69 H (0.11-0.59) K/uL Eos # (Auto) 0.65 H (0-0.5) K/uL Baso # (Auto) 0.02 (0-0.2) K/uL Immature Gran # (Auto) 0.07 H (0.00-0.02) K/uL Sodium 135 L (136-145) mmol/L Potassium 4.8 (3.5-5.1) mmol/L Chloride 98 (98-107) mmol/L Carbon Dioxide 27 (21-32) mmol/L Anion Gap 10 (3-11) BUN 81 H (6-23) mg/dl Creatinine 3.89 H (0.6-1.2) mg/dl Est Cr Clr Drug Dosing 8.0 ml/min Est GFR ( Amer) 11.3 ml/min Est GFR (Non-Af Amer) 9.7 ml/min BUN/Creatinine Ratio 20.8 H (10-20) Glucose 161 H (70-99(Fasting)) mg/dl Calcium 9.1 (8.5-10.1) mg/dl Magnesium 1.4 L (1.7-2.4) mg/dl Total Bilirubin 0.6 (0.2-1.0) mg/dl AST 8 L (13-39) U/L ALT 6 L (7-52) U/L Alkaline Phosphatase 52 (34-104) U/L Troponin I < 0.03 (0-0.04) ng/ml Total Protein 6.6 (6.0-8.3) gm/dl Albumin 3.0 L (3.4-5.0) gm/dl Globulin 3.6 (2.5-4.0) gm/dl Albumin/Globulin Ratio 0.8 L (0.9-2) Lipase 26 (11-82) U/L TSH 2.272 (0.300-4.500) uIu/ml Urine Color Urine Appearance (Clear) Urine pH (4.5-7.5) Ur Specific Gibbon (1.000-1.030) Urine Protein (Negative) Urine Glucose (UA) (Negative) Urine Ketones (Negative) Urine Blood (Negative) Urine Nitrite (Negative) Urine Bilirubin (Negative) Urine Urobilinogen (Negative) Ur Leukocyte Esterase (Negative) Urine WBC (Auto) (0-5) /hpf Urine RBC (Auto) (0-4) /hpf U Hyaline Cast (Auto) (0-5) /lpf U Epithel Cells (Auto) (0-5) /lpf Urine Bacteria (Auto) (Negative) SARS-CoV-2, RNA, NAAT (NEGATIVE) 01/24/22 01/24/22 Range/Units 10:53 13:00 WBC (4.8-10.8) K/uL RBC (4.2-5.4) M/uL Hgb (12.0-16.0) g/dL Hct (37-47) % MCV (80-100) fL MCH (25-34) pg MCHC (32-36) g/dL RDW Std Deviation (36.4-46.3) fL RDW Coeff of Yue (11.5-14.5) % Plt Count (130-400) K/uL MPV (7.4-10.4) fL Immature Gran % (Auto) % Neut % (Auto) % Lymph % (Auto) % Den[place] % (Auto) % Eos % (Auto) % Baso % (Auto) % Neut # (Auto) (1.4-6.5) K/uL Lymph # (Auto) (1.2-3.4) K/uL Denali # (Auto) (0.11-0.59) K/uL Eos # (Auto) (0-0.5) K/uL Baso # (Auto) (0-0.2) K/uL Immature Gran # (Auto) (0.00-0.02) K/uL Sodium (136-145) mmol/L Potassium (3.5-5.1) mmol/L Chloride (98-107) mmol/L Carbon Dioxide (21-32) mmol/L Anion Gap (3-11) BUN (6-23) mg/dl Creatinine (0.6-1.2) mg/dl Est Cr Clr Drug Dosing ml/min Est GFR ( Amer) ml/min Est GFR (Non-Af Amer) ml/min BUN/Creatinine Ratio (10-20) Glucose (70-99(Fasting)) mg/dl Calcium (8.5-10.1) mg/dl Magnesium (1.7-2.4) mg/dl Total Bilirubin (0.2-1.0) mg/dl AST (13-39) U/L ALT (7-52) U/L Alkaline Phosphatase (34-104) U/L Troponin I (0-0.04) ng/ml Total Protein (6.0-8.3) gm/dl Albumin (3.4-5.0) gm/dl Globulin (2.5-4.0) gm/dl Albumin/Globulin Ratio (0.9-2) Lipase (11-82) U/L TSH (0.300-4.500) uIu/ml Urine Color Yellow Urine Appearance Clear (Clear) Urine pH 5.0 (4.5-7.5) Ur Specific Gibbon 1.010 (1.000-1.030) Urine Protein Negative (Negative) Urine Glucose (UA) Negative (Negative) Urine Ketones Negative (Negative) Urine Blood 1+ H (Negative) Urine Nitrite Negative (Negative) Urine Bilirubin Negative (Negative) Urine Urobilinogen Negative (Negative) Ur Leukocyte Esterase Negative (Negative) Urine WBC (Auto) 1-5 (0-5) /hpf Urine RBC (Auto) 0-4 (0-4) /hpf U Hyaline Cast (Auto) 1-5 (0-5) /lpf U Epithel Cells (Auto) 20-30 H (0-5) /lpf Urine Bacteria (Auto) Negative (Negative) SARS-CoV-2, RNA, NAAT NEGATIVE (NEGATIVE) MDM Narrative This is an elderly female who presents via EMS due to confusion. VS stable. Patient admits to dizziness and generalized weakness and decreased oral intake. On review of EMR, patient with recent admission for sob and given lasix. CT head unremarkable and labs revealed HA. Patient was given gentle IVF rehydration. Afebrile. UA reassuring, pt did have recent treatment for UTI in addition. CT during admission of abd/pelvis did not show any evidence of obstructive pathology at kidneys. CAse discussed with hospitalist for additional evaluation and treatment. An order was placed for continuous cardiac monitoring. The monitor shows a rate of _92_ with _normal sinus_ rhythm. Impression & Plan AMS (altered mental status), HA (acute kidney injury), Generalized weakness Discharge Plan Visit Data Chief Complaint: Confusion ED Provider: Fatemeh Roper Discharge Problem: AMS (altered mental status), HA (acute kidney injury), Generalized weakness Patient Disposition: Admitted As Inpatient Discharge Instructions Interventions: ED Discharge Assessment Last Done: 01/24/22 16:04 Discharge Problem: AMS (altered mental status) Qualifiers: Altered mental status type: unspecified Qualified Code(s): R41.82 - Altered mental status, unspecified
--- NOTE | 2022-01-24 10:51 | Electrocardiogram Report ---
Test Reason : Blood Pressure : / mmHG Vent. Rate : 067 BPM Atrial Rate : 073 BPM P-R Int : 000 ms QRS Dur : 078 ms QT Int : 408 ms P-R-T Axes : 000 003 007 degrees QTc Int : 431 ms Poor data quality, interpretation may be adversely affected Atrial fibrillation Abnormal ECG When compared with ECG of 11-JAN-2022 19:29, No significant change was found Confirmed by Joe Steele ([id number]) on 01/24/2022 10:51:00 AM Referred By: REFERRED SELF Confirmed By:Hudson Steele
[2022-01-24 11:01] LABS: Basophils # (auto) 0.02 K/uL (0-0.2); Basophils % (auto) 0.2 %; Eosinophils # (auto) 0.65 K/uL (0-0.5); Eosinophils % (auto) 5.3 %; Hematocrit (blood only) 31.4 % (37-47); Hemoglobin 10.4 g/dL (12.0-16.0); Immature Granulocytes # (auto) 0.07 K/uL (0.00-0.02); Immature Granulocytes % (auto) 0.6 %; Lymphocytes # (auto) 1.14 K/uL (1.2-3.4); Lymphocytes % (auto) 9.2 %; Mean Corpuscular Hemoglobin 30.7 pg (25-34); Mean Corpuscular Hgb Conc 33.1 g/dL (32-36); Mean Corpuscular Volume 92.6 fL (80-100); Mean Platelet Volume 8.8 fL (7.4-10.4); Monocytes # (auto) 0.69 K/uL (0.11-0.59); Monocytes % (auto) 5.6 %; Neutrophils # (auto) 9.79 K/uL (1.4-6.5); Neutrophils % (auto) 79.1 %; Platelet Count 314 K/uL (130-400); RDW Coefficient of Variation 13.4 % (11.5-14.5); RDW Standard Deviation 44.9 fL (36.4-46.3); Red Blood Count 3.39 M/uL (4.2-5.4); White Blood Count 12.36 K/uL (4.8-10.8)
[2022-01-24 11:04] LABS: Appearance Urine Clear (Clear); Bacteria Urine Automated Negative (Negative); Bilirubin Urine Negative (Negative); Blood Urine 1+ (Negative); Color Urine Yellow; Epithelial Cell Urine Auto 20-30 /lpf (0-5); Glucose Urine UA Negative (Negative); Ketones Urine Negative (Negative); Leukocyte Esterase Urine Negative (Negative); Nitrite Urine Negative (Negative); Protein Urine Negative (Negative); RBC Urine Automated 0-4 /hpf (0-4); Urobilinogen Urine Negative (Negative)
[2022-01-24 11:22] LABS: Alanine Aminotransferase 6 U/L (7-52); Albumin Globulin Ratio 0.8 (0.9-2); Alkaline Phosphatase 52 U/L (34-104); Anion Gap 10 (3-11); Aspartate Aminotransferase 8 U/L (13-39); BUN Creatinine Ratio 20.8 (10-20); Bilirubin,Total 0.6 mg/dl (0.2-1.0); Blood Urea Nitrogen 81 mg/dl (6-23); Calcium 9.1 mg/dl (8.5-10.1); Carbon Dioxide 27 mmol/L (21-32); Chloride 98 mmol/L (98-107); Est GFR (African American) 11.3 ml/min; Est GFR (Non-African American) 9.7 ml/min; Globulin 3.6 gm/dl (2.5-4.0); Glucose 161 mg/dl (70-99(Fasting)); Lipase 26 U/L (11-82); Magnesium 1.4 mg/dl (1.7-2.4); Potassium 4.8 mmol/L (3.5-5.1); Sodium 135 mmol/L (136-145); Total Protein 6.6 gm/dl (6.0-8.3)
[2022-01-24 11:23] LABS: Troponin I < 0.03 ng/ml (0-0.04)
[2022-01-24] MEDS ORDERED: LACTATED RINGER'S 1,000 ML IV SCH (11:30)
[2022-01-24] MEDS ORDERED: LACTATED RINGER'S 500 ML IV ONE (11:30)
--- NOTE | 2022-01-24 12:06 | CT Scan Report ---
CT SCAN OF THE BRAIN WITHOUT IV CONTRAST CLINICAL HISTORY: Nausea and dizziness. Headache. COMPARISON STUDY: CT of the brain dated 01/09/2022. TECHNIQUE: Unenhanced axial CT scan of the brain is performed from the vertex to the skull base. A do se lowering technique was utilized adhering to the principles of ALARA. CT DOSE: 537.48 mGy.cm FINDINGS: Brain parenchyma: There are age-related involutional changes noting mild subcortical and periventric ular microangiopathic change. There is no hemorrhage, mass effect, or evidence of acute territorial i schemia by CT criteria. A small chronic lacunar infarct is noted in the right cerebellar hemisphere. Chatterjee-white matter differentiation is preserved. No extra-axial fluid collection is seen. Ventricles, sulci, cisterns: Prominent secondary to involutional change. Intracranial vasculature: There is atherosclerotic calcification of the cavernous carotid and vertebr al arteries. Calvarium: Unremarkable. Sinuses and mastoids: The visualized paranasal sinuses are clear. The mastoid air cells are well pneu matized. Orbits: The bony orbits are grossly intact. There are bilateral ocular lens implants. IMPRESSION: There is no hemorrhage, mass effect, or evidence of acute territorial ischemia by CT kaident jose. ACT 112: Negative or not required by law. Electronically signed by: Willam Ham M.D. 01/24/2022 12:04 PM
--- NOTE | 2022-01-24 14:16 | History & Physical Report ---
Date of Service January 24, 2022 Assessment & Plan (1) HA (acute kidney injury): Plan: Admit to [facility] with telemetry Patient presenting from home with reports of confusion and generalized weakness In the ED, labs show creatinine 3.89 (baseline ~ 0.9) Patient recently admitted to [facility] and was started on Lasix for diastolic CHF HA likely due to recent initiation of Lasix (possible medication mismanagement at home) in combination with lisinopril and poor p.o. intake Hold Lasix and lisinopril, gentle IVF Follow renal functions, low threshold for nephrology consult (2) Confusion: Plan: Daughter states that she noted an abrupt change in her mother's mental status about 2 weeks ago. States that her mother was able to function independently in the home and was able to manage her medications. Over the past 2 weeks, she notes increased confusion and forgetfulness and difficulty managing her medications. Brain MRI Underlying dementia may be contributing PT/OT, may need placement -patient and daughter agreeable (3) Chronic atrial fibrillation: Plan: Recently changed from warfarin to apixaban due to compliance issues Due to HA, reduce apixaban dosing to 2.5 mg BID (4) (HFpEF) heart failure with preserved ejection fraction: Plan: w/ valvular disease Holding Lasix due to HA (5) Hypomagnesemia: Plan: MG +1.4, replace, follow electrolytes (6) Hx of gout: Plan: Hold colchicine and reduce allopurinol dosing due to HA (7) Rheumatoid arthritis: Plan: On chronic prednisone, continue (8) HTN (hypertension): Plan: BP currently borderline low, likely due to hypovolemia Holding lisinopril (9) GERD (gastroesophageal reflux disease): Plan: Continue PPI, hold sucralfate due to HA (10) DVT prophylaxis: Plan: On apixaban History of Present Illness Chief Complaint: Confusion Primary Care Provider: Chilo Marte 86-year-old female with PMH chronic atrial fibrillation on Eliquis, moderate mitral regurgitation, mild aortic insufficiency, HTN, HLD, RA on chronic prednisone, gout, chronic vertigo, GERD, and other problems listed below who presents to the ED for evaluation of confusion and generalized weakness. Patient recently admitted to [facility] 01/11 through 01/15 for acute diastolic CHF. Patient received IV Lasix while admitted and was transitioned to Lasix 40 mg p.o. daily discharge. Due to compliance issues, patient was changed from warfarin to apixaban. Patient's daughter is the bedside who provides some history. Daughter states that she noted an abrupt change in her mother's mental status about 2 weeks ago. States that her mother was able to function independently in the home and was able to manage her medications. Over the past 2 weeks, she notes increased confusion and forgetfulness and difficulty managing her medications. Home health came to the patient's home today and noted the patient was confused and was very unsteady on her feet. EMS was called and patient was brought to the ED for further evaluation. Patient reports a poor appetite and some intermittent nausea which has been chronic. She states that she drinks water and diet drinks throughout the day. Patient denies chest pain or shortness of breath. She does have some intermittent lightheadedness and dizziness however no syncopal event. Denies difficulty speaking, understanding, unilateral weakness, numbness, tingling. Struggles with chronic nausea and diarrhea at times, no abdominal pain or vomiting. Denies any other recent illnesses, fevers, chills. No urinary symptoms. In the ED, labs show creatinine 3.89 (baseline ~ 0.9). BP borderline low which improved after IVF. Allergies Allergy/AdvReac Type Severity Reaction Status Date / Time No Known Drug Allergies Allergy Unknown . Verified 01/11/22 19:50 nickel AdvReac Unknown PAIN WITH Verified 01/11/22 19:50 HARDWARE IN ANKLE --> REMOVED Home Medications Medication Instructions Recorded Confirmed Type allopurinol 100 mg tablet 100 mg PO BID 01/15/19 01/24/22 History omeprazole 40 mg capsule,delayed 40 mg PO QAM 01/15/19 01/24/22 History release metoprolol tartrate 25 mg tablet 25 mg PO BID tab 06/05/19 01/24/22 History cholecalciferol (vitamin D3) 25 25 mcg PO QAM 10/06/21 01/24/22 History mcg (1,000 unit) tablet (Vitamin D3) magnesium oxide 400 mg PO BID 10/06/21 01/24/22 History prednisone 5 mg tablet 5 mg PO QAM 10/06/21 01/24/22 History amoxicillin 500 mg capsule 2,000 mg PO UD PRN 12/13/21 01/24/22 History lisinopril 10 mg tablet 10 mg PO QAM 12/13/21 01/24/22 History acetaminophen 325 mg capsule 650 mg PO Q6H PRN #60 cap 12/16/21 01/24/22 Rx (Tylenol) atorvastatin 40 mg tablet 40 mg PO DAILY 01/09/22 01/24/22 History colchicine 0.6 mg tablet 0.6 mg PO DAILY 01/09/22 01/24/22 History meclizine 25 mg tablet 25 mg PO TID PRN #14 tab 01/09/22 01/24/22 Rx ondansetron HCl 8 mg tablet 8 mg PO Q8 PRN 01/09/22 01/24/22 History sucralfate 1 gram tablet 1 g PO AC 01/09/22 01/24/22 History apixaban 5 mg tablet (Eliquis) 5 mg PO BID #60 tab 01/15/22 01/24/22 Rx furosemide 40 mg tablet 40 mg PO QAM #30 tab 01/15/22 01/24/22 Rx Past Med/Surg History Medical History (HFpEF) heart failure with preserved ejection fraction Chronic atrial fibrillation GERD (gastroesophageal reflux disease) Hemorrhage following tonsillectomy and adenoidectomy History of anxiety History of cardioversion X 1 "OVER 30 YEARS AGO" History of IBS History of TMJ disorder HTN (hypertension) Hx of gout Hx of migraines Hx of vertigo Hyperlipidemia 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 Osteoarthritis Rheumatoid arthritis Splenic infarct Surgical History H/O wisdom tooth extraction History of cardiac cath NO STENTS, REMOTE HX History of cataract surgery RT/LEFT History of cholecystectomy History of colonoscopy History of conization of cervix History of esophagogastroduodenoscopy (EGD) History of open reduction and internal fixation (ORIF) procedure LEFT ANKLE (+HARDWARE REMOVED) History of total knee replacement LEFT Family History Father Family history of diabetes mellitus Mother Family history of diabetes mellitus Sister Family history of diabetes mellitus Other Heart disease No family history of adverse response to anesthesia Social History Smoking Status: Never smoker Second Hand Exposure: No; Hx Alcohol Use: No Hx Substance Use: No Preferred Language: Wolof Communication Ability: Effective Communication Ability Comment: hard of hearing Manager Ethics Required: No Beliefs That Will Affect Care: None marital status: / Current Living Situation: Alone Current Living Situation Comment: [facility] current occupational status: retired Other Information That Helps Us Care for You: No Feels Safe at Home: Yes Safety Concerns: Feels Safe At This Time Assistive Devices: None Review of Systems Review of Systems: ROS per HPI, all other systems reviewed and negative Physical Exam Constitutional: WD/WN, vitals as above Eyes: PERRL, conjunctivae normal, anicteric sclerae ENMT: external ear and nose normal, oropharynx normal Respiratory: normal respiratory effort, lungs clear to auscultation Cardiovascular: Rate/Rhythm: regular rate and + irregularly irregular Vessels: normal peripheral pulses Extremities: no edema Gastrointestinal (Abdomen): normal bowel sounds, soft, nontender, no hepatosplenomegaly Musculoskeletal: no cyanosis or clubbing, extremities motor strength 5/5 Skin: no rashes, warm and dry Neurologic: PERRL, EOMI, accommodation nl, no face palsy, no dysarthria moves all extremities and awake; no focal motor deficits Motor/Sensory: no pronator drift Cranial Nerves: tongue midline Coordination: normal aarcyt-wk-vuoy test and normal klyy-bh-jzvd test Psychiatric: A+Ox3, euthymic affect Insight: + limited insight Forgetful Results & Data Results & Data ([facility]) Vital Signs (Past 12 Hours) Vital Signs Temp Pulse Pulse Resp BP BP Pulse Ox 01/24/22 13:00 65 20 107/59 L 97 01/24/22 11:24 71 20 94/54 L 01/24/22 09:42 36.5 C 68 18 105/57 L 96 01/24/22 09:24 75 18 109/55 L 94 Laboratory Results Short CBC 01/24/22 Range/Units 10:40 WBC 12.36 H (4.8-10.8) K/uL Hgb 10.4 L (12.0-16.0) g/dL Hct 31.4 L (37-47) % Plt Count 314 (130-400) K/uL BMP 01/24/22 10:40 Sodium 135 L Potassium 4.8 Chloride 98 Carbon Dioxide 27 BUN 81 H Creatinine 3.89 H Glucose 161 H Calcium 9.1 Cardiac Enzymes 01/24/22 Range/Units 10:40 Troponin I < 0.03 (0-0.04) ng/ml Liver Function 01/24/22 Range/Units 10:40 Total Bilirubin 0.6 (0.2-1.0) mg/dl AST 8 L (13-39) U/L ALT 6 L (7-52) U/L Alkaline Phosphatase 52 (34-104) U/L Albumin 3.0 L (3.4-5.0) gm/dl Urine 01/24/22 Range/Units 10:53 Urine Color Yellow Urine Appearance Clear (Clear) Urine pH 5.0 (4.5-7.5) Ur Specific [place] 1.010 (1.000-1.030) Urine Protein Negative (Negative) Urine Glucose (UA) Negative (Negative) Diagnostic Findings Head CT 01/24/22 11:28 CT SCAN OF THE BRAIN WITHOUT IV CONTRAST CLINICAL HISTORY: Nausea and dizziness. Headache. COMPARISON STUDY: CT of the brain dated 01/09/2022. TECHNIQUE: Unenhanced axial CT scan of the brain is performed from the vertex to the skull base. A dose lowering technique was utilized adhering to the principles of ALARA. CT DOSE: 537.48 mGy.cm FINDINGS: Brain parenchyma: There are age-related involutional changes noting mild subcortical and periventricular microangiopathic change. There is no hemorrhage, mass effect, or evidence of acute territorial ischemia by CT criteria. A small chronic lacunar infarct is noted in the right cerebellar hemisphere. Chatterjee-white matter differentiation is preserved. No extra-axial fluid collection is seen. Ventricles, sulci, cisterns: Prominent secondary to involutional change. Intracranial vasculature: There is atherosclerotic calcification of the cavernous carotid and vertebral arteries. Calvarium: Unremarkable. Sinuses and mastoids: The visualized paranasal sinuses are clear. The mastoid air cells are well pneumatized. Orbits: The bony orbits are grossly intact. There are bilateral ocular lens implants. IMPRESSION: There is no hemorrhage, mass effect, or evidence of acute territorial ischemia by CT criteria. ACT 112: Negative or not required by law. Electronically signed by: Willam Ham M.D. 01/24/2022 12:04 PM Code Status & VTE Plan Code Status Patient is a DNR as per my discussion with her. Patient states that her daughter, Bonita, would be her decision maker in the event she were to be unable to. VTE Prophylaxis Plan VTE Prophylaxis will be ordered: No Supervising Physician Co-Signing Physician Notes I have seen and examined the patient and have discussed the case with the provider above. I agree with the assessment and plan as stated. Please see ad chelsea attending addendun note. Kuldeep, DO
[2022-01-24] MEDS: MAGNESIUM SULFATE / D5W 1 GM/100 ML BAG IV SCH ×2 (14:20→16:16)
--- NOTE | 2022-01-24 15:40 | Communication Note ---
Date of Service: January 24, 2022 ATTENDING ADDENDUM: The patient is an 86-year-old female who was recently admitted for heart failure and discharged on Lasix 40 mg daily. This was a new medication for her and she reports since arriving home she felt nauseous. She describes not eating or drinking much at all and complying with taking Lasix. She does not feel fluid overloaded per her report. Although she is oriented to person place and time, her answers are delayed and require time and thought before answering. She denies any pain and denies any nausea but is apathetic to food. She denies diarrhea. On physical exam she is hemodynamically stable and afebrile oxygenating 93% on room air. She is obese and alert but slow to respond. She is not in distress. Mucous membranes are moist. Cardiac exam reveals S1/S2 heard with an irregular rate and irregular rhythm suggestive of atrial fibrillation. There is no murmurs gallops or rubs heard. Pulmonary auscultation is clear throughout. Abdomen is soft, nontender nondistended without guarding. Peripheral extremities are warm and well perfused with no evidence of edema. She is able to sit up in bed independently without much assistance. Lab work reveals evidence of dehydration with an elevated creatinine to 3.89 last checked on 01/15 was 0.86. Magnesium is low at 1.4. Otherwise electrolytes are within normal limits. Liver panel reveals no abnormalities. Troponin is negative. Lipase is normal at 26. TSH is normal. She has no evidence of urinary tract infection and EKG does not reveal evidence of ischemia. Covid test is negative. Head CT revealed no hemorrhage, mass-effect or evidence of ischemia. 1. Acute renal failure 2/2 new diuretic and poor PO intake 2. Confusion 3. Hypomagnesemia. Agree with plan above to hold Lasix and lisinopril in setting of acute kidney injury likely secondary to new diuretic use and poor intake p.o. Agree with IV fluid resuscitation at a slow rate given history of heart failure and repeat BMP with electrolytes in a.m. Replace magnesium and monitor for clinical response. If no improvement in creatinine with this treatment consider consultation with nephrology. Teresa Light DO [facility]
--- NOTE | 2022-01-24 16:43 | XRay Report ---
XR chest 1V portable CLINICAL HISTORY: confusion, h/o heart failure on Lasix TECHNIQUE: Single frontal radiograph of the chest was obtained. Comparison: Comparison is made to chest one view 01/13/2022 FINDINGS: No lines and tubes are seen. The cardiomediastinal silhouette is stable. Interval decrease in pulmona ry vascular congestion. A few foci of atelectasis are seen. No evidence of pleural effusion or pneumo thorax. IMPRESSION: Previously noted pulmonary vascular congestion has resolved. ACT 112: Negative or not required by law. Electronically signed by: Nicko Radford M.D. 01/24/2022 4:42 PM
[2022-01-24] MEDS ORDERED: ACETAMINOPHEN 325 MG TAB PO PRN (17:37)
[2022-01-24] MEDS: SODIUM CHLORIDE 0.9% 1000ML 1,000 ML IV SCH (17:51)
[2022-01-24] MEDS: APIXABAN 2.5 MG TAB PO SCH (20:40)
[2022-01-24] MEDS: MAGNESIUM OXIDE 400 MG TAB PO SCH (20:40)
[2022-01-24] MEDS: METOPROLOL TARTRATE 25 MG TAB PO SCH (20:40)
[2022-01-25] MEDS: SODIUM CHLORIDE 0.9% 1000ML 1,000 ML IV SCH ×2 (06:26→20:08)
[2022-01-25 07:14] LABS: Hematocrit (blood only) 30.4 % (37-47); Hemoglobin 9.8 g/dL (12.0-16.0); Mean Corpuscular Hemoglobin 30.3 pg (25-34); Mean Corpuscular Hgb Conc 32.2 g/dL (32-36); Mean Corpuscular Volume 94.1 fL (80-100); Mean Platelet Volume 8.7 fL (7.4-10.4); Platelet Count 267 K/uL (130-400); RDW Coefficient of Variation 13.4 % (11.5-14.5); Red Blood Count 3.23 M/uL (4.2-5.4); White Blood Count 10.08 K/uL (4.8-10.8)
[2022-01-25 07:36] LABS: BUN Creatinine Ratio 24.8 (10-20); Calcium 8.9 mg/dl (8.5-10.1); Est GFR (African American) 14.2 ml/min; Est GFR (Non-African American) 12.2 ml/min; Magnesium 1.9 mg/dl (1.7-2.4); Potassium 4.3 mmol/L (3.5-5.1)
[2022-01-25] MEDS: ATORVASTATIN 40 MG TAB PO SCH (08:09)
[2022-01-25] MEDS: MAGNESIUM OXIDE 400 MG TAB PO SCH ×2 (08:09→20:43)
[2022-01-25] MEDS: METOPROLOL TARTRATE 25 MG TAB PO SCH ×2 (08:09→20:43)
[2022-01-25] MEDS: PANTOprazole 40 MG TAB PO SCH (08:09)
[2022-01-25] MEDS: APIXABAN 2.5 MG TAB PO SCH ×2 (08:09→20:43)
[2022-01-25] MEDS: predniSONE 5 MG TAB PO SCH (08:09)
[2022-01-25] MEDS: allopurinoL 100 MG TAB PO SCH (08:09)
--- NOTE | 2022-01-25 09:42 | Magnetic Resonance Report ---
MR brain wo con CLINICAL HISTORY: Dizziness and confusion. No reported head injury. COMPARISON STUDY: CT brain from 01/24/2022 TECHNIQUE: Multiplanar multisequence images of the Brain were performed without IV contrast. Diffusi on weighted imaging and ADC mapping was also performed. FINDINGS: Extra-axial space: There is no evidence for a subdural hematoma, There are no extra-axial fluid denae ections. Ventricles and cisterns: The ventricles are mildly dilated bilaterally. There is no evidence for mid line shift or mass effect. Parenchyma: There is no evidence for an acute hemorrhage or infarct. No acute diffusion abnormalities are noted on diffusion weighted imaging or ADC mapping. There is normal thomas-white differentiation. There is mild cerebral cortical atrophy present. There is bright signal seen on FLAIR weighted sequen olinda within the centrum semiovale and periventricular white matter characteristic of remote small vess el disease. The sulci and gyri appear normal without effacement. The midline structures are unremarka ble. The posterior fossa structures appear normal. There is no evidence for mass lesion. Osseous structures: The paranasal sinuses are well aerated. The mastoid air cells are well aerated. Soft tissues: No focal soft tissue abnormalities are identified. IMPRESSION: 1. No acute intracranial abnormalities. 2. Mild cerebral cortical atrophy and remote small vessel disease. ACT 112: Negative or not required by law. Electronically signed by: Will Shelton M.D. 01/25/2022 9:40 AM
--- NOTE | 2022-01-25 11:08 | Ultrasound Report ---
US renal/blad retro comp CLINICAL HISTORY: HA TECHNIQUE: Multiple sonographic real-time images of the kidneys and bladder were obtained. COMPARISON: None available at the time of this dictation. FINDINGS: The right kidney measures 12.6 cm in length, and the left kidney measures 11.7 cm in length. The right kidney is normal in size, contour, cortical thickness, and echogenicity. No hydronephrosis is identified. No renal lesion is identified. No perinephric fluid collection is seen. The left kidney is normal in size, contour, cortical thickness and echogenicity. No hydronephrosis i s identified. There is a tiny 0.6 cm cyst. No perinephric fluid collection is seen. The bladder is partially distended. No large intraluminal mass is seen. IMPRESSION: Unremarkable examination and in particular no evidence of hydronephrosis. ACT 112: Negative or not required by law. Electronically signed by: Nicko Radford M.D. 01/25/2022 11:06 AM
--- NOTE | 2022-01-25 16:55 | Hospitalist Progress Note ---
Date of Service January 25, 2022 Assessment & Plan (1) HA (acute kidney injury): Plan: Patient presenting from home with reports of confusion and generalized weakness HA Likely secondary to meds management of home Lasix (Patient admits getting confused with meds) --Renal USD:Unremarkable examination and in particular no evidence of hydronephrosis. Cr:3.89>3.22 Hold Lasix, Lisinopril Avoid nephrotoxic agents as able Continue IV fluids Monitor volume status given history of CHF Monitor renal function (2) Confusion: Plan: Daughter states that she noted an abrupt change in her mother's mental status about 2 weeks ago. States that her mother was able to function independently in the home and was able to manage her medications. Over the past 2 weeks, she notes increased confusion and forgetfulness and difficulty managing her medications. -Acute Metabolic encephalopathy Brain MRI:No acute intracranial abnormalities. Mild cerebral cortical atrophy and remote small vessel disease. May be developing dementia PT/OT eval Mental status better (3) Chronic atrial fibrillation: Plan: Recently changed from warfarin to apixaban due to compliance issues Due to HA, apixaban dose adjusted to 2.5 mg BID (4) (HFpEF) heart failure with preserved ejection fraction: Plan: w/ valvular disease Holding Lasix due to HA Monitor volume status (5) Hypomagnesemia: Plan: replete electrolytes as needed (6) Hx of gout: Plan: Hold colchicine and reduce allopurinol dosing due to HA (7) Rheumatoid arthritis: Plan: On chronic prednisone (8) HTN (hypertension): Plan: BP stable Holding lisinopril due to HA (9) GERD (gastroesophageal reflux disease): Plan: Continue PPI, hold sucralfate due to HA (10) DVT prophylaxis: Plan: Apixaban Admission and Anticipated Discharge Date Admission Date: January 24, 2022 Subjective Patient is seen and examined Confusion resolved Patient offers no complaints Renal function slowly improving Denies any chest pain, shortness breath, dizziness, nausea, abdominal pain Review of Systems Review of Systems: All systems reviewed & are unremarkable except as noted in Subjective Physical Exam Physical Exam: Physical Exam: Vitals signs as noted above General Appearance:Obese, no apparent distress Head: normocephalic, Atraumatic Eyes: normal inspection, EOMI Neck: supple, Trachea midline Respiratory/Chest: Normal breath sounds, CTA, No accessory muscle use Cardiovascular: S1, S2, No murmur Abdomen/GI:Soft, non tender, Bowel sounds present Extremities/Musculoskeletal:normal inspection, Trace LE edema Neurologic/Psych:AAOX3, grossly no focal neurological deficits Skin: normal color, warm Results & Data Results & Data ([facility]) Vital Signs (Past 12 Hours) Vital Signs Temp Pulse Pulse Resp BP Pulse Ox 01/25/22 16:20 36.6 C 64 16 143/80 H 96 01/25/22 16:12 65 01/25/22 15:36 37.0 C 78 18 107/60 96 01/25/22 11:24 36.6 C 72 18 123/72 95 01/25/22 07:43 64 01/25/22 07:02 68 18 133/76 92 Laboratory Results Short CBC 01/25/22 Range/Units 06:57 WBC 10.08 (4.8-10.8) K/uL Hgb 9.8 L (12.0-16.0) g/dL Hct 30.4 L (37-47) % Plt Count 267 (130-400) K/uL BMP 01/25/22 06:57 Sodium 137 Potassium 4.3 Chloride 101 Carbon Dioxide 28 BUN 80 H Creatinine 3.22 H D Glucose 121 H Calcium 8.9
[2022-01-26 07:50] LABS: Hematocrit (blood only) 32.8 % (37-47); Hemoglobin 10.8 g/dL (12.0-16.0); Mean Corpuscular Hemoglobin 30.7 pg (25-34); Mean Corpuscular Hgb Conc 32.9 g/dL (32-36); Mean Corpuscular Volume 93.2 fL (80-100); Mean Platelet Volume 8.7 fL (7.4-10.4); Platelet Count 300 K/uL (130-400); RDW Coefficient of Variation 13.4 % (11.5-14.5); RDW Standard Deviation 45.4 fL (36.4-46.3); Red Blood Count 3.52 M/uL (4.2-5.4); White Blood Count 11.24 K/uL (4.8-10.8)
[2022-01-26 08:11] LABS: BUN Creatinine Ratio 32.3 (10-20); Calcium 9.1 mg/dl (8.5-10.1); Creatinine Clr Calc Pharmacy 16.7 ml/min; Est GFR (Non-African American) 22.4 ml/min; Magnesium 1.5 mg/dl (1.7-2.4); Potassium 4.5 mmol/L (3.5-5.1)
[2022-01-26] MEDS: APIXABAN 2.5 MG TAB PO SCH ×2 (08:19→21:31)
[2022-01-26] MEDS: PANTOprazole 40 MG TAB PO SCH (08:19)
[2022-01-26] MEDS: allopurinoL 100 MG TAB PO SCH (08:19)
[2022-01-26] MEDS: ATORVASTATIN 40 MG TAB PO SCH (08:19)
[2022-01-26] MEDS: MAGNESIUM OXIDE 400 MG TAB PO SCH ×2 (08:19→21:31)
[2022-01-26] MEDS: METOPROLOL TARTRATE 25 MG TAB PO SCH ×2 (08:19→21:31)
[2022-01-26] MEDS: predniSONE 5 MG TAB PO SCH (08:19)
[2022-01-26] MEDS ORDERED: ONDANSETRON INJ 2 MG/ML 2 ML VIAL IV PRN (08:23)
[2022-01-26] MEDS: SODIUM CHLORIDE 0.9% 1000ML 1,000 ML IV SCH (09:03)
[2022-01-26] MEDS ORDERED: MAGNESIUM SULFATE / D5W 1 GM/100 ML BAG IV ONE (09:15)
--- NOTE | 2022-01-26 16:48 | Hospitalist Progress Note ---
Date of Service January 26, 2022 Assessment & Plan (1) HA (acute kidney injury): Plan: Patient presenting from home with reports of confusion and generalized weakness HA Likely secondary to meds management of home Lasix (Patient admits getting confused with taking home meds) --Renal USD:Unremarkable examination and in particular no evidence of hydronephrosis. Cr:3.89>3.22>1.95 Hold Lasix, Lisinopril Avoid nephrotoxic agents as able Continue IV fluids Monitor volume status given history of CHF Monitor renal function Renal function slowly improving (2) Confusion: Plan: Daughter states that she noted an abrupt change in her mother's mental status about 2 weeks ago. States that her mother was able to function independently in the home and was able to manage her medications. Over the past 2 weeks, she notes increased confusion and forgetfulness and difficulty managing her medications. -Acute Metabolic encephalopathy Brain MRI:No acute intracranial abnormalities. Mild cerebral cortical atrophy and remote small vessel disease. May be developing dementia PT/OT eval Mental status better (3) Chronic atrial fibrillation: Plan: Recently changed from warfarin to apixaban due to compliance issues Due to HA, apixaban dose adjusted to 2.5 mg BID (4) (HFpEF) heart failure with preserved ejection fraction: Plan: w/ valvular disease Holding Lasix due to HA Monitor volume status (5) Hypomagnesemia: Plan: replete electrolytes as needed (6) Hx of gout: Plan: Hold colchicine and reduce allopurinol dosing due to HA (7) Rheumatoid arthritis: Plan: On chronic prednisone Leukocytosis due to steroid (8) HTN (hypertension): Plan: BP stable Holding lisinopril due to HA (9) GERD (gastroesophageal reflux disease): Plan: Continue PPI, hold sucralfate due to HA (10) DVT prophylaxis: Plan: Apixaban Admission and Anticipated Discharge Date Admission Date: January 24, 2022 Subjective Patient is seen and examined States having nausea earlier today but later resolved Eager to get discharged Renal function improving Denies any chest pain, shortness breath, dizziness, nausea, abdominal pain Review of Systems Review of Systems: All systems reviewed & are unremarkable except as noted in Subjective Physical Exam Physical Exam: Physical Exam: Vitals signs as noted above General Appearance:Obese, no apparent distress Head: normocephalic, Atraumatic Eyes: normal inspection, EOMI Neck: supple, Trachea midline Respiratory/Chest: Normal breath sounds, CTA, No accessory muscle use Cardiovascular: S1, S2, No murmur Abdomen/GI:Soft, non tender, Bowel sounds present Extremities/Musculoskeletal:normal inspection, Trace LE edema Neurologic/Psych:AAOX3, grossly no focal neurological deficits Skin: normal color, warm Results & Data Results & Data ([facility]) Vital Signs (Past 12 Hours) Vital Signs Temp Pulse Pulse Resp BP Pulse Ox 01/26/22 15:23 36.5 C 80 20 136/75 92 01/26/22 15:20 82 01/26/22 10:42 36.6 C 92 H 20 161/78 H 94 01/26/22 07:50 84 01/26/22 07:07 36.5 C 87 20 168/71 H 91 Laboratory Results Short CBC 01/26/22 Range/Units 07:22 WBC 11.24 H (4.8-10.8) K/uL Hgb 10.8 L (12.0-16.0) g/dL Hct 32.8 L (37-47) % Plt Count 300 (130-400) K/uL BMP 01/26/22 07:22 Sodium 141 Potassium 4.5 Chloride 106 Carbon Dioxide 27 BUN 63 H Creatinine 1.95 H D Glucose 122 H Calcium 9.1
[2022-01-27 08:02] LABS: BUN Creatinine Ratio 28.1 (10-20); Calcium 8.9 mg/dl (8.5-10.1); Creatinine Clr Calc Pharmacy 19.5 ml/min; Est GFR (African American) 31.3 ml/min; Magnesium 1.4 mg/dl (1.7-2.4); Potassium 4.3 mmol/L (3.5-5.1)
[2022-01-27] MEDS: METOPROLOL TARTRATE 25 MG TAB PO SCH ×2 (08:34→21:46)
[2022-01-27] MEDS: APIXABAN 2.5 MG TAB PO SCH ×2 (08:34→21:46)
[2022-01-27] MEDS: predniSONE 5 MG TAB PO SCH (08:34)
[2022-01-27] MEDS: MAGNESIUM OXIDE 400 MG TAB PO SCH ×2 (08:34→21:45)
[2022-01-27] MEDS: allopurinoL 100 MG TAB PO SCH (08:34)
[2022-01-27] MEDS: ATORVASTATIN 40 MG TAB PO SCH (08:35)
[2022-01-27] MEDS: PANTOprazole 40 MG TAB PO SCH (08:35)
--- NOTE | 2022-01-27 09:34 | XRay Report ---
XR chest 1V portable CLINICAL HISTORY: Hypoxia. COMPARISON STUDY: 01/24/2022 TECHNIQUE: 1 view of the chest FINDINGS: Single frontal view of the chest demonstrates the heart to be enlarged. Compared to previous examinat ion, there has been interval development of diffuse central and peripheral interstitial edema. Findin gs are characteristic of cardiac decompensation and early congestive heart failure. There is no evide nce for pleural effusion. No confluent alveolar opacities are identified. There is no acute osseous p athology. IMPRESSION: 1. Interval development of diffuse central and peripheral interstitial edema characteristic of conges tive heart failure. ACT 112: Negative or not required by law. Electronically signed by: Will Shelton M.D. 01/27/2022 9:33 AM
[2022-01-27] MEDS ORDERED: FUROSEMIDE INJ 20 MG/2 ML VIAL IV ONE (09:45)
[2022-01-27] MEDS: MAGNESIUM SULFATE / D5W 1 GM/100 ML BAG IV SCH ×2 (09:54→12:12)
--- NOTE | 2022-01-27 15:18 | Hospitalist Progress Note ---
Date of Service January 27, 2022 Assessment & Plan (1) HA (acute kidney injury): Plan: Patient presenting from home with reports of confusion and generalized weakness HA Likely secondary to meds management of home Lasix (Patient admits getting confused with taking home meds) --Renal USD:Unremarkable examination and in particular no evidence of hydronephrosis. Cr:3.89>3.22>1.95>1.67 Hold Lasix, Lisinopril Avoid nephrotoxic agents as able DC IV fluids as patient developing volume overload Monitor renal function Renal function slowly improving Pulmonary edema Hypoxia Likely due to IV fluids and holding diuretics due to HA Resume diuretics Wean off of oxygen as able (2) Confusion: Plan: Daughter states that she noted an abrupt change in her mother's mental status about 2 weeks ago. States that her mother was able to function independently in the home and was able to manage her medications. Over the past 2 weeks, she notes increased confusion and forgetfulness and difficulty managing her medications. -Acute Metabolic encephalopathy Brain MRI:No acute intracranial abnormalities. Mild cerebral cortical atrophy and remote small vessel disease. May be developing dementia PT/OT eval Mental status better (3) Chronic atrial fibrillation: Plan: Recently changed from warfarin to apixaban due to compliance issues Due to HA, apixaban dose adjusted to 2.5 mg BID (4) (HFpEF) heart failure with preserved ejection fraction: Plan: w/ valvular disease Initially lasix held due to HA Monitor volume status (5) Hypomagnesemia: Plan: replete electrolytes as needed (6) Hx of gout: Plan: Hold colchicine and reduce allopurinol dosing due to HA (7) Rheumatoid arthritis: Plan: On chronic prednisone Leukocytosis due to steroid (8) HTN (hypertension): Plan: BP stable Holding lisinopril due to HA (9) GERD (gastroesophageal reflux disease): Plan: Continue PPI, hold sucralfate due to HA (10) DVT prophylaxis: Plan: Apixaban Admission and Anticipated Discharge Date Admission Date: January 24, 2022 Subjective Patient is seen and examined at bedside Hypoxic today Offers no complaints Eager to get discharged Renal function continues to improve Denies any chest pain, shortness breath, dizziness, nausea, abdominal pain Review of Systems Review of Systems: All systems reviewed & are unremarkable except as noted in Subjective Physical Exam Physical Exam: Physical Exam: Vitals signs as noted above General Appearance:Obese, no apparent distress Head: normocephalic, Atraumatic Eyes: normal inspection, EOMI Neck: supple, Trachea midline Respiratory/Chest: Normal breath sounds, CTA, No accessory muscle use Cardiovascular: S1, S2, No murmur Abdomen/GI:Soft, non tender, Bowel sounds present Extremities/Musculoskeletal:normal inspection, Trace LE edema Neurologic/Psych:AAOX3, grossly no focal neurological deficits Skin: normal color, warm Results & Data Results & Data ([facility]) Vital Signs (Past 12 Hours) Vital Signs Temp Pulse Resp BP Pulse Ox 01/27/22 11:21 36.7 C 82 16 109/52 L 99 01/27/22 07:46 36.6 C 96 H 16 134/72 93 01/27/22 06:10 90 01/27/22 05:49 118 H 16 156/82 H 86 L 01/27/22 04:00 36.5 C 110 H 20 189/92 H 90 Laboratory Results BMP 01/27/22 07:04 Sodium 140 Potassium 4.3 Chloride 106 Carbon Dioxide 24 BUN 47 H Creatinine 1.67 H Glucose 151 H Calcium 8.9
[2022-01-28 06:37] LABS: BUN Creatinine Ratio 32.8 (10-20); Calcium 8.8 mg/dl (8.5-10.1); Creatinine Clr Calc Pharmacy 27.4 ml/min; Est GFR (African American) 47.2 ml/min; Est GFR (Non-African American) 40.7 ml/min; Magnesium 1.8 mg/dl (1.7-2.4); Potassium 3.9 mmol/L (3.5-5.1)
[2022-01-28] MEDS ORDERED: FUROSEMIDE INJ 20 MG/2 ML VIAL IV ONE (08:16)
[2022-01-28] MEDS: ATORVASTATIN 40 MG TAB PO SCH (08:21)
[2022-01-28] MEDS: allopurinoL 100 MG TAB PO SCH (08:21)
[2022-01-28] MEDS: APIXABAN 2.5 MG TAB PO SCH (08:21)
[2022-01-28] MEDS: predniSONE 5 MG TAB PO SCH (08:22)
[2022-01-28] MEDS: METOPROLOL TARTRATE 25 MG TAB PO SCH (08:22)
[2022-01-28] MEDS: MAGNESIUM OXIDE 400 MG TAB PO SCH (08:22)
[2022-01-28] MEDS: PANTOprazole 40 MG TAB PO SCH (08:22)
[2022-01-28] MEDS ORDERED: POLYETHYLENE (MIRALAX) 17 GM PACK PO PRN (13:06)
--- NOTE | 2022-01-28 13:32 | Hospitalist Progress Note ---
Date of Service January 28, 2022 Assessment & Plan (1) HA (acute kidney injury): Plan: Patient presenting from home with reports of confusion and generalized weakness HA Likely secondary to meds management of home Lasix (Patient admits getting confused with taking home meds) --Renal USD:Unremarkable examination and in particular no evidence of hydronephrosis. Cr:3.89>3.22>1.95>1.67>1.19 Lisinopril held Avoid nephrotoxic agents as able IV fluids discontinued Monitor renal function Renal function back to normal Pulmonary edema Hypoxia--Resolved Likely due to IV fluids and holding diuretics due to HA Continue diuretics Weaned off of oxygen Saturating well on room air 2 Step :Did not qualify for oxygen (2) Confusion: Plan: Daughter states that she noted an abrupt change in her mother's mental status about 2 weeks ago. States that her mother was able to function independently in the home and was able to manage her medications. Over the past 2 weeks, she notes increased confusion and forgetfulness and difficulty managing her medications. -Acute Metabolic encephalopathy Brain MRI:No acute intracranial abnormalities. Mild cerebral cortical atrophy and remote small vessel disease. May be developing dementia PT/OT eval Mental status better Home Health upon discharge to help with medications (3) Chronic atrial fibrillation: Plan: Recently changed from warfarin to apixaban due to compliance issues Due to HA, apixaban dose adjusted to 2.5 mg BID (4) (HFpEF) heart failure with preserved ejection fraction: Plan: w/ valvular disease Initially lasix held due to HA Monitor volume status (5) Hypomagnesemia: Plan: replete electrolytes as needed (6) Hx of gout: Plan: On Colchicine as needed as per patient Reduce allopurinol dosing due to HA (7) Rheumatoid arthritis: Plan: On chronic prednisone Leukocytosis due to steroid (8) HTN (hypertension): Plan: BP stable Will resume Lisinopril at reduced dose of 5mg daily (9) GERD (gastroesophageal reflux disease): Plan: Continue PPI, sucralfate (10) DVT prophylaxis: Plan: Apixaban Admission and Anticipated Discharge Date Admission Date: January 24, 2022 Subjective Patient is seen and examined at bedside Doing well today 2 Step: Did not qualify for oxygen Discussed with patient's daughter over the phone No new complaints Renal function back to normal Denies any chest pain, shortness breath, dizziness, nausea, abdominal pain Review of Systems Review of Systems: All systems reviewed & are unremarkable except as noted in Subjective Physical Exam Physical Exam: Physical Exam: Vitals signs as noted above General Appearance:Obese, no apparent distress Head: normocephalic, Atraumatic Eyes: normal inspection, EOMI Neck: supple, Trachea midline Respiratory/Chest: Normal breath sounds, CTA, No accessory muscle use Cardiovascular: S1, S2, No murmur Abdomen/GI:Soft, non tender, Bowel sounds present Extremities/Musculoskeletal:normal inspection, Trace LE edema Neurologic/Psych:AAOX3, grossly no focal neurological deficits Skin: normal color, warm Results & Data Results & Data ([facility]) Vital Signs (Past 12 Hours) Vital Signs Temp Pulse Pulse Pulse Pulse Pulse Resp 01/28/22 11:17 36.7 C 78 20 01/28/22 11:03 103 H 111 H 85 01/28/22 07:30 36.4 C L 96 H 19 01/28/22 06:16 72 01/28/22 05:44 01/28/22 04:46 01/28/22 04:45 14 01/28/22 04:11 36.3 C L 74 18 01/28/22 03:02 71 Resp Resp Resp BP Pulse Ox Pulse Ox Pulse Ox 01/28/22 11:17 119/78 93 01/28/22 11:03 18 18 18 90 90 01/28/22 07:30 137/82 93 01/28/22 06:16 01/28/22 05:44 93 01/28/22 04:46 01/28/22 04:45 79 L 01/28/22 04:11 150/79 H 89 L 01/28/22 03:02 Pulse Ox 01/28/22 11:17 01/28/22 11:03 91 01/28/22 07:30 01/28/22 06:16 01/28/22 05:44 01/28/22 04:46 82 L 01/28/22 04:45 01/28/22 04:11 01/28/22 03:02 94 Laboratory Results BMP 01/28/22 05:48 Sodium 141 Potassium 3.9 Chloride 106 Carbon Dioxide 28 BUN 39 H Creatinine 1.19 D Glucose 111 H Calcium 8.8
--- NOTE | 2022-01-28 13:45 | Discharge Summary ---
Date of Service January 28, 2022 Admission HPI Per Admitting Provider 86-year-old female with PMH chronic atrial fibrillation on Eliquis, moderate mitral regurgitation, mild aortic insufficiency, HTN, HLD, RA on chronic prednisone, gout, chronic vertigo, GERD, and other problems listed below who presents to the ED for evaluation of confusion and generalized weakness. Patient recently admitted to [facility] 01/11 through 01/15 for acute diastolic CHF. Patient received IV Lasix while admitted and was transitioned to Lasix 40 mg p.o. daily discharge. Due to compliance issues, patient was changed from warfarin to apixaban. Patient's daughter is the bedside who provides some history. Daughter states that she noted an abrupt change in her mother's mental status about 2 weeks ago. States that her mother was able to function independently in the home and was able to manage her medications. Over the past 2 weeks, she notes increased confusion and forgetfulness and difficulty managing her medications. Home health came to the patient's home today and noted the patient was confused and was very unsteady on her feet. EMS was called and patient was brought to the ED for further evaluation. Patient reports a poor appetite and some intermittent nausea which has been chronic. She states that she drinks water and diet drinks throughout the day. Patient denies chest pain or shortness of breath. She does have some intermittent lightheadedness and dizziness however no syncopal event. Denies difficulty speaking, understanding, unilateral weakness, numbness, tingling. Struggles with chronic nausea and diarrhea at times, no abdominal pain or vomiting. Denies any other recent il lnesses, fevers, chills. No urinary symptoms. In the ED, labs show creatinine 3.89 (baseline ~ 0.9). BP borderline low which improved after IVF. Admission Exam Per Admitting Provider Physical Exam Constitutional: WD/WN, vitals as above Eyes: PERRL, conjunctivae normal, anicteric sclerae ENMT: external ear and nose normal, oropharynx normal Respiratory: normal respiratory effort, lungs clear to auscultation Cardiovascular: Rate/Rhythm: regular rate and + irregularly irregular Vessels: normal peripheral pulses Extremities: no edema Gastrointestinal (Abdomen): normal bowel sounds, soft, nontender, no hepatosplenomegaly Musculoskeletal: no cyanosis or clubbing, extremities motor strength 5/5 Skin: no rashes, warm and dry Neurologic: PERRL, EOMI, accommodation nl, no face palsy, no dysarthria moves all extremities and awake; no focal motor deficits Motor/Sensory: no pronator drift Cranial Nerves: tongue midline Coordination: normal [id number] test and normal [id number] test Psychiatric: A+Ox3, euthymic affect Insight: + limited insight Forgetful Principal Diagnosis Acute kidney injury Acute Metabolic encephalopathy Pulmonary edema Transient Hypoxia Discharge Data Allergies Allergy/AdvReac Type Severity Reaction Status Date / Time No Known Drug Allergies Allergy Unknown . Verified 01/11/22 19:50 nickel AdvReac Unknown PAIN WITH Verified 01/11/22 19:50 HARDWARE IN ANKLE --> REMOVED Consultations 01/24/22 13:01 ED Decision to Admit Stat Ordered Studies 01/24/22 11:28 CT head/brain wo con Stat 01/24/22 14:33 MR brain wo con Routine 01/25/22 09:19 US renal/blad retro comp Routine Hospital Course (1) HA (acute kidney injury): Patient presenting from home with reports of confusion and generalized weakness HA Likely secondary to meds management of home Lasix (Patient admits getting co nfused with taking home meds) --Renal USD:Unremarkable examination and in particular no evidence of hydronephrosis. Cr:3.89>3.22>1.95>1.67>1.19 Lisinopril held Avoid nephrotoxic agents as able IV fluids discontinued Monitor renal function Renal function back to normal Pulmonary edema Hypoxia--Resolved Likely due to IV fluids and holding diuretics due to HA Continue diuretics Weaned off of oxygen Saturating well on room air 2 Step :Did not qualify for oxygen (2) Confusion: Daughter states that she noted an abrupt change in her mother's mental status about 2 weeks ago. States that her mother was able to function independently in the home and was able to manage her medications. Over the past 2 weeks, she notes increased confusion and forgetfulness and difficulty managing her medications. -Acute Metabolic encephalopathy Brain MRI:No acute intracranial abnormalities. Mild cerebral cortical atrophy and remote small vessel disease. May be developing dementia PT/OT eval Mental status better Home Health upon discharge to help with medications (3) Chronic atrial fibrillation: Recently changed from warfarin to apixaban due to compliance issues Due to HA, apixaban dose adjusted to 2.5 mg BID (4) (HFpEF) heart failure with preserved ejection fraction: w/ valvular disease Initially lasix held due to HA Monitor volume status (5) Hypomagnesemia: replete electrolytes as needed (6) Hx of gout: On Colchicine as needed as per patient Reduce allopurinol dosing due to HA (7) Rheumatoid arthritis: On chronic prednisone Leukocytosis due to steroid (8) HTN (hypertension): BP stable Will resume Lisinopril at reduced dose of 5mg daily (9) GERD (gastroesophageal reflux disease): Continue PPI, sucralfate (10) DVT prophylaxis: Apixaban Total Time Total Time Spent Total Time Spent (In Minutes): 45 minutes Discharge Plan Discharge Items Patient Disposition: Home - Home Health Services Reason For Visit: HA Discharge Diagnosis: Acute kidney injury Acute Metabolic encephalopathy Pulmonary edema Transient Hypoxia Activity: Per Instructions section Exercise/Sports: Gradually increase as tolerated Non-emergency contact: Primary Care Provider and Electrical Controls Technician Call non-emergency contact if: you have any medication questions, your symptoms worsen, your pain is concerning for you and you have a fever Follow-up/Referrals: Chilo Marte [Primary Care Provider] - Diet: Heart Healthy and Low Sodium (2gm) Addtl Attending Provider Instructions: Follow-up with your primary care physician Dr. Marte in 1 week. Please call for appointment Follow-up with your logistic manager in 1 to 2 weeks. --- Your medications were adjusted based on your kidney function. Follow-up with your physician for further need for medication adjustments as needed. --- Get blood test (basic metabolic panel) in 1 week and follow-up with your physician for results. Seek immediate medical attention if your symptoms reoccur or worsen Please take all medications as instructed on discharge list below. Please call if you have any questions or problems. You can reach a [facility] hospitalist on duty at [facility] 24 hours a day by calling [phone] Pending Studies at Discharge: No Stand-Alone Forms: My [facility], Smoking Cessation Medications and DC Order Prescriptions: New Eliquis 2.5 mg Tablet 2.5 mg PO BID Qty: 60 RF: 0 lisinopril 5 mg tablet 5 mg PO DAILY Qty: 30 RF: 0 polyethylene glycol 3350 [Miralax] 17 gram Powder In Packet 17 g PO DAILY PRN (Reason: constipation) Qty: 30 RF: 0 Continued omeprazole 40 mg capsule,delayed release(DR/EC) 40 mg PO QAM RF: 0 metoprolol tartrate 25 mg tablet 25 mg PO BID RF: 0 ondansetron HCl 8 mg tablet 8 mg PO Q8 PRN (Reason: Nausea) RF: 0 sucralfate 1 gram tablet 1 g PO AC RF: 0 atorvastatin 40 mg tablet 40 mg PO DAILY RF: 0 colchicine 0.6 mg tablet 0.6 mg PO UD RF: 0 meclizine 25 mg tablet 25 mg PO TID PRN (Reason: dizziness) Qty: 14 RF: 0 furosemide 40 mg Tablet 40 mg PO QAM Qty: 30 RF: 0 prednisone 5 mg Tablet 5 mg PO QAM RF: 0 cholecalciferol (vitamin D3) [Vitamin D3] 25 mcg (1,000 unit) Tablet 25 mcg PO QAM RF: 0 magnesium oxide 400 mg magnesium Capsule 400 mg PO BID RF: 0 amoxicillin 500 mg Capsule 2,000 mg PO UD PRN (Reason: PRE DENTAL) RF: 0 acetaminophen [Tylenol] 325 mg capsule 650 mg PO Q6H PRN (Reason: fever or pain) Qty: 60 RF: 0 Changed allopurinol 100 mg tablet 100 mg PO DAILY Qty: 0 RF: 0 Discontinued Eliquis 5 mg Tablet 5 mg PO BID Qty: 60 RF: 1 lisinopril 10 mg Tablet 10 mg PO QAM RF: 0 Discharge Orders: Discharge Order (Routine); Ordered 01/28/22 Ordered By: Josue Harden Admission Data Admit Date/Time: 01/24/22 13:05 Attending Provider: Josue Harden Admit Provider: Teresa Light Primary Care Provider: Chilo Marte Other Providers: Teresa Light
[2022-01-29] MEDS ORDERED: FUROSEMIDE 40 MG TAB PO SCH (09:00)
== END 2022-01-28 14:40 | disposition home health service (06) | DRG 682 ==
LOC: ED 09:34 → EDINP 13:05 → SUATTDRO 13:05 → 2N 16:04

== ENCOUNTER 2022-03-22 18:49 | Inpatient (IN) ==
[2022-03-22 21:04] LABS: Basophils # (auto) 0.01 K/uL (0-0.2); Basophils % (auto) 0.1 %; Eosinophils # (auto) 0.12 K/uL (0-0.5); Eosinophils % (auto) 1.1 %; Hematocrit (blood only) 35.1 % (37-47); Hemoglobin 11.1 g/dL (12.0-16.0); Immature Granulocytes # (auto) 0.05 K/uL (0.00-0.02); Immature Granulocytes % (auto) 0.4 %; Lymphocytes # (auto) 2.36 K/uL (1.2-3.4); Mean Corpuscular Hemoglobin 30.1 pg (25-34); Mean Corpuscular Hgb Conc 31.6 g/dL (32-36); Mean Corpuscular Volume 95.1 fL (80-100); Mean Platelet Volume 8.9 fL (7.4-10.4); Monocytes # (auto) 0.83 K/uL (0.11-0.59); Monocytes % (auto) 7.4 %; Neutrophils # (auto) 7.88 K/uL (1.4-6.5); Platelet Count 271 K/uL (130-400); RDW Coefficient of Variation 15.8 % (11.5-14.5); RDW Standard Deviation 54.9 fL (36.4-46.3); Red Blood Count 3.69 M/uL (4.2-5.4); White Blood Count 11.25 K/uL (4.8-10.8)
[2022-03-22 21:29] LABS: Albumin Level 3.4 gm/dl (3.4-5.0); Bilirubin,Total 0.6 mg/dl (0.2-1.0); Creatinine Clr Calc Pharmacy 36.6 ml/min; Est GFR (African American) 61.2 ml/min; Est GFR (Non-African American) 52.8 ml/min; Globulin 3.5 gm/dl (2.5-4.0); Potassium 4.3 mmol/L (3.5-5.1); Total Protein 6.9 gm/dl (6.0-8.3)
[2022-03-23] MEDS: MAGNESIUM SULFATE / D5W 1 GM/100 ML BAG IV SCH ×2 (00:03→01:45)
--- NOTE | 2022-03-23 00:32 | Emergency Department Note ---
History of Present Illness General Chief Complaint: Abnormal Labs/Diagnostic Testing Stated Complaint: ABNORMAL LAB RESULTS, MAGNESIUM 1.1 Time Seen by Provider: 03/22/22 22:33 History of Present Illness Provider Complaint: + abnormal lab Returns today for: + called because of abnormal lab/test Description of abnormal result: low magnesium Symptoms since prior visit: + no new symptoms Context: + planned re-check Associated symptoms: no fever, no chills, no chest pain, no shortness of breath, no rash, no malaise or no nausea Home Medications Medication Instructions Recorded Confirmed Type omeprazole 40 mg capsule,delayed 40 mg PO QAM 01/15/19 03/22/22 History release metoprolol tartrate 25 mg tablet 25 mg PO BID tab 06/05/19 03/22/22 History cholecalciferol (vitamin D3) 25 25 mcg PO QAM 10/06/21 03/22/22 History mcg (1,000 unit) tablet (Vitamin D3) magnesium oxide 400 mg PO BID 10/06/21 03/22/22 History prednisone 5 mg tablet 5 mg PO QAM 10/06/21 03/22/22 History amoxicillin 500 mg capsule 2,000 mg PO UD PRN 12/13/21 03/22/22 History acetaminophen 325 mg capsule 650 mg PO Q6H PRN #60 cap 12/16/21 03/22/22 Rx (Tylenol) atorvastatin 40 mg tablet 40 mg PO DAILY 01/09/22 03/22/22 History meclizine 25 mg tablet 25 mg PO TID PRN #14 tab 01/09/22 03/22/22 Rx ondansetron HCl 8 mg tablet 8 mg PO Q8 PRN 01/09/22 03/22/22 History sucralfate 1 gram tablet 1 g PO AC 01/09/22 03/22/22 History allopurinol 100 mg tablet 100 mg PO DAILY #0 tab 01/28/22 03/22/22 Rx apixaban 2.5 mg tablet (Eliquis) 2.5 mg PO BID #60 tab 01/28/22 03/22/22 Rx lisinopril 5 mg tablet 5 mg PO DAILY #30 tab 01/28/22 03/22/22 Rx polyethylene glycol 3350 17 gram 17 g PO DAILY PRN #30 ea 01/28/22 03/22/22 Rx oral powder packet (Miralax) furosemide 20 mg tablet 20 mg PO DAILY 03/22/22 03/22/22 History Allergies Allergy/AdvReac Type Severity Reaction Status Date / Time No Known Drug Allergies Allergy Unknown . Verified 03/22/22 23:44 nickel AdvReac Unknown PAIN WITH Verified 03/22/22 23:44 HARDWARE IN ANKLE --> REMOVED Past Med/Surg History Medical History (HFpEF) heart failure with preserved ejection fraction Chronic atrial fibrillation GERD (gastroesophageal reflux disease) Hemorrhage following tonsillectomy and adenoidectomy History of anxiety History of cardioversion X 1 "OVER 30 YEARS AGO" History of IBS History of TMJ disorder HTN (hypertension) Hx of gout Hx of migraines Hx of vertigo Hyperlipidemia care home current use of anticoagulant Osteoarthritis Rheumatoid arthritis Splenic infarct Surgical History H/O wisdom tooth extraction History of cardiac cath NO STENTS, REMOTE HX History of cataract surgery RT/LEFT History of cholecystectomy History of colonoscopy History of conization of cervix History of esophagogastroduodenoscopy (EGD) History of open reduction and internal fixation (ORIF) procedure LEFT ANKLE (+HARDWARE REMOVED) History of total knee replacement LEFT Family History Father Family history of diabetes mellitus Mother Family history of diabetes mellitus Sister Family history of diabetes mellitus Other Heart disease No family history of adverse response to anesthesia Social History Smoking Status: Never smoker Second Hand Exposure: No; Hx Alcohol Use: No Hx Substance Use: No Preferred Language: Belgian Communication Ability: Effective 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 Beliefs That Will Affect Care: None marital status: / Current Living Situation: Alone Current Living Situation Comment: [employer] current occupational status: retired Feels Safe at Home: Yes Assistive Devices: Walker Review of Systems A total of 6 systems reviewed and were otherwise negative Physical Exam Vital Signs: Vital Signs - 24 hr 03/22/22 19:10 03/22/22 22:00 Temperature 36.2 C L Temperature Source Temporal Artery Sc an Pulse Rate 86 Pulse Rate [Apical ] 69 Respiratory Rate 18 19 Respiratory Effort / Characteristics Non-Labored Sponta neous Respiratory Depth Normal Normal Blood Pressure 119/66 Blood Pressure [Le ft Arm] 150/84 H Blood Pressure Genny n 83 Blood Pressure Genny n [Left Arm] 106 Blood Pressure Pos ition Sitting Pulse Oximetry 93 98 Oxygen Delivery Me thod Room Air Room Air Sepsis Recent Feve r Within 48 Hours No Sepsis New/Unexpla ined Change in Men mliagros Status No Sepsis Action Take n by Nursing No Action Required Physical Exam: Physical Exam GENERAL: He is oriented to person, place, and time. He appears well-developed and well-nourished. He does not appear distressed. HENT: Exam performed. - Head: Normocephalic and atraumatic. - Right Ear: External ear normal. No mastoid tenderness. - Left Ear: External ear normal. No mastoid tenderness. - Mouth/Throat: The oropharynx is clear and moist. No trismus in the jaw. No dental abscesses or uvula swelling. No oropharyngeal exudate or tonsillar abscesses. EYES: Conjunctivae and EOM are normal. Pupils are equal, round, and reactive to light. Right eye exhibits no discharge. Left eye exhibits no discharge. No scleral icterus. NECK: Normal range of motion. Neck supple. No JVD present. No spinous process tenderness present. No carotid bruit present. No rigidity. No tracheal deviation and normal range of motion present. No Brudzinski's sign and no Kernig's sign noted. CV: Normal rate, irregular rhythm, normal heart sounds and intact distal pulses. There is no peripheral edema. Palpable radial pulses bue. PULM/CHEST: Effort normal and breath sounds normal. No respiratory distress. No stridor. He has no wheezes. He has no rales. - Chest Wall: He exhibits no tenderness. ABD: The abdomen is soft. Bowel sounds are normal. He has no distension. No mass is present. There is no tenderness. There is no rebound, no guarding, no Rao's sign and no tenderness at McBurney's point. Rovsig negative. MUSC/SKEL: Normal range of motion. There is no peripheral edema, tenderness or deformity. LYMPH: No cervical adenopathy. NEURO: He is alert and oriented to person, place, and time. He has normal strength. No cranial nerve deficit or sensory deficit. Coordination and gait normal. GCS eye subscore is 4. GCS verbal subscore is 5. GCS motor subscore is 6. Cerebellar tests wnl. SKIN: Skin is warm and dry. He is not diaphoretic. PSYCH: He has a normal mood and affect. Behavior is normal. Judgment and thought content normal. Course Course 2232: The patient was evaluated in room B5. A complete history and physical exam was performed Cardiac monitoring: An order was placed for continuous cardiac monitoring. The monitor shows a rate of 80 with atrial fib rhythm 2311: Vital signs stable. Labs show magnesium 1.3. Otherwise within normal limits. Magnesium repletion will be begun in the emergency department [facility]. Administered Medications Magnesium Sulfate/Dextrose (Magnesium Sulfate / D5w) 1 gm in 100 mls @ 100 mls/hr IV Q1H EVIE Stop: 03/23/22 01:19 Last Admin: 03/23/22 00:03 Dose: 100 mls/hr Documented by: [id number] Medical Decision Making Laboratory Data Result diagrams: 03/22/22 20:47 03/22/22 20:47 Lab Results 03/22/22 03/22/22 03/22/22 Range/Units 20:47 20:47 20:47 WBC 11.25 H (4.8-10.8) K/uL RBC 3.69 L (4.2-5.4) M/uL Hgb 11.1 L (12.0-16.0) g/dL Hct 35.1 L (37-47) % MCV 95.1 (80-100) fL MCH 30.1 (25-34) pg MCHC 31.6 L (32-36) g/dL RDW Std Deviation 54.9 H (36.4-46.3) fL RDW Coeff of Yue 15.8 H (11.5-14.5) % Plt Count 271 (130-400) K/uL MPV 8.9 (7.4-10.4) fL Immature Gran % (Auto) 0.4 % Neut % (Auto) 70.0 % Lymph % (Auto) 21.0 % [place] % (Auto) 7.4 % Eos % (Auto) 1.1 % Baso % (Auto) 0.1 % Neut # (Auto) 7.88 H (1.4-6.5) K/uL Lymph # (Auto) 2.36 (1.2-3.4) K/uL [place] # (Auto) 0.83 H (0.11-0.59) K/uL Eos # (Auto) 0.12 (0-0.5) K/uL Baso # (Auto) 0.01 (0-0.2) K/uL Immature Gran # (Auto) 0.05 H (0.00-0.02) K/uL Sodium 140 (136-145) mmol/L Potassium 4.3 (3.5-5.1) mmol/L Chloride 103 (98-107) mmol/L Carbon Dioxide 30 (21-32) mmol/L Anion Gap 7 (3-11) BUN 25 H (6-23) mg/dl Creatinine 0.96 (0.6-1.2) mg/dl Est Cr Clr Drug Dosing 36.6 ml/min Est GFR ( Amer) 61.2 ml/min Est GFR (Non-Af Amer) 52.8 ml/min BUN/Creatinine Ratio 26.0 H (10-20) Glucose 152 H (70-99(Fasting)) mg/dl Calcium 9.0 (8.5-10.1) mg/dl Magnesium 1.3 L (1.7-2.4) mg/dl Total Bilirubin 0.6 (0.2-1.0) mg/dl AST 12 L (13-39) U/L ALT 8 (7-52) U/L Alkaline Phosphatase 64 (34-104) U/L Total Protein 6.9 (6.0-8.3) gm/dl Albumin 3.4 (3.4-5.0) gm/dl Globulin 3.5 (2.5-4.0) gm/dl Albumin/Globulin Ratio 1.0 (0.9-2) SARS-CoV-2, RNA, NAAT (NEGATIVE) 03/22/22 Range/Units 23:50 WBC (4.8-10.8) K/uL RBC (4.2-5.4) M/uL Hgb (12.0-16.0) g/dL Hct (37-47) % MCV (80-100) fL MCH (25-34) pg MCHC (32-36) g/dL RDW Std Deviation (36.4-46.3) fL RDW Coeff of Yue (11.5-14.5) % Plt Count (130-400) K/uL MPV (7.4-10.4) fL Immature Gran % (Auto) % Neut % (Auto) % Lymph % (Auto) % [place] % (Auto) % Eos % (Auto) % Baso % (Auto) % Neut # (Auto) (1.4-6.5) K/uL Lymph # (Auto) (1.2-3.4) K/uL [place] # (Auto) (0.11-0.59) K/uL Eos # (Auto) (0-0.5) K/uL Baso # (Auto) (0-0.2) K/uL Immature Gran # (Auto) (0.00-0.02) K/uL Sodium (136-145) mmol/L Potassium (3.5-5.1) mmol/L Chloride (98-107) mmol/L Carbon Dioxide (21-32) mmol/L Anion Gap (3-11) BUN (6-23) mg/dl Creatinine (0.6-1.2) mg/dl Est Cr Clr Drug Dosing ml/min Est GFR ( Amer) ml/min Est GFR (Non-Af Amer) ml/min BUN/Creatinine Ratio (10-20) Glucose (70-99(Fasting)) mg/dl Calcium (8.5-10.1) mg/dl Magnesium (1.7-2.4) mg/dl Total Bilirubin (0.2-1.0) mg/dl AST (13-39) U/L ALT (7-52) U/L Alkaline Phosphatase (34-104) U/L Total Protein (6.0-8.3) gm/dl Albumin (3.4-5.0) gm/dl Globulin (2.5-4.0) gm/dl Albumin/Globulin Ratio (0.9-2) SARS-CoV-2, RNA, NAAT NEGATIVE (NEGATIVE) ECG Data Indication: other (arrythmia) Rate (beats per minute): 80 Rhythm: atrial fibrillation Findings: no ST depression, no ST elevation or no prolonged QT MDM Narrative Vital signs stable. Labs show magnesium 1.3. Otherwise within normal limits. Magnesium repletion will be begun in the emergency department [facility]. Impression & Plan Hypomagnesemia Discharge Plan Visit Data Chief Complaint: Abnormal Labs/Diagnostic Testing Stated Complaint: ABNORMAL LAB RESULTS, MAGNESIUM 1.1 Discharge Problem: Hypomagnesemia Patient Disposition: Admitted As Inpatient Forms Stand Alone Forms: My [facility] Prescriptions Prescriptions: No Action omeprazole 40 mg capsule,delayed release(DR/EC) 40 mg PO QAM RF: 0 metoprolol tartrate 25 mg tablet 25 mg PO BID RF: 0 ondansetron HCl 8 mg tablet 8 mg PO Q8 PRN (Reason: Nausea) RF: 0 sucralfate 1 gram tablet 1 g PO AC RF: 0 atorvastatin 40 mg tablet 40 mg PO DAILY RF: 0 meclizine 25 mg tablet 25 mg PO TID PRN (Reason: dizziness) Qty: 14 RF: 0 prednisone 5 mg Tablet 5 mg PO QAM RF: 0 cholecalciferol (vitamin D3) [Vitamin D3] 25 mcg (1,000 unit) Tablet 25 mcg PO QAM RF: 0 magnesium oxide 400 mg magnesium Capsule 400 mg PO BID RF: 0 amoxicillin 500 mg Capsule 2,000 mg PO UD PRN (Reason: PRE DENTAL) RF: 0 acetaminophen [Tylenol] 325 mg capsule 650 mg PO Q6H PRN (Reason: fever or pain) Qty: 60 RF: 0 Eliquis 2.5 mg Tablet 2.5 mg PO BID Qty: 60 RF: 0 lisinopril 5 mg tablet 5 mg PO DAILY Qty: 30 RF: 0 polyethylene glycol 3350 [Miralax] 17 gram Powder In Packet 17 g PO DAILY PRN (Reason: constipation) Qty: 30 RF: 0 allopurinol 100 mg tablet 100 mg PO DAILY Qty: 0 RF: 0 furosemide 20 mg tablet 20 mg PO DAILY RF: 0 Referrals Referrals: Chilo Marte [Primary Care Provider] -
[2022-03-23] MEDS ORDERED: APIXABAN 2.5 MG TAB PO STA (01:52)
[2022-03-23] MEDS ORDERED: METOPROLOL TARTRATE 25 MG TAB PO STA (01:52)
--- NOTE | 2022-03-23 01:52 | History & Physical Report ---
Date of Service March 23, 2022 Assessment & Plan (1) Hypomagnesemia: Plan: Recurrent problem despite oral magnesium supplement Patient asymptomatic. chronic diastolic heart failure (EF 65 to 69%, TTE 2021), patient euvolemic Afib on Eliquis valvular heart disease (moderate MR, mild AR) pulmonary hypertension HTN, stable hyperlipidemia, on statin Rx rheumatoid arthritis on chronic steroid Rx chronic anemia, hemoglobin at baseline Hyperglycemia likely DM, hemoglobin A1c of 6.09 January 2022 GMF Replace magnesium Nephrology consult Re: Recurrent hypomagnesemia May benefit from amiloride Rx Basal insulin, ISS BG goal 1 10-1 40, carb count coverage, DM education DVT prophylaxis. Eliquis Full code Text document was generated using [employer] voice recognition software. It may contain grammatical or spelling errors. Kindly contact undersigned for clarification of any documentation item in question. History of Present Illness Chief Complaint: Abnormal blood work Primary Care Provider: Chilo Marte History obtained from patient and records. Medical history significant for chronic diastolic heart failure (EF 65 to 69%, TTE 2021), Afib on Eliquis, valvular heart disease (moderate MR, mild AR), pulmonary hypertension, hypertension, hyperlipidemia, rheumatoid arthritis on chronic steroid Rx, chronic anemia (baseline hemoglobin 10-11). Last confinement January 2022 for ARF, encephalopathy, hypomagnesemia. Patient seen at the ER 2 weeks ago for UTI and hypomagnesemia. Patient given IV magnesium. Discharged on Keflex for UTI. Urine CS grew Enterobacter. Patient had follow-up at PCPs office. Outpatient serum magnesium noted to be low. Patient denies chest pain, SOB, unusual weakness. Denies headache, abdominal pain symptoms Dizzy spells not as bad. Patient directed by PCP to ER for evaluation. Medical History as above Surgical History : Knee surgery surgery, breast lesion excision, cataract surgeries, ankle fracture surgery Family History : DM, heart disease Personal/Social history : Non-smoker, no EtOH intake, retired store employee, lives alone Allergies Allergy/AdvReac Type Severity Reaction Status Date / Time No Known Drug Allergies Allergy Unknown . Verified 03/22/22 23:44 nickel AdvReac Unknown PAIN WITH Verified 03/22/22 23:44 HARDWARE IN ANKLE --> REMOVED Home Medications Medication Instructions Recorded Confirmed Type omeprazole 40 mg capsule,delayed 40 mg PO QAM 01/15/19 03/22/22 History release metoprolol tartrate 25 mg tablet 25 mg PO BID tab 06/05/19 03/22/22 History cholecalciferol (vitamin D3) 25 25 mcg PO QAM 10/06/21 03/22/22 History mcg (1,000 unit) tablet (Vitamin D3) magnesium oxide 400 mg PO BID 10/06/21 03/22/22 History prednisone 5 mg tablet 5 mg PO QAM 10/06/21 03/22/22 History amoxicillin 500 mg capsule 2,000 mg PO UD PRN 12/13/21 03/22/22 History acetaminophen 325 mg capsule 650 mg PO Q6H PRN #60 cap 12/16/21 03/22/22 Rx (Tylenol) atorvastatin 40 mg tablet 40 mg PO DAILY 01/09/22 03/22/22 History meclizine 25 mg tablet 25 mg PO TID PRN #14 tab 01/09/22 03/22/22 Rx ondansetron HCl 8 mg tablet 8 mg PO Q8 PRN 01/09/22 03/22/22 History sucralfate 1 gram tablet 1 g PO AC 01/09/22 03/22/22 History allopurinol 100 mg tablet 100 mg PO DAILY #0 tab 01/28/22 03/22/22 Rx apixaban 2.5 mg tablet (Eliquis) 2.5 mg PO BID #60 tab 01/28/22 03/22/22 Rx lisinopril 5 mg tablet 5 mg PO DAILY #30 tab 01/28/22 03/22/22 Rx polyethylene glycol 3350 17 gram 17 g PO DAILY PRN #30 ea 01/28/22 03/22/22 Rx oral powder packet (Miralax) furosemide 20 mg tablet 20 mg PO DAILY 03/22/22 03/22/22 History Past Med/Surg History Medical History (HFpEF) heart failure with preserved ejection fraction Chronic atrial fibrillation GERD (gastroesophageal reflux disease) Hemorrhage following tonsillectomy and adenoidectomy History of anxiety History of cardioversion X 1 "OVER 30 YEARS AGO" History of IBS History of TMJ disorder HTN (hypertension) Hx of gout Hx of migraines Hx of vertigo Hyperlipidemia assisted current use of anticoagulant Osteoarthritis Rheumatoid arthritis Splenic infarct Surgical History H/O wisdom tooth extraction History of cardiac cath NO STENTS, REMOTE HX History of cataract surgery RT/LEFT History of cholecystectomy History of colonoscopy History of conization of cervix History of esophagogastroduodenoscopy (EGD) History of open reduction and internal fixation (ORIF) procedure LEFT ANKLE (+HARDWARE REMOVED) History of total knee replacement LEFT Family History Father Family history of diabetes mellitus Mother Family history of diabetes mellitus Sister Family history of diabetes mellitus Other Heart disease No family history of adverse response to anesthesia Social History Smoking Status: Never smoker Second Hand Exposure: No; Hx Alcohol Use: No Hx Substance Use: No Preferred Language: Greek Communication Ability: Effective 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 Beliefs That Will Affect Care: None marital status: / Current Living Situation: Alone Current Living Situation Comment: [employer] current occupational status: retired Other Information That Helps Us Care for You: No Feels Safe at Home: Yes Safety Concerns: Feels Safe At This Time Assistive Devices: Cane Review of Systems Review of Systems: As per HPI, all other systems reviewed and negative Physical Exam 2 Physical Exam: GENERAL: Comfortable, slightly hard of hearing, obese, respiratory distress SKIN: Pallor, warm HEENT: Pale palpebral conjunctivae, no ptosis, dry buccal mucosa NECK : Supple, short neck, no tenderness CHEST : Decreased breath sounds, no tenderness HEART : Irregular, systolic murmur ABDOMEN: Some distention, nontender EXTREMITIES : Minimal LE swelling, no LE tenderness, no other conspicuous deformities noted NEUROLOGIC : Coherent, no facial asymmetry, slightly hard of hearing, no other gross focality Results & Data Results & Data ([facility]) Vital Signs (Past 12 Hours) Vital Signs Temp Pulse Pulse Resp BP BP Pulse Ox 03/23/22 00:00 72 18 150/84 H 93 03/22/22 22:00 69 19 150/84 H 98 03/22/22 19:10 36.2 C L 86 18 119/66 93 Laboratory Results Laboratory Results WBC 11.25 K/uL (4.8-10.8) H 03/22/22 20:47 RBC 3.69 M/uL (4.2-5.4) L 03/22/22 20:47 Hgb 11.1 g/dL (12.0-16.0) L 03/22/22 20:47 Hct 35.1 % (37-47) L 03/22/22 20:47 MCV 95.1 fL (80-100) 03/22/22 20:47 MCH 30.1 pg (25-34) 03/22/22 20: MCHC 31.6 g/dL (32-36) L 03/22/22 20: RDW Std Deviation 54.9 fL (36.4-46.3) H 03/22/22 20:47 RDW Coeff of Yue 15.8 % (11.5-14.5) H 03/22/22 20:47 Plt Count 271 K/uL (130-400) 03/22/22 20: MPV 8.9 fL (7.4-10.4) 03/22/22 20:47 Immature Gran % (Auto) 0.4 % 03/22/22 20:47 Neut % (Auto) 70.0 % 03/22/22 20:47 Lymph % (Auto) 21.0 % 03/22/22 20:47 [place] % (Auto) 7.4 % 03/22/22 20:47 Eos % (Auto) 1.1 % 03/22/22 20:47 Baso % (Auto) 0.1 % 03/22/22 20:47 Neut # (Auto) 7.88 K/uL (1.4-6.5) H 03/22/22 20:47 Lymph # (Auto) 2.36 K/uL (1.2-3.4) 03/22/22 20:47 [place] # (Auto) 0.83 K/uL (0.11-0.59) H 03/22/22 20:47 Eos # (Auto) 0.12 K/uL (0-0.5) 03/22/22 20:47 Baso # (Auto) 0.01 K/uL (0-0.2) 03/22/22 20:47 Immature Gran # (Auto) 0.05 K/uL (0.00-0.02) H 03/22/22 20:47 Sodium 140 mmol/L (136-145) 03/22/22 20:47 Potassium 4.3 mmol/L (3.5-5.1) 03/22/22 20:47 Chloride 103 mmol/L (98-107) 03/22/22 20:47 Carbon Dioxide 30 mmol/L (21-32) 03/22/22 20:47 Anion Gap 7 (3-11) 03/22/22 20:47 BUN 25 mg/dl (6-23) H 03/22/22 20:47 Creatinine 0.96 mg/dl (0.6-1.2) 03/22/22 20:47 Est Cr Clr Drug Dosing 36.6 ml/min 03/22/22 20:47 Est GFR ( Amer) 61.2 ml/min 03/22/22 20:47 Est GFR (Non-Af Amer) 52.8 ml/min 03/22/22 20:47 BUN/Creatinine Ratio 26.0 (10-20) H 03/22/22 20:47 Glucose 152 mg/dl (70-99(Fasting)) H 03/22/22 20:47 Calcium 9.0 mg/dl (8.5-10.1) 03/22/22 20:47 Magnesium 1.3 mg/dl (1.7-2.4) L 03/22/22 20:47 Total Bilirubin 0.6 mg/dl (0.2-1.0) 03/22/22 20:47 AST 12 U/L (13-39) L 03/22/22 20:47 ALT 8 U/L (7-52) 03/22/22 20:47 Alkaline Phosphatase 64 U/L (34-104) 03/22/22 20:47 Total Protein 6.9 gm/dl (6.0-8.3) 03/22/22 20:47 Albumin 3.4 gm/dl (3.4-5.0) 03/22/22 20:47 Globulin 3.5 gm/dl (2.5-4.0) 03/22/22 20:47 Albumin/Globulin Ratio 1.0 (0.9-2) 03/22/22 20:47 SARS-CoV-2, RNA, NAAT NEGATIVE (NEGATIVE) 03/22/22 23:50 Diagnostic Findings EKG as per my interpretation: Rate 80, A. fib, normal axis, T wave abnormality septal leads
[2022-03-23] MEDS ORDERED: MAGNESIUM SULFATE / D5W 1 GM/100 ML BAG IV ONE (02:00)
[2022-03-23] MEDS ORDERED: POLYETHYLENE (MIRALAX) 17 GM PACK PO PRN (02:45)
[2022-03-23] MEDS ORDERED: DEXTROSE 50% 50 ML SYRINGE IV PRN (02:45)
[2022-03-23] MEDS ORDERED: CARBOHYDRATES FOR HYPOGLYCEMIA PO PRN (02:45)
[2022-03-23] MEDS ORDERED: ACETAMINOPHEN 325 MG TAB PO PRN (02:45)
[2022-03-23] MEDS ORDERED: GLUCOSE 40% GEL 15 GM TUBE PO PRN (02:45)
[2022-03-23] MEDS ORDERED: GLUCOSE 10 TABS/TUBE PO PRN (02:45)
[2022-03-23] MEDS ORDERED: GLUCAGON FOR INJ 1 MG VIAL SQ PRN (02:45)
[2022-03-23] MEDS: INSULIN ASPART PER UNIT SC SCH ×3 (02:50→12:50)
[2022-03-23 06:45] LABS: Basophils # (auto) 0.01 K/uL (0-0.2); Basophils % (auto) 0.1 %; Eosinophils # (auto) 0.18 K/uL (0-0.5); Eosinophils % (auto) 1.9 %; Hematocrit (blood only) 32.5 % (37-47); Hemoglobin 10.3 g/dL (12.0-16.0); Immature Granulocytes # (auto) 0.05 K/uL (0.00-0.02); Immature Granulocytes % (auto) 0.5 %; Lymphocytes # (auto) 2.56 K/uL (1.2-3.4); Lymphocytes % (auto) 27.4 %; Mean Corpuscular Hemoglobin 30.2 pg (25-34); Mean Corpuscular Hgb Conc 31.7 g/dL (32-36); Mean Corpuscular Volume 95.3 fL (80-100); Mean Platelet Volume 8.8 fL (7.4-10.4); Monocytes # (auto) 0.62 K/uL (0.11-0.59); Monocytes % (auto) 6.6 %; Neutrophils # (auto) 5.94 K/uL (1.4-6.5); Neutrophils % (auto) 63.5 %; Platelet Count 233 K/uL (130-400); RDW Coefficient of Variation 15.8 % (11.5-14.5); RDW Standard Deviation 54.7 fL (36.4-46.3); Red Blood Count 3.41 M/uL (4.2-5.4); White Blood Count 9.36 K/uL (4.8-10.8)
[2022-03-23 07:04] LABS: BUN Creatinine Ratio 30.4 (10-20); Calcium 8.9 mg/dl (8.5-10.1); Creatinine Clr Calc Pharmacy 44.5 ml/min; Est GFR (African American) 77.5 ml/min; Est GFR (Non-African American) 66.8 ml/min; Magnesium 2.5 mg/dl (1.7-2.4)
[2022-03-23] MEDS: SUCRALFATE 1 GM TAB PO SCH ×2 (08:10→12:42)
[2022-03-23] MEDS ORDERED: METOPROLOL TARTRATE 25 MG TAB PO SCH (09:00)
[2022-03-23] MEDS ORDERED: allopurinoL 100 MG TAB PO SCH (09:00)
[2022-03-23] MEDS ORDERED: INSULIN GLARGINE SOLOSTAR 100 UNITS/ML 3 ML PEN SC SCH (09:00)
[2022-03-23] MEDS ORDERED: ATORVASTATIN 40 MG TAB PO SCH (09:00)
[2022-03-23] MEDS ORDERED: APIXABAN 2.5 MG TAB PO SCH (09:00)
[2022-03-23] MEDS ORDERED: predniSONE 5 MG TAB PO SCH (09:00)
[2022-03-23] MEDS ORDERED: FUROSEMIDE 20 MG TAB PO SCH (09:00)
[2022-03-23] MEDS ORDERED: lisinopril 5 MG TAB PO SCH (09:00)
[2022-03-23] MEDS ORDERED: PANTOprazole 40 MG TAB PO SCH (09:00)
[2022-03-23] MEDS ORDERED: MAGNESIUM OXIDE 400 MG TAB PO SCH (09:00)
--- NOTE | 2022-03-23 11:53 | Consultation Report ---
NEPHROLOGY CONSULTATION NOTE DATE OF CONSULTATION: 03/23/2022. REASON FOR CONSULTATION: Hypomagnesemia. HISTORY OF PRESENT ILLNESS: The patient is an 86-year-old female who was sent to the hospital by her PCP after her outpatient serum magnesium was noted to be low. It was 0.8 and since being admitted, she has received 2 grams of IV magnesium. The patient is supposed to be on 400 mg of magnesium twice daily. However, for the last few days or so, she has only been taking 400 mg once daily due to some technical confusion. She does have some chronic diarrhea on a regular basis. The patient was also seen in the emergency department 2 weeks ago for UTI and also had low magnesium at that time. She wa s given IV magnesium during that trip to the emergency department and was discharged on Keflex for ur inary tract infection, which was for Enterobacter. The patient was not really having any symptoms at this time. Her magnesium has gone from 0.8-2.5 in less than 12-hour time period with very minimal m agnesium supplementation. PAST MEDICAL AND SURGICAL HISTORY: Includes knee surgery, breast lesion excision, cataract surgery, ankle fracture surgery, chronic diastolic heart failure with an EF of 65-69%, atrial fibrillation on Eliquis, valvular heart disease with moderate MR and mild MR, pulmonary hypertension, systemic hypert ension, hyperlipidemia, rheumatoid arthritis on chronic steroid treatment, chronic anemia with a base line hemoglobin in the 10s. FAMILY HISTORY: Negative for renal disease or dialysis. PERSONAL AND SOCIAL HISTORY: Nonsmoker, no alcohol. She is a retired store employee. She lives [place] in an apartment. ALLERGIES: NICKEL. MEDICATIONS: Home medication list was reviewed in detail. She is supposed to be on magnesium 400 tw ice daily, but because of some technical confusion, she was only taking once a day. Also takes lisin opril 5 mg daily, Lasix 20 mg daily. Other medications include omeprazole, metoprolol, vitamin D, pr ednisone 5 mg daily, Lipitor 40 mg daily, meclizine as needed, Zofran as needed, sucralfate 1 gram da amy, allopurinol, Eliquis. REVIEW OF SYSTEMS: She was not really having any acute symptoms at this time as the admission was pu rely for abnormal labs. PHYSICAL EXAMINATION: GENERAL: Elderly white female who is not in any distress. She is awake, alert, oriented x3. She ca n give me a full detailed account of her medical history without problem. VITAL SIGNS: Blood pressure is 148/79, pulse rate of 72, temperature 36.3, 94% on room air, pulse ra te of 72. CHEST: Bilaterally clear to auscultation. CARDIOVASCULAR: S1 and S2, regular. ABDOMEN: Soft, nontender. EXTREMITIES: Show trace edema. NEUROLOGIC: Awake, alert, oriented x3, normal speech. Moving all 4 extremities. LABORATORY TEST: At the time of admission, her magnesium was 0.8, but this morning is 2.5, BUN is 24 , creatinine 0.79, sodium 139, potassium 4.0, hemoglobin 10.3, WBC count 9.3. ASSESSMENT AND PLAN: An 86-year-old female who was admitted with abnormal labs showing severely low magnesium. For which I have been consulted. Hypomagnesemia. She came in with a magnesium level of 0.8, which is very low. However, in less than 12-hour time period her magnesium in fact overshoot to slightly high with 2 gram of IV magnesium and her regular magnesium of 400 twice daily. Such rapid and prompt rise of magnesium is always related with GI loss/nutritional deficiency. If the primary cause of low magnesium was renal loss, it is im possible to correct the magnesium, so quick regardless of what we do. We can still check the urine, magnesium and urine creatinine to calculate the fractional excretion of magnesium, but given the curr ent serum magnesium level and already corrected oral and IV supplementation, the results will be near ly impossible to interpret. She was also taking 400 once daily because of some technical confusion. It is quite possible there might be some absorption issue with her current magnesium formula. Given this, I would recommend the followin. Stop magnesium oxide. 2. Switch over to Slow-Mag 64 twice daily. We may increase the dose further to 128 twice daily, dep ending on the blood work, which can be done on Sunday at her PCP's office. 3. She does not need amiloride as I do not believe this is a case of primary renal loss of magnesium . Such condition is nearly impossible to correct so quick. 4. Continue Lasix. 5. Continue all other medication. 6. She can be followed with Nephrology at least one time to firmly establish the diagnosis of the lo w magnesium, so that we can prevent future hospitalization. She would need a urine magnesium and uri ne creatinine again at some point when she is on oral supplementation. Job ID: [id number]
--- NOTE | 2022-03-23 13:44 | Discharge Summary ---
Date of Service March 23, 2022 Admission HPI Per Admitting Provider History obtained from patient and records. Medical history significant for chronic diastolic heart failure (EF 65 to 69%, TTE 2021), Afib on Eliquis, valvular heart disease (moderate MR, mild AR), pulmonary hypertension, hypertension, hyperlipidemia, rheumatoid arthritis on chronic steroid Rx, chronic anemia (baseline hemoglobin 10-11). Last confinement January 2022 for ARF, encephalopathy, hypomagnesemia. Patient seen at the ER 2 weeks ago for UTI and hypomagnesemia. Patient given IV magnesium. Discharged on Keflex for UTI. Urine CS grew Enterobacter. Patient had follow-up at PCPs office. Outpatient serum magnesium noted to be low. Patient denies chest pain, SOB, unusual weakness. Denies headache, abdominal pain symptoms Dizzy spells not as bad. Patient directed by PCP to ER for evaluation. Medical History as above Surgical History : Knee surgery surgery, breast lesion excision, cataract surgeries, ankle fracture surgery Family History : DM, heart disease Personal/Social history : Non-smoker, no EtOH intake, retired store employee, lives alone Admission Exam Per Admitting Provider Constitutional: WD/WN, vitals as above Eyes: PERRL, conjunctivae normal, anicteric sclerae ENMT: external ear and nose normal, oropharynx normal Respiratory: normal respiratory effort, lungs clear to auscultation Cardiovascular: Rate/Rhythm: regular rate and + irregularly irregular Vessels: normal peripheral pulses Extremities: no edema Gastrointestinal (Abdomen): normal bowel sounds, soft, nontender, no hepatosplenomegaly Musculoskeletal: no cyanosis or clubbing, extremities motor strength 5/5 Skin: no rashes, warm and dry Neurologic: PERRL, EOMI, accommodation nl, no face palsy, no dysarthria moves all extremities and awake; no focal motor deficits Motor/Sensory: no pronator drift Cranial Nerves: tongue midline Coordination: normal [id number] test and normal [id number] test Psychiatric: A+Ox3, euthymic affect Insight: + limited insight Forgetful Principal Diagnosis Hypomagnesemia Chronic diastolic heart failure Afib HTN Hx of gout: Rheumatoid arthritis: Discharge Exam General- No acute distress Head- atraumatic Eyes- PERRL, EOMI, ENT- oropharynx clear Neck- supple, no JVD Lungs- clear to auscultation Heart- irregular rhythm; no murmur Abdomen- normal bowel sounds, soft, nontender Extremities- no calf tenderness Neuro- alert, oriented x 3; PERRL, EOMI; no facial palsy; no dysarthria Skin- warm & dry Discharge Data Allergies Allergy/AdvReac Type Severity Reaction Status Date / Time No Known Drug Allergies Allergy Unknown . Verified 03/22/22 23:44 nickel AdvReac Unknown PAIN WITH Verified 03/22/22 23:44 HARDWARE IN ANKLE --> REMOVED Consultations 03/22/22 23:11 ED Decision to Admit Stat 03/23/22 02:05 Consult Nephrology Routine Hospital Course (1) Hypomagnesemia: Pt was sent by her primary care provider for Hypomagnesemia Mg on admission was 1.3 Possible related GI loss/ Nutritional deficiency due to very quick correction after IV magnesium Received Magnesium 2g IV on admisison Repeat magnesium today was 2.5 Nephrology on board Case discussed with Dr. Jaeger At first Dr. Jaeger suggested to switch to slow-Mag 64 BID, then titrate to 128mg BID. but after I discussed to him over the phone, Dr. Jaeger recommended for her to increase the magnesium oxide BID to avoid any confusion with the change Check Magnesium level on Sunday She would need a urine magnesium and urine creatinine again at some point when she is on oral supplementation. Follow up with nephrology Chronic diastolic heart failure Echo on 2021 with EF 65 to 69%, TTE 2021 No sign of fluid oveload Continue lasix 20mg daily Afib Continue Eliquis HTN Continue Lisinopril 5mg , Metoprolol 25 mg BID Hx of gout: Continue Allopurinol Rheumatoid arthritis: On chronic prednisone GERD (gastroesophageal reflux disease): Continue PPI, sucralfate DVT prophylaxis: Apixaban Full code Total Time Total Time Spent Total Time Spent (In Minutes): 35 minutes Discharge Plan Discharge Items Patient Disposition: Home - Self-Care Reason For Visit: HYPOMAG Discharge Diagnosis: Hypomagnesemia Activity: Resume your previous activity Non-emergency contact: Primary Care Provider and Jewelry Making Instructor Call non-emergency contact if: you have any medication questions Follow-up/Referrals: Von Benjamin MD [Resident] - 03/28/22 9:50 am ([facility] [address] [place] [facility] [place] [address] ) Diet: Carb Consistent or DM2 Addtl Attending Provider Instructions: You were admitted at [facility] for low magnesium level. Follow up with your primary care provider Cam Bernard [address] [place] [facility] [address] Follow up with nephrology to help manage your magnesium You need to take your magnesium supplement 400mg twice a day Please check your magnesium level on Sunday at your provider office Your provider will check your urine magnesium, and urine creatinine level after a few weeks once you are on the oral magnesium supplement Seek medical attention if you develop any symptoms Fall precaution Pending Studies at Discharge: No Stand-Alone Forms: My [facility], Smoking Cessation Medications and DC Order Prescriptions: Continued omeprazole 40 mg capsule,delayed release(DR/EC) 40 mg PO QAM RF: 0 metoprolol tartrate 25 mg tablet 25 mg PO BID RF: 0 ondansetron HCl 8 mg tablet 8 mg PO Q8 PRN (Reason: Nausea) RF: 0 sucralfate 1 gram tablet 1 g PO AC RF: 0 atorvastatin 40 mg tablet 40 mg PO DAILY RF: 0 meclizine 25 mg tablet 25 mg PO TID PRN (Reason: dizziness) Qty: 14 RF: 0 prednisone 5 mg Tablet 5 mg PO QAM RF: 0 cholecalciferol (vitamin D3) [Vitamin D3] 25 mcg (1,000 unit) Tablet 25 mcg PO QAM RF: 0 magnesium oxide 400 mg magnesium Capsule 400 mg PO BID RF: 0 amoxicillin 500 mg Capsule 2,000 mg PO UD PRN (Reason: PRE DENTAL) RF: 0 acetaminophen [Tylenol] 325 mg capsule 650 mg PO Q6H PRN (Reason: fever or pain) Qty: 60 RF: 0 Eliquis 2.5 mg Tablet 2.5 mg PO BID Qty: 60 RF: 0 lisinopril 5 mg tablet 5 mg PO DAILY Qty: 30 RF: 0 polyethylene glycol 3350 [Miralax] 17 gram Powder In Packet 17 g PO DAILY PRN (Reason: constipation) Qty: 30 RF: 0 allopurinol 100 mg tablet 100 mg PO DAILY Qty: 0 RF: 0 furosemide 20 mg tablet 20 mg PO DAILY RF: 0 Discharge Orders: Discharge Order (Routine); Ordered 03/23/22 Ordered By: Kelley Vieyra Admission Data Admit Date/Time: 03/23/22 02:01 Attending Provider: Kelley Vieyra [place] Provider: Tad Barragan Primary Care Provider: Chilo Marte Other Providers: Tad Barragan ; Ester Nguyen ; Roberto Jaeger ; Tiff Hayes ; Anjelica Barlow ; Roni Joseph
--- NOTE | 2022-03-23 18:09 | Electrocardiogram Report ---
Test Reason : Blood Pressure : / mmHG Vent. Rate : 080 BPM Atrial Rate : 080 BPM P-R Int : 000 ms QRS Dur : 068 ms QT Int : 368 ms P-R-T Axes : 000 022 026 degrees QTc Int : 424 ms Atrial fibrillation Low voltage QRS Abnormal ECG When compared with ECG of 06-MAR-2022 17:56, No significant change was found Confirmed by Joe Steele ([id number]) on 03/23/2022 6:08:48 PM Referred By: Ferdinand Martins Confirmed By:Hudson Steele
== END 2022-03-23 15:03 | disposition home or self-care (01) | DRG 641 ==
LOC: ED 18:49 → 3N 03-23 02:01

== ENCOUNTER 2023-03-21 10:40 | Inpatient (IN) ==
[2023-03-21] MEDS ORDERED: ONDANSETRON INJ 2 MG/ML 2 ML VIAL IV STA (11:02)
--- NOTE | 2023-03-21 11:25 | XRay Report ---
SINGLE VIEW CHEST CLINICAL HISTORY: Vomiting. FINDINGS: An AP, portable, upright chest radiograph is compared to study dated 06/24/2022 and correlat ed with chest CT dated 07/24/2022. The heart is enlarged. The mitral annulus is densely calcified. The pulmonary vasculature is noncongested. Chronic interstitial thickening is similar to previous. The l ungs and pleural spaces are clear. No pneumothorax is seen. The skeletal structures are osteopenic. T he bony thorax is grossly intact. IMPRESSION: Cardiomegaly with no active disease in the chest. ACT 112: Negative or not required by law. Electronically signed by: Willam Ham M.D. 03/21/2023 11:24 AM
[2023-03-21] MEDS ORDERED: MECLIZINE HCL 25 MG TAB PO STA (11:29)
--- NOTE | 2023-03-21 11:46 | Emergency Department Note ---
History of Present Illness General Chief complaint: Vomiting Stated complaint: DENNIS REF, SYNCOPE, VOMITING, DIARRHEA Time Seen by Provider: 03/21/23 11:01 History of Present Illness Provider complaint: Nausea vomiting diarrhea Onset (ago): day(s) 3 Associated symptoms: + nausea/vomiting 87-year-old female presents emergency department for nausea vomiting and diarrhea. Patient reports her symptoms began on Sunday. Patient reports she piedra s been dealing with dizziness feeling like the room is spinning for on and off and like for the last month and states it is gotten worse since she has been having nausea vomiting diarrhea. No hematemesis coffee-ground emesis or bilious vomiting. No melena or hematochezia. No chest pain or difficulty breathing. No fevers. No hematuria dysuria. Home Medications Medication Instructions Recorded Confirmed Type omeprazole 40 mg capsule,delayed 40 mg PO QAM 01/15/19 03/21/23 History release metoprolol tartrate 25 mg tablet 25 mg PO BID 06/05/19 03/21/23 History cholecalciferol (vitamin D3) 25 25 mcg PO QAM 10/06/21 03/21/23 History mcg (1,000 unit) tablet (Vitamin D3) magnesium oxide 400 mg PO BID 10/06/21 03/21/23 History amoxicillin 500 mg capsule 2,000 mg PO UD PRN PRE DENTAL 12/13/21 03/21/23 History acetaminophen 325 mg capsule 650 mg PO Q6H PRN fever or pain 12/16/21 03/21/23 Rx (Tylenol) #60 caps atorvastatin 40 mg tablet 40 mg PO DAILY 01/09/22 03/21/23 History ondansetron HCl 8 mg tablet 8 mg PO Q8 PRN Nausea 01/09/22 03/21/23 History sucralfate 1 gram tablet 1 g PO AC 01/09/22 03/21/23 History apixaban 2.5 mg tablet (Eliquis) 2.5 mg PO BID #60 tabs 01/28/22 03/21/23 Rx allopurinol 100 mg tablet 200 mg PO DAILY 03/21/23 03/21/23 History fluticasone propionate 50 1 spray intranasal DAILY PRN 03/21/23 03/21/23 History mcg/actuation nasal Congestion spray,suspension Allergies Allergy/AdvReac Type Severity Reaction Status Date / Time No Known Drug Allergies Allergy Unknown . 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 Osteoarthritis Rheumatoid arthritis Splenic infarct Surgical History H/O wisdom tooth extraction History of cardiac cath NO STENTS, REMOTE HX History of cataract surgery RT/LEFT History of cholecystectomy History of colonoscopy History of conization of cervix History of esophagogastroduodenoscopy (EGD) History of open reduction and internal fixation (ORIF) procedure LEFT ANKLE (+HARDWARE REMOVED) History of total knee replacement LEFT Family History Father Family history of diabetes mellitus Mother Family history of diabetes mellitus Sister Family history of diabetes mellitus Other Heart disease No family history of adverse response to anesthesia Social History Smoking Status: Never smoker Second Hand Exposure: No; Do You Dip or Chew Tobacco: No; Hx Alcohol Use: No Hx Substance Use: No Preferred Language: Irish Communication Ability: Effective Communication Ability Comment: hard of hearing 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 Beliefs That Will Affect Care: None marital status: / Current Living Situation: Alone Current Living Situation Comment: [facility] current occupational status: retired Feels Safe at Home: Yes Assistive Devices: Cane Physical Exam Vital Signs Vital Signs - 24 hr 03/21/23 10:58 03/21/23 11:47 03/21/23 11:48 Temperature 36 C L Temperature Source Temporal Artery Scan Pulse Rate 76 68 Pulse Rate [Right Finger] Pulse Rhythm [Right Finger] Pulse Strength [Right Finger] Respiratory Rate 15 Respiratory Effort / Characteristics Respiratory Depth Respiratory Pattern Blood Pressure 158/75 H Blood Pressure [Right Arm] Blood Pressure Mean 102 Blood Pressure Mean [Right Arm] Blood Pressure Position [Right Arm] Pulse Oximetry 98 Oxygen Delivery Method Room Air Room Air Sepsis Recent Fever Within 48 Hours No Sepsis New/Unexplained Change in Mental Status N/A Sepsis Action Taken by Nursing No Action Required 03/21/23 12:00 Temperature Temperature Source Pulse Rate Pulse Rate [Right Finger] 66 Pulse Rhythm [Right Finger] Irregular Pulse Strength [Right Finger] Normal Respiratory Rate 14 Respiratory Effort / Characteristics Non-Labored Respiratory Depth Normal Respiratory Pattern Regular Blood Pressure Blood Pressure [Right Arm] 183/99 H Blood Pressure Mean Blood Pressure Mean [Right Arm] 127 Blood Pressure Position [Right Arm] Lying Pulse Oximetry 95 Oxygen Delivery Method Room Air Sepsis Recent Fever Within 48 Hours Sepsis New/Unexplained Change in Mental Status Sepsis Action Taken by Nursing Physical Exam GENERAL: oriented to person, place, and time. appears well-developed and well- nourished. HENT: Exam performed. - Head: Normocephalic and atraumatic. EYES: Conjunctivae and EOM are normal. Right eye exhibits no discharge. Left eye exhibits no discharge. No scleral icterus. NECK: Normal range of motion. Neck supple. No JVD present. CV: Normal rate, irregular rhythm, normal heart sounds and intact distal pulses. There is no peripheral edema. Palpable radial pulses bue. PULM/CHEST: Effort normal and breath sounds normal. No respiratory distress. No stridor. no wheezes. no rales. ABD: The abdomen is soft. There is no tenderness. NEURO: Motor and sensation grossly intact. SKIN: Skin is warm and dry. He is not diaphoretic. PSYCH: normal mood and affect. Behavior is normal. Judgment and thought content normal. Course Course 1101: The patient was evaluated in room C8. A complete history and physical exam was performed Cardiac monitoring: An order was placed for continuous cardiac monitoring. The monitor shows a rate of 70 with atrial fibrilation rhythm interpreted by me 1400: Vital signs stable. Labs within normal limits with exception of magnesium of 1.2 and troponin of 29.5. Imaging within normal limits. Patient will be admitted to the [facility] magnesium repletion begun in the emergency department. Patient will be admitted to Dr. Kohler team Administered Medications Sodium Chloride (Nss 1000ml) 1,000 mls @ 75 mls/hr IV .[id number] EVIE Stop: 04/20/23 11:14 Last Admin: 03/21/23 12:04 Dose: 125 mls/hr Documented By: MIRELA Discontinued Medications Magnesium Sulfate/Dextrose (Magnesium Sulfate / D5w) 1 gm in 100 mls @ 100 mls/hr IV Q1H EVIE Stop: 03/21/23 14:16 Last Infusion: 03/21/23 16:06 Dose: 0 mls/hr Documented By: Admin: 03/21/23 14:14 Dose: 100 mls/hr Documented By: Infusion: 03/21/23 13:35 Dose: 100 mls/hr Documented By: Admin: 03/21/23 12:35 Dose: 100 mls/hr Documented By: MIRELA Ioversol (Optiray 320 500ml) 94 ml IV ONCE ONE Stop: 03/21/23 13:09 Last Admin: 03/21/23 13:08 Dose: 94 ml Documented By: RIK Meclizine HCl (Meclizine Hcl 25 Mg Tab) 25 mg PO NOW STA Stop: 03/21/23 11:30 Last Admin: 03/21/23 12:35 Dose: 25 mg Documented By: MIRELA Ondansetron HCl (Ondansetron Inj 2 Mg/Ml 2 Ml Vial) 4 mg IV NOW STA Stop: 03/21/23 11:03 Last Admin: 03/21/23 12:04 Dose: 4 mg Documented By: MIRELA Medical Decision Making Laboratory Data Attestation: I reviewed the patient's lab results. 03/21/23 11:31 03/21/23 11:31 Lab Results 03/21/23 03/21/23 03/21/23 Range/Units 11:31 11:31 11:31 WBC 8.65 (4.8-10.8) K/ul RBC 3.79 L (4.20-5.40) M/uL Hgb 11.4 L (12.0-16.0) g/dl Hct 33.8 L (37.0-47.0) % MCV 89.2 (80.0-100.0) fL MCH 30.1 (25.0-34.0) pg MCHC 33.7 (32.0-36.0) g/dL RDW Std Deviation 48.6 H (36.4-46.3) fL RDW Coeff of Yue 15.0 H (11.5-14.5) % Plt Count 223 (130-400) K/uL MPV 8.4 L (9.4-12.4) fL Immature Gran % (Auto) 0.3 % Neut % (Auto) 80.4 % Lymph % (Auto) 13.3 % [place] % (Auto) 5.2 % Eos % (Auto) 0.6 % Baso % (Auto) 0.2 % Neut # (Auto) 6.95 H (1.40-6.50) K/uL Lymph # (Auto) 1.15 L (1.2-3.4) K/uL [place] # (Auto) 0.45 (0.11-0.59) K/uL Eos # (Auto) 0.05 (0-0.50) K/uL Baso # (Auto) 0.02 (0-0.2) K/uL Immature Gran # (Auto) 0.03 (0.01-0.20) K/uL PT 11.9 (9.0-12.0) Seconds INR 1.1 (0.9-1.1) APTT 27.1 (21.0-31.0) Seconds PTT Ratio 1.0 Sodium 137 (136-145) mmol/L Potassium 3.7 (3.5-5.1) mmol/L Chloride 102 (98-107) mmol/L Carbon Dioxide 26 (21-32) mmol/L Anion Gap 9 (3-11) BUN 18 (6-23) mg/dl Creatinine 0.74 (0.6-1.2) mg/dl Est Cr Clr Drug Dosing Not Reportable Est GFR ( Amer) 83.2 ml/min Est GFR (Non-Af Amer) 71.8 ml/min BUN/Creatinine Ratio 24.3 H (10-20) Glucose 134 H (70-99(Fasting)) mg/dl Calcium 9.3 (8.6-10.3) mg/dl Magnesium 1.2 L (1.7-2.4) mg/dl Total Bilirubin 0.6 (0.2-1.0) mg/dl Direct Bilirubin 0.1 (0-0.2) mg/dl AST 10 L (13-39) U/L ALT 5 L (7-52) U/L Alkaline Phosphatase 91 (34-104) U/L Troponin I High Sens 29.5 H (0-14) pg/ml Total Protein 7.6 (6.0-8.3) gm/dl Albumin 3.6 (3.4-5.0) gm/dl Lipase 9 L (11-82) U/L SARS-CoV-2 (PCR) (Negative) Influenza Type A (PCR) (Neg) Influenza Type B (PCR) (Neg) RSV (RT-PCR) (Neg) 03/21/23 Range/Units 11:42 WBC (4.8-10.8) K/ul RBC (4.20-5.40) M/uL Hgb (12.0-16.0) g/dl Hct (37.0-47.0) % MCV (80.0-100.0) fL MCH (25.0-34.0) pg MCHC (32.0-36.0) g/dL RDW Std Deviation (36.4-46.3) fL RDW Coeff of Yue (11.5-14.5) % Plt Count (130-400) K/uL MPV (9.4-12.4) fL Immature Gran % (Auto) % Neut % (Auto) % Lymph % (Auto) % [place] % (Auto) % Eos % (Auto) % Baso % (Auto) % Neut # (Auto) (1.40-6.50) K/uL Lymph # (Auto) (1.2-3.4) K/uL [place] # (Auto) (0.11-0.59) K/uL Eos # (Auto) (0-0.50) K/uL Baso # (Auto) (0-0.2) K/uL Immature Gran # (Auto) (0.01-0.20) K/uL PT (9.0-12.0) Seconds INR (0.9-1.1) APTT (21.0-31.0) Seconds PTT Ratio Sodium (136-145) mmol/L Potassium (3.5-5.1) mmol/L Chloride (98-107) mmol/L Carbon Dioxide (21-32) mmol/L Anion Gap (3-11) BUN (6-23) mg/dl Creatinine (0.6-1.2) mg/dl Est Cr Clr Drug Dosing Est GFR ( Amer) ml/min Est GFR (Non-Af Amer) ml/min BUN/Creatinine Ratio (10-20) Glucose (70-99(Fasting)) mg/dl Calcium (8.6-10.3) mg/dl Magnesium (1.7-2.4) mg/dl Total Bilirubin (0.2-1.0) mg/dl Direct Bilirubin (0-0.2) mg/dl AST (13-39) U/L ALT (7-52) U/L Alkaline Phosphatase (34-104) U/L Troponin I High Sens (0-14) pg/ml Total Protein (6.0-8.3) gm/dl Albumin (3.4-5.0) gm/dl Lipase (11-82) U/L SARS-CoV-2 (PCR) NEGATIVE (Negative) Influenza Type A (PCR) Negative (Neg) Influenza Type B (PCR) Negative (Neg) RSV (RT-PCR) Negative (Neg) Imaging Data Attestation: I personally reviewed and interpreted this imaging study as follows: My Impression: Chest x-ray: Cardiomegaly Radiologist's Impression: Abdomen/Pelvis CT 03/21/23 11:[address] WITH IV CONTRAST HISTORY: Acute nodule vomiting vomitting TECHNIQUE: Multiaxial CT images of the abdomen and pelvis were performed following the IV administration of 94 cc of Optiray, A dose lowering technique was utilized adhering to the principles of ALARA. COMPARISON STUDY: CT 07/24/2022 FINDINGS: Clear lung bases. Cardiomegaly with mitral annular calcifications. No pneumatosis or pneumoperitoneum. Unchanged appearance of the spleen which measures within the upper limits of normal in size. Mild generalized pancreatic atrophy with scattered parenchymal calcifications suggestive of chronic pancreatitis. Unremarkable adrenal glands. Cholecystectomy with likely postsurgical biliary ductal dilation.. The study is degraded by respiratory motion artifact. 1.0 cm hypodense lesion of the liver on image 125 is unchanged and likely benign. Patency of the hepatic and portal veins. Subcentimeter hypodense foci of the kidneys measuring up to approximately 9 mm on the left are technically too small to characterize however are suggestive of probable cysts. 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 Circumferential urinary bladder wall thickening with mucosal hyperemia, partial distention and perivesicular stranding. Uterus and adnexa are within normal limits. Atherosclerosis of the aorta. There is no lymphadenopathy identified. Small hiatal hernia. Gastric wall thickening with partial distention is similar to prior. Trace free pelvic fluid. No bowel obstruction or bowel wall thickening. No ascites or mesenteric inflammation. No CT evidence of acute appendicitis. Degenerative changes of the spine, pelvis and hips. Demineralized appearance of the bones. No acute fracture identified. IMPRESSION: 1. Findings suggestive of cystitis. Correlation with urinalysis recommended. 2. No bowel obstruction or bowel wall thickening. 3. Gastric wall thickening with partial distention is similar to prior. 4. Chronic findings as above. ACT 112: Negative or not required by law. The above report was generated using voice recognition software. It may contain grammatical, syntax or spelling errors. Electronically signed by: Dane Adan M.D. 03/21/2023 1:25 PM Chest X-Ray 03/21/23 11:03 SINGLE VIEW CHEST CLINICAL HISTORY: Vomiting. FINDINGS: An AP, portable, upright chest radiograph is compared to study dated 06/24/2022 and correlated with chest CT dated 07/24/2022. The heart is enlarged. The mitral annulus is densely calcified. The pulmonary vasculature is noncongested. Chronic interstitial thickening is similar to previous. The lungs and pleural spaces are clear. No pneumothorax is seen. The skeletal structures are osteopenic. The bony thorax is grossly intact. IMPRESSION: Cardiomegaly with no active disease in the chest. ACT 112: Negative or not required by law. Electronically signed by: Willam Ham M.D. 03/21/2023 11:[address] 03/21/23 11:29 CT SCAN OF THE BRAIN WITHOUT IV CONTRAST CLINICAL HISTORY: Dizziness. COMPARISON STUDY: CT of the brain dated 02/06/2023. MRI of the brain dated 03/16/2023. TECHNIQUE: Unenhanced axial CT scan of the brain is performed from the vertex to the skull base. A dose lowering technique was utilized adhering to the principles of ALARA. CT DOSE: 1384.02 mGy.cm FINDINGS: Brain parenchyma: There is age-related involutional change noting moderate subcortical and periventricular microangiopathic disease. There is no hemorrhage, mass effect, or evidence of acute territorial ischemia by CT criteria. Chatterjee-white matter differentiation is preserved. A chronic lacunar infarct is noted in the right cerebellar hemisphere. No extra-axial fluid collection is seen. Ventricles, sulci, cisterns: Prominent secondary to involutional change. Intracranial vasculature: There is atherosclerotic calcification of the cavernous carotid and vertebral arteries. Calvarium: Unremarkable. Sinuses and mastoids: The visualized paranasal sinuses are clear. The mastoid air cells are well pneumatized. Orbits: The bony orbits are grossly intact. There are bilateral ocular lens implants. IMPRESSION: There is no hemorrhage, mass effect, or evidence of acute territori al ischemia by CT criteria. ACT 112: Negative or not required by law. Electronically signed by: Willam Ham M.D. 03/21/2023 1:19 PM ECG Data Attestation: I personally reviewed and interpreted this ECG as follows: Indication: + nausea Rate (beats per minute): 67 Rhythm: + atrial fibrillation ECG Intervals/blocks: + Normal QT-c ECG ST segments: + Normal ST segments Additional Comments: QRS 76 MDM Narrative 1101: The patient was evaluated in room C8. A complete history and physical exam was performed Cardiac monitoring: An order was placed for continuous cardiac monitoring. The monitor shows a rate of 70 with atrial fibrilation rhythm interpreted by me 1400: Vital signs stable. Labs within normal limits with exception of magnesium of 1.2 and troponin of 29.5. Imaging within normal limits. Patient will be admitted to the [facility] magnesium repletion begun in the emergency department. Patient will be admitted to Dr. Kohler team Impression & Plan Hypomagnesemia Discharge Plan Visit Data Chief Complaint: Vomiting Stated Complaint: DENNIS REF, SYNCOPE, VOMITING, DIARRHEA ED Provider: Allen Bedolla Discharge Problem: Hypomagnesemia Patient Disposition: Admitted As Inpatient Discharge Instructions Interventions: ED Discharge Assessment Last Done: 03/21/23 17:17
[2023-03-21 11:50] LABS: Basophils # (auto) 0.02 K/uL (0-0.2); Basophils % (auto) 0.2 %; Eosinophils # (auto) 0.05 K/uL (0-0.50); Eosinophils % (auto) 0.6 %; Hematocrit (blood only) 33.8 % (37.0-47.0); Hemoglobin 11.4 g/dl (12.0-16.0); Immature Granulocytes # (auto) 0.03 K/uL (0.01-0.20); Immature Granulocytes % (auto) 0.3 %; Lymphocytes # (auto) 1.15 K/uL (1.2-3.4); Lymphocytes % (auto) 13.3 %; Mean Corpuscular Hemoglobin 30.1 pg (25.0-34.0); Mean Corpuscular Hgb Conc 33.7 g/dL (32.0-36.0); Mean Corpuscular Volume 89.2 fL (80.0-100.0); Mean Platelet Volume 8.4 fL (9.4-12.4); Monocytes # (auto) 0.45 K/uL (0.11-0.59); Monocytes % (auto) 5.2 %; Neutrophils # (auto) 6.95 K/uL (1.40-6.50); Neutrophils % (auto) 80.4 %; Platelet Count 223 K/uL (130-400); RDW Standard Deviation 48.6 fL (36.4-46.3); Red Blood Count 3.79 M/uL (4.20-5.40); White Blood Count 8.65 K/ul (4.8-10.8)
[2023-03-21 12:04] LABS: Alanine Aminotransferase 5 U/L (7-52); Albumin Level 3.6 gm/dl (3.4-5.0); Alkaline Phosphatase 91 U/L (34-104); Anion Gap 9 (3-11); Aspartate Aminotransferase 10 U/L (13-39); BUN Creatinine Ratio 24.3 (10-20); Bilirubin Direct 0.1 mg/dl (0-0.2); Bilirubin,Total 0.6 mg/dl (0.2-1.0); Blood Urea Nitrogen 18 mg/dl (6-23); Calcium 9.3 mg/dl (8.6-10.3); Carbon Dioxide 26 mmol/L (21-32); Chloride 102 mmol/L (98-107); Est GFR (African American) 83.2 ml/min; Est GFR (Non-African American) 71.8 ml/min; Glucose 134 mg/dl (70-99(Fasting)); Lipase 9 U/L (11-82); Magnesium 1.2 mg/dl (1.7-2.4); Potassium 3.7 mmol/L (3.5-5.1); Sodium 137 mmol/L (136-145); Total Protein 7.6 gm/dl (6.0-8.3)
[2023-03-21] MEDS: SODIUM CHLORIDE 0.9% 1000ML 1,000 ML IV SCH (12:04)
[2023-03-21 12:10] LABS: Troponin I High Sensitivity 29.5 pg/ml (0-14)
[2023-03-21 12:32] LABS: INR 1.1 (0.9-1.1); Partial Thromboplastin Time 27.1 Seconds (21.0-31.0); Prothrombin Time 11.9 Seconds (9.0-12.0)
[2023-03-21] MEDS: MAGNESIUM SULFATE / D5W 1 GM/100 ML BAG IV SCH ×5 (12:35→22:44)
[2023-03-21 12:42] LABS: Influenza A virus by PCR Negative (Neg); Influenza B virus by PCR Negative (Neg); RSV by PCR Negative (Neg); SARS CoV2 RNA(COVID-19) Ceph NEGATIVE (Negative)
[2023-03-21] MEDS ORDERED: OPTIRAY 320 500ml IV ONE (13:08)
--- NOTE | 2023-03-21 13:21 | CT Scan Report ---
CT SCAN OF THE BRAIN WITHOUT IV CONTRAST CLINICAL HISTORY: Dizziness. COMPARISON STUDY: CT of the brain dated 02/06/2023. MRI of the brain dated 03/16/2023. TECHNIQUE: Unenhanced axial CT scan of the brain is performed from the vertex to the skull base. A do se lowering technique was utilized adhering to the principles of ALARA. CT DOSE: 1384.02 mGy.cm FINDINGS: Brain parenchyma: There is age-related involutional change noting moderate subcortical and periventri cular microangiopathic disease. There is no hemorrhage, mass effect, or evidence of acute territorial ischemia by CT criteria. Chatterjee-white matter differentiation is preserved. A chronic lacunar infarct i s noted in the right cerebellar hemisphere. No extra-axial fluid collection is seen. Ventricles, sulci, cisterns: Prominent secondary to involutional change. Intracranial vasculature: There is atherosclerotic calcification of the cavernous carotid and vertebr al arteries. Calvarium: Unremarkable. Sinuses and mastoids: The visualized paranasal sinuses are clear. The mastoid air cells are well pneu matized. Orbits: The bony orbits are grossly intact. There are bilateral ocular lens implants. IMPRESSION: There is no hemorrhage, mass effect, or evidence of acute territorial ischemia by CT nadeem garcia. ACT 112: Negative or not required by law. Electronically signed by: Willam Ham M.D. 03/21/2023 1:19 PM
--- NOTE | 2023-03-21 13:27 | CT Scan Report ---
ABDOMEN AND PELVIS CT WITH IV CONTRAST HISTORY: Acute nodule vomiting vomitting TECHNIQUE: Multiaxial CT images of the abdomen and pelvis were performed following the IV administrat ion of 94 cc of Optiray, A dose lowering technique was utilized adhering to the principles of ALARA. COMPARISON STUDY: CT 07/24/2022 FINDINGS: Clear lung bases. Cardiomegaly with mitral annular calcifications. No pneumatosis or pneumo peritoneum. Unchanged appearance of the spleen which measures within the upper limits of normal in si ze. Mild generalized pancreatic atrophy with scattered parenchymal calcifications suggestive of chron ic pancreatitis. Unremarkable adrenal glands. Cholecystectomy with likely postsurgical biliary ductal dilation.. The study is degraded by respiratory motion artifact. 1.0 cm hypodense lesion of the live r on image 125 is unchanged and likely benign. Patency of the hepatic and portal veins. Subcentimeter hypodense foci of the kidneys measuring up to approximately 9 mm on the left are techni mireya too small to characterize however are suggestive of probable cysts. 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 Circumferential urinary bladder wall thickening with mucosal hypere lola, partial distention and perivesicular stranding. Uterus and adnexa are within normal limits. Athe rosclerosis of the aorta. There is no lymphadenopathy identified. Small hiatal hernia. Gastric wall t hickening with partial distention is similar to prior. Trace free pelvic fluid. No bowel obstruction or bowel wall thickening. No ascites or mesenteric inflammation. No CT evidence of acute appendicitis . Degenerative changes of the spine, pelvis and hips. Demineralized appearance of the bones. No acute f racture identified. IMPRESSION: 1. Findings suggestive of cystitis. Correlation with urinalysis recommended. 2. No bowel obstruction or bowel wall thickening. 3. Gastric wall thickening with partial distention is similar to prior. 4. Chronic findings as above. ACT 112: Negative or not required by law. The above report was generated using voice recognition software. It may contain grammatical, syntax o r spelling errors. Electronically signed by: Dane Adan M.D. 03/21/2023 1:25 PM
--- NOTE | 2023-03-21 13:36 | Electrocardiogram Report ---
Test Reason : Blood Pressure : / mmHG Vent. Rate : 067 BPM Atrial Rate : 000 BPM P-R Int : 000 ms QRS Dur : 076 ms QT Int : 414 ms P-R-T Axes : 000 011 032 degrees QTc Int : 437 ms Atrial fibrillation Abnormal ECG Confirmed by Joe tSeele ([id number]) on 03/21/2023 1:36:12 PM Referred By: Confirmed By:Hudson Steele
--- NOTE | 2023-03-21 14:39 | History & Physical Report ---
Date of Service March 21, 2023 Assessment & Plan (1) Diarrhea: (2) Urinary tract infection: (3) Gastroenteritis: Plan: Patient presents to the hospital with nausea vomiting diarrhea for 1 week. She also reports dizziness for 1 year Recent visit to PCP 2 days ago. MRI negative for stroke. Urinalysis to be infection CT abdomen pelvis done in admission shows findings suggestive of cystitis. Obtain GI PCR panel to rule out viral gastroenteritis Started on ceftriaxone after review of past urine culture results. Follow-up on urinalysis and urine culture, blood culture PT OT evaluation (4) Dizziness: Plan: Reports dizziness for 1 year Had 2 falls this year when she was trying to turn a corner. She walks with the help of walker MRI brain done as outpatient on March 16, 2023no acute intracranial finding. CT head without contrast this admissionno acute findings PT OT evaluation Monitor on telemetry (5) Hypomagnesemia: Plan: History of hypomagnesemia Labs reviewed; magnesium of 1.2. Likely related with PPI use. Replete with IV magnesium. Daily mag. Continue oral supplement. We will switch PPI to Pepcid. (6) Chronic atrial fibrillation: Plan: EKG reviewed on admission; A-fib with controlled ventricular rate. Continue on Eliquis and metoprolol (7) HTN (hypertension): Plan: Continue on metoprolol (8) Rheumatoid arthritis: Plan: Patient used to be on prednisone 5 mg. Not on any treatment presently. (9) Hyperlipidemia: Plan: Continue on statin (10) GERD (gastroesophageal reflux disease): Plan: PPI discontinued Start Pepcid due to recurrent hypomagnesemia (11) (HFpEF) heart failure with preserved ejection fraction: Plan: Elevated troponin likely due to demand ischemia No complaint of chest pain. EKG personally reviewed; A-fib with ventricular rate of 67; no significant ST or T wave changes. High sensitive troponin of 29; will trend. Echocardiogram from December 2021 shows EF of 65 to 69%. Plan Full code DVT prophylaxis Kera Called her daughter and updated. Answered questions/queries Dispolives alone in an apartment. Will obtain PT OT eval due to dizziness and fall. Time spent evaluating patient, direct bedside care, chart review, placing orders, interpretation of diagnostic studies, discussion with ED physician, patient, and family members, as well as other required patient management activities is 75 minutes Please note the above document was generated using voice recognition software. It may contain grammatical, syntax or spelling errors. Any formal questions or concerns about the content, text or information contained within the body of this dictation should be directly addressed to the provider for clarification History of Present Illness Chief Complaint: Nausea vomiting and diarrhea for 1 week Dizziness for several weeks Primary Care Provider: Lindsay Pollard MD History obtained from patient and records. Past medical history of chronic diastolic heart failure (EF 65 to 69%, TTE 2021), Afib on Eliquis, valvular heart disease (moderate MR, mild AR), pulmonary hypertension, hypertension, hyperlipidemia, rheumatoid arthritis on chronic steroid Rx, chronic anemia (baseline hemoglobin 10-11) Last admission in March 2022 with hypomagnesemia. Patient presents to the hospital with nausea vomiting and diarrhea for 1 week. Nausea and vomiting occurs every time she eats; containing food particles. No coffee-ground emesis. Diarrhea is watery; no mucus or blood. She reports multiple episodes during the day and night. She reports that she has been dizzy with multiple falls for past 2 years. She reports that she becomes unsteady when she is not using a walker; she reports that the falls happen when she is trying to turn a corner. She reports 2 falls in the last year. No loss of consciousness. She denies any fever or chills, abdominal pain, burning micturition or urgency. She does report increased urinary frequency. she is hard of hearing but denies any ear fullness. She lives alone in an apartment. She has help for 3 to 4 hours in the week. Her daughter lives 45 minutes away and helps her with grocery and food. She reports that her daughter has been going through chemotherapy which has resulted in a lot of stress. Her last primary care follow-up was 2 days ago. The urinalysis suggest signs of infection. She recently had MRI brain done as outpatient on March 16 for dizziness which was negative for any acute finding. Medical Historyas above Surgical History : Knee surgery surgery, breast lesion excision, cataract surgeries, ankle fracture surgery Family History : DM, heart disease Personal/Social history : Non-smoker, no EtOH intake, retired store employee, lives alone Allergies Allergy/AdvReac Type Severity Reaction Status Date / Time No Known Drug Allergies Allergy Unknown . Verified 03/21/23 14:53 nickel AdvReac Unknown PAIN WITH Verified 03/21/23 14:53 HARDWARE IN ANKLE --> REMOVED Home Medications Medication Instructions Recorded Confirmed Type omeprazole 40 mg capsule,delayed 40 mg PO QAM 01/15/19 03/21/23 History release metoprolol tartrate 25 mg tablet 25 mg PO BID 06/05/19 03/21/23 History cholecalciferol (vitamin D3) 25 25 mcg PO QAM 10/06/21 03/21/23 History mcg (1,000 unit) tablet (Vitamin D3) magnesium oxide 400 mg PO BID 10/06/21 03/21/23 History amoxicillin 500 mg capsule 2,000 mg PO UD PRN PRE DENTAL 12/13/21 03/21/23 History acetaminophen 325 mg capsule 650 mg PO Q6H PRN fever or pain 12/16/21 03/21/23 Rx (Tylenol) #60 caps atorvastatin 40 mg tablet 40 mg PO DAILY 01/09/22 03/21/23 History ondansetron HCl 8 mg tablet 8 mg PO Q8 PRN Nausea 01/09/22 03/21/23 History sucralfate 1 gram tablet 1 g PO AC 01/09/22 03/21/23 History apixaban 2.5 mg tablet (Eliquis) 2.5 mg PO BID #60 tabs 01/28/22 03/21/23 Rx allopurinol 100 mg tablet 200 mg PO DAILY 03/21/23 03/21/23 History fluticasone propionate 50 1 spray intranasal DAILY PRN 03/21/23 03/21/23 History mcg/actuation nasal Congestion spray,suspension Past Med/Surg History Medical History (HFpEF) heart failure with preserved ejection fraction Chronic atrial fibrillation GERD (gastroesophageal reflux disease) Hemorrhage following tonsillectomy and adenoidectomy History of anxiety History of cardioversion X 1 "OVER 30 YEARS AGO" History of IBS History of TMJ disorder HTN (hypertension) Hx of gout Hx of migraines Hx of vertigo Hyperlipidemia Hypomagnesemia assisted current use of anticoagulant Osteoarthritis Rheumatoid arthritis Splenic infarct Surgical History H/O wisdom tooth extraction History of cardiac cath NO STENTS, REMOTE HX History of cataract surgery RT/LEFT History of cholecystectomy History of colonoscopy History of conization of cervix History of esophagogastroduodenoscopy (EGD) History of open reduction and internal fixation (ORIF) procedure LEFT ANKLE (+HARDWARE REMOVED) History of total knee replacement LEFT Family History Father Family history of diabetes mellitus Mother Family history of diabetes mellitus Sister Family history of diabetes mellitus Other Heart disease No family history of adverse response to anesthesia Social History Smoking Status: Never smoker Second Hand Exposure: No; Do You Dip or Chew Tobacco: No; Hx Alcohol Use: No Hx Substance Use: No Preferred Language: Pashto Communication Ability: Effective Communication Ability Comment: hard of hearing Derrickman Helper Required: No Beliefs That Will Affect Care: None marital status: / Current Living Situation: Alone Current Living Situation Comment: [facility] current occupational status: retired Feels Safe at Home: Yes Assistive Devices: Cane Physical Exam Physical Exam: Constitutional: Alert orient x3. Not in distress. Ears; no wax seen; tympanic membrane intact. Respiratory: Bilateral basal breath sound Cardiovascular: Irregular, systolic murmur murmur, no edema Vessels: no JVD or carotid bruit Chest: normal inspection of chest Abdomen: normal bowel sounds, soft, nontender, no hepatosplenomegaly Musculoskeletal: no cyanosis or clubbing, extremities motor strength 5/5 Skin: no rashes, warm and dry normal turgor Neurologic: Grossly intact Psychiatric: A+Ox3, euthymic affect Lymphatic: no cervical or axillary lymphadenopathy : deferred Results & Data Results & Data Vital Signs (Past 12 Hours) Vital Signs Temp Pulse Pulse Resp BP BP Pulse Ox 03/21/23 12:00 66 14 183/99 H 95 03/21/23 11:48 03/21/23 11:47 68 03/21/23 10:58 36 C L 76 15 158/75 H 98 O2 Del Method 03/21/23 12:00 Room Air 03/21/23 11:48 Room Air 03/21/23 11:47 03/21/23 10:58 Room Air Laboratory Results Laboratory Results WBC 8.65 K/ul (4.8-10.8) 03/21/23 11:31 RBC 3.79 M/uL (4.20-5.40) L 03/21/23 11:31 Hgb 11.4 g/dl (12.0-16.0) L 03/21/23 11:31 Hct 33.8 % (37.0-47.0) L 03/21/23 11:31 MCV 89.2 fL (80.0-100.0) 03/21/23 11:31 MCH 30.1 pg (25.0-34.0) 03/21/23 11:31 MCHC 33.7 g/dL (32.0-36.0) 03/21/23 11:31 RDW Std Deviation 48.6 fL (36.4-46.3) H 03/21/23 11:31 RDW Coeff of Yue 15.0 % (11.5-14.5) H 03/21/23 11:31 Plt Count 223 K/uL (130-400) 03/21/23 11:31 MPV 8.4 fL (9.4-12.4) L 03/21/23 11:31 Immature Gran % (Auto) 0.3 % 03/21/23 11:31 Neut % (Auto) 80.4 % 03/21/23 11:31 Lymph % (Auto) 13.3 % 03/21/23 11:31 [place] % (Auto) 5.2 % 03/21/23 11:31 Eos % (Auto) 0.6 % 03/21/23 11:31 Baso % (Auto) 0.2 % 03/21/23 11:31 Neut # (Auto) 6.95 K/uL (1.40-6.50) H 03/21/23 11:31 Lymph # (Auto) 1.15 K/uL (1.2-3.4) L 03/21/23 11:31 [place] # (Auto) 0.45 K/uL (0.11-0.59) 03/21/23 11:31 Eos # (Auto) 0.05 K/uL (0-0.50) 03/21/23 11:31 Baso # (Auto) 0.02 K/uL (0-0.2) 03/21/23 11:31 Immature Gran # (Auto) 0.03 K/uL (0.01-0.20) 03/21/23 11:31 PT 11.9 Seconds (9.0-12.0) 03/21/23 11:31 INR 1.1 (0.9-1.1) 03/21/23 11:31 APTT 27.1 Seconds (21.0-31.0) 03/21/23 11:31 PTT Ratio 1.0 03/21/23 11:31 Sodium 137 mmol/L (136-145) 03/21/23 11:31 Potassium 3.7 mmol/L (3.5-5.1) 03/21/23 11:31 Chloride 102 mmol/L (98-107) 03/21/23 11:31 Carbon Dioxide 26 mmol/L (21-32) 03/21/23 11:31 Anion Gap 9 (3-11) 03/21/23 11:31 BUN 18 mg/dl (6-23) 03/21/23 11:31 Creatinine 0.74 mg/dl (0.6-1.2) 03/21/23 11:31 Est Cr Clr Drug Dosing Not Reportable 03/21/23 11:31 Est GFR ( Amer) 83.2 ml/min 03/21/23 11:31 Est GFR (Non-Af Amer) 71.8 ml/min 03/21/23 11:31 BUN/Creatinine Ratio 24.3 (10-20) H 03/21/23 11:31 Glucose 134 mg/dl (70-99(Fasting)) H 03/21/23 11:31 Calcium 9.3 mg/dl (8.6-10.3) 03/21/23 11:31 Magnesium 1.2 mg/dl (1.7-2.4) L 03/21/23 11:31 Total Bilirubin 0.6 mg/dl (0.2-1.0) 03/21/23 11:31 Direct Bilirubin 0.1 mg/dl (0-0.2) 03/21/23 11:31 AST 10 U/L (13-39) L 03/21/23 11:31 ALT 5 U/L (7-52) L 03/21/23 11:31 Alkaline Phosphatase 91 U/L (34-104) 03/21/23 11:31 Troponin I High Sens 29.5 pg/ml (0-14) H 03/21/23 11:31 Total Protein 7.6 gm/dl (6.0-8.3) 03/21/23 11:31 Albumin 3.6 gm/dl (3.4-5.0) 03/21/23 11:31 Lipase 9 U/L (11-82) L 03/21/23 11:31 Urine Color Yellow 03/21/23 Unknown Urine Appearance Cloudy (Clear) A 03/21/23 Unknown Urine pH 5.0 (4.5-7.5) 03/21/23 Unknown Ur Specific Whitt > 1.045 (1.000-1.030) H 03/21/23 Unknown Urine Protein 1+ (Negative) H 03/21/23 Unknown Urine Glucose (UA) Negative (Negative) 03/21/23 Unknown Urine Ketones Negative (Negative) 03/21/23 Unknown Urine Blood 1+ (Negative) H 03/21/23 Unknown Urine Nitrite Positive (Negative) A 03/21/23 Unknown Urine Bilirubin Negative (Negative) 03/21/23 Unknown Urine Urobilinogen Negative (Negative) 03/21/23 Unknown Ur Leukocyte Esterase 2+ (Negative) H 03/21/23 Unknown Urine WBC (Auto) >30 /hpf (0-5) H 03/21/23 Unknown Urine RBC (Auto) 5-10 /hpf (0-4) H 03/21/23 Unknown U Hyaline Cast (Auto) 1-5 /lpf (0-5) 03/21/23 Unknown U Epithel Cells (Auto) >30 /lpf (0-5) H 03/21/23 Unknown Urine Bacteria (Auto) 4+ (Negative) H 03/21/23 Unknown SARS-CoV-2 (PCR) NEGATIVE (Negative) 03/21/23 11:42 Influenza Type A (PCR) Negative (Neg) 03/21/23 11:42 Influenza Type B (PCR) Negative (Neg) 03/21/23 11:42 RSV (RT-PCR) Negative (Neg) 03/21/23 11:42 Impressions Abdomen/Pelvis CT 03/21/23 11:[address] WITH IV CONTRAST HISTORY: Acute nodule vomiting vomitting TECHNIQUE: Multiaxial CT images of the abdomen and pelvis were performed following the IV administration of 94 cc of Optiray, A dose lowering technique was utilized adhering to the principles of ALARA. COMPARISON STUDY: CT 07/24/2022 FINDINGS: Clear lung bases. Cardiomegaly with mitral annular calcifications. No pneumatosis or pneumoperitoneum. Unchanged appearance of the spleen which measures within the upper limits of normal in size. Mild generalized pancreatic atrophy with scattered parenchymal calcifications suggestive of chronic pancreatitis. Unremarkable adrenal glands. Cholecystectomy with likely postsurgical biliary ductal dilation.. The study is degraded by respiratory motion artifact. 1.0 cm hypodense lesion of the liver on image 125 is unchanged and likely benign. Patency of the hepatic and portal veins. Subcentimeter hypodense foci of the kidneys measuring up to approximately 9 mm on the left are technically too small to characterize however are suggestive of probable cysts. 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 Circumferential urinary bladder wall thickening with mucosal hyperemia, partial distention and perivesicular stranding. Uterus and adnexa are within normal limits. Atherosclerosis of the aorta. There is no lymphadenopathy identified. Small hiatal hernia. Gastric wall thickening with partial distention is similar to prior. Trace free pelvic fluid. No bowel obstruction or bowel wall thickenin g. No ascites or mesenteric inflammation. No CT evidence of acute appendicitis. Degenerative changes of the spine, pelvis and hips. Demineralized appearance of the bones. No acute fracture identified. IMPRESSION: 1. Findings suggestive of cystitis. Correlation with urinalysis recommended. 2. No bowel obstruction or bowel wall thickening. 3. Gastric wall thickening with partial distention is similar to prior. 4. Chronic findings as above. ACT 112: Negative or not required by law. The above report was generated using voice recognition software. It may contain grammatical, syntax or spelling errors. Electronically signed by: Dane Adan M.D. 03/21/2023 1:25 PM Chest X-Ray 03/21/23 11:03 SINGLE VIEW CHEST CLINICAL HISTORY: Vomiting. FINDINGS: An AP, portable, upright chest radiograph is compared to study dated 06/24/2022 and correlated with chest CT dated 07/24/2022. The heart is enlarged. The mitral annulus is densely calcified. The pulmonary vasculature is noncongested. Chronic interstitial thickening is similar to previous. The lungs and pleural spaces are clear. No pneumothorax is seen. The skeletal structures are osteopenic. The bony thorax is grossly intact. IMPRESSION: Cardiomegaly with no active disease in the chest. ACT 112: Negative or not required by law. Electronically signed by: Willam Ham M.D. 03/21/2023 11:[address] 03/21/23 11:29 CT SCAN OF THE BRAIN WITHOUT IV CONTRAST CLINICAL HISTORY: Dizziness. COMPARISON STUDY: CT of the brain dated 02/06/2023. MRI of the brain dated 03/16/2023. TECHNIQUE: Unenhanced axial CT scan of the brain is performed from the vertex to the skull base. A dose lowering technique was utilized adhering to the princip les of ALA. CT DOSE: 1384.02 mGy.cm FINDINGS: Brain parenchyma: There is age-related involutional change noting moderate subcortical and periventricular microangiopathic disease. There is no hemorrhage, mass effect, or evidence of acute territorial ischemia by CT criteria. Chatterjee-white matter differentiation is preserved. A chronic lacunar infarct is noted in the right cerebellar hemisphere. No extra-axial fluid collection is seen. Ventricles, sulci, cisterns: Prominent secondary to involutional change. Intracranial vasculature: There is atherosclerotic calcification of the cavernou s carotid and vertebral arteries. Calvarium: Unremarkable. Sinuses and mastoids: The visualized paranasal sinuses are clear. The mastoid air cells are well pneumatized. Orbits: The bony orbits are grossly intact. There are bilateral ocular lens implants. IMPRESSION: There is no hemorrhage, mass effect, or evidence of acute territorial ischemia by CT criteria. ACT 112: Negative or not required by law. Electronically signed by: Willam Ham M.D. 03/21/2023 1:19 PM (1) Diarrhea Diarrhea type: unspecified type Qualified Code(s): R19.7 - Diarrhea, unspecified
[2023-03-21 14:46] LABS: Appearance Urine Cloudy (Clear); Bacteria Urine Automated 4+ (Negative); Bilirubin Urine Negative (Negative); Blood Urine 1+ (Negative); Color Urine Yellow; Epithelial Cell Urine Auto >30 /lpf (0-5); Glucose Urine UA Negative (Negative); Ketones Urine Negative (Negative); Leukocyte Esterase Urine 2+ (Negative); Nitrite Urine Positive (Negative); Protein Urine 1+ (Negative); Specific Gravity Urine > 1.045 (1.000-1.030); Urobilinogen Urine Negative (Negative); WBC Urine Automated >30 /hpf (0-5)
[2023-03-21] MEDS ORDERED: FLUTICASONE PROPIONATE NA SPR 16 GM BTL PRN (17:18)
[2023-03-21] MEDS: cefTRIAXone SODIUM 2,000 MG in DEXTROSE 5% 50 ML IV SCH (19:05)
[2023-03-21] MEDS: METOPROLOL TARTRATE 25 MG TAB PO SCH (21:44)
[2023-03-21] MEDS: MAGNESIUM OXIDE 400 MG TAB PO SCH (21:44)
[2023-03-21] MEDS: APIXABAN 2.5 MG TAB PO SCH (21:58)
[2023-03-22] MEDS: SODIUM CHLORIDE 0.9% 1000ML 1,000 ML IV SCH ×2 (00:06→15:10)
[2023-03-22] MEDS: MELATONIN 3 MG TAB PO PRN ×2 (00:25→22:09)
[2023-03-22] MEDS ORDERED: hydrALAZINE HCL 20 MG/ML VIAL IV ONE (05:21)
[2023-03-22 07:50] LABS: Basophils # (auto) 0.02 K/uL (0-0.2); Basophils % (auto) 0.2 %; Eosinophils # (auto) 0.08 K/uL (0-0.50); Hematocrit (blood only) 30.3 % (37.0-47.0); Hemoglobin 9.9 g/dl (12.0-16.0); Immature Granulocytes # (auto) 0.04 K/uL (0.01-0.20); Immature Granulocytes % (auto) 0.5 %; Lymphocytes # (auto) 1.41 K/uL (1.2-3.4); Lymphocytes % (auto) 17.6 %; Mean Corpuscular Hemoglobin 29.5 pg (25.0-34.0); Mean Corpuscular Hgb Conc 32.7 g/dL (32.0-36.0); Mean Corpuscular Volume 90.2 fL (80.0-100.0); Mean Platelet Volume 8.1 fL (9.4-12.4); Monocytes # (auto) 0.44 K/uL (0.11-0.59); Monocytes % (auto) 5.5 %; Neutrophils # (auto) 6.02 K/uL (1.40-6.50); Neutrophils % (auto) 75.2 %; Platelet Count 187 K/uL (130-400); RDW Coefficient of Variation 15.1 % (11.5-14.5); RDW Standard Deviation 49.1 fL (36.4-46.3); Red Blood Count 3.36 M/uL (4.20-5.40); White Blood Count 8.01 K/ul (4.8-10.8)
[2023-03-22 08:07] LABS: Albumin Globulin Ratio 0.9 (0.9-2); Albumin Level 3.1 gm/dl (3.4-5.0); BUN Creatinine Ratio 21.8 (10-20); Bilirubin,Total 0.4 mg/dl (0.2-1.0); Calcium 8.9 mg/dl (8.6-10.3); Creatinine Clr Calc Pharmacy 52.5 ml/min; Est GFR (African American) 96.4 ml/min; Est GFR (Non-African American) 83.2 ml/min; Globulin 3.3 gm/dl (2.5-4.0); Magnesium 1.9 mg/dl (1.7-2.4); Potassium 3.4 mmol/L (3.5-5.1); Total Protein 6.4 gm/dl (6.0-8.3)
[2023-03-22] MEDS ORDERED: ATORVASTATIN 40 MG TAB PO SCH (09:00)
[2023-03-22] MEDS ORDERED: PANTOprazole 40 MG TAB PO SCH (09:00)
[2023-03-22] MEDS ORDERED: POTASSIUM CHLORIDE CRTAB 20 MEQ TABCR PO STA (09:07)
[2023-03-22] MEDS: allopurinoL 100 MG TAB PO SCH (10:21)
[2023-03-22] MEDS: FAMOTIDINE 40 MG TABLET PO SCH (10:21)
[2023-03-22] MEDS: CHOLECALCIFEROL 1,000 UNITS 25 MCG TAB PO SCH (10:21)
[2023-03-22] MEDS: METOPROLOL TARTRATE 25 MG TAB PO SCH ×2 (10:21→20:31)
[2023-03-22] MEDS: MAGNESIUM OXIDE 400 MG TAB PO SCH ×2 (10:21→20:31)
[2023-03-22] MEDS: APIXABAN 2.5 MG TAB PO SCH ×2 (11:05→20:32)
--- NOTE | 2023-03-22 15:30 | Hospitalist Progress Note ---
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 MRI negative for stroke. Urinalysis s/o infection CT abdomen pelvis done in admission shows findings suggestive of cystitis. c/w rocephin, f/u urine Cx results. no further N/V/D per pt. GI PCR panel appears not collected, will likely dc test given improvement. PT/OT eval. Dizziness: Reports dizziness for 1 year Had 2 falls this year when she was trying to turn a corner. She walks with the help of walker MRI brain done as outpatient on March 16, 2023no acute intracranial finding. CT head without contrast this admissionno acute findings PT OT evaluation Monitor on telemetry Hypomagnesemia: resolved. Likely demand ischemia: Troponin elevated at presentation likely secondary to ac sherley distress, EKG with no changes, continue telemetry monitoring, patient with no chest pain. Chronic atrial fibrillation: Admitting EKG reviewed; A-fib with controlled ventr icular rate. Continue on Eliquis and metoprolol Other chronic medical conditions: Resume home meds as able Hypertensioncontinue metoprolol bid, hydralazine prn, IVF dc'd, expect BP to drop. Rheumatoid arthritis, patient used to be on prednisone 5 Mg, not on any treatment presently. HLD pt's atorvastatin per her cardiology office upon OP chart review. Stopped on 03/12/23. GERDPPI discontinued due to hypomagnesemia, continue with Pepcid on discharge. HFpEFFebruary 2021 echo with EF of 65 to 69%. Stable. Full code DVT prophylaxis: Eliquis Dispo: PT/OT, likely discharge in next 1 to 2 days. Admission and Anticipated Discharge Date Admission Date: March 21, 2023 Subjective Patient seen and examined at bedside as a follow-up of likely gastroenteritis, urinary tract infections. Patient was lying in bed, getting IV fluid, NAD, on room air, reports no new acute event overnight, denies any further nausea or vomiting or diarrhea. Denies belly pain. Denies dizziness and weakness today. Reports feeling better today. Denies fever or chills or chest pain or sore throat or cough. Physical Exam Physical Exam: GENERAL: Alert and oriented x3. NAD, on RA. HEENT: No pallor, no icterus. Pupils equal, round and reactive to light. Oral mucosa moist. NECK: No JVD, no neck masses. HEART: S1 and S2 heard. irregular rate and rhythm. No murmur, no gallop. RESPIRATORY SYSTEM: Normal AP diameter. No accessory muscle use. No wheezing, no crackles. ABDOMEN: Soft, bowel sounds present, nontender, no distention. CENTRAL NERVOUS SYSTEM: No facial droop. Speech is clear. Obeys simple commands. Moves extremities. EXTREMITIES: No edema, no erythema seen. Results & Data Results & Data Vital Signs (Past 12 Hours) Vital Signs Temp Pulse Pulse Resp BP Pulse Ox O2 Del Method 03/22/23 11:29 36.5 C 116 H 18 186/81 H 94 Room Air 03/22/23 07:57 36.4 C L 57 L 16 171/84 H 96 Room Air 03/22/23 07:01 91 H 03/22/23 04:00 36.4 C L 76 18 181/79 H 94 Room Air
[2023-03-23] MEDS ORDERED: OLANZapine 10 MG/2.1 ML SDV IM STA (02:10)
[2023-03-23] MEDS: cefTRIAXone SODIUM 2,000 MG in DEXTROSE 5% 50 ML IV SCH ×2 (07:33→19:25)
[2023-03-23] MEDS ORDERED: OLANZapine 10 MG/2.1 ML SDV IM PRN ×2 (08:35→16:37)
[2023-03-23] MEDS: allopurinoL 100 MG TAB PO SCH (09:59)
[2023-03-23] MEDS: APIXABAN 2.5 MG TAB PO SCH ×2 (09:59→21:50)
[2023-03-23] MEDS: METOPROLOL TARTRATE 25 MG TAB PO SCH ×2 (09:59→21:50)
[2023-03-23] MEDS: hydrALAZINE HCL 20 MG/ML VIAL IV PRN ×2 (10:00→15:42)
[2023-03-23] MEDS: CHOLECALCIFEROL 1,000 UNITS 25 MCG TAB PO SCH (10:00)
[2023-03-23] MEDS: FAMOTIDINE 40 MG TABLET PO SCH (10:00)
[2023-03-23] MEDS: MAGNESIUM OXIDE 400 MG TAB PO SCH ×2 (10:00→21:49)
[2023-03-23 10:16] LABS: Hematocrit (blood only) 31.6 % (37.0-47.0); Hemoglobin 10.6 g/dl (12.0-16.0); Mean Corpuscular Hgb Conc 33.5 g/dL (32.0-36.0); Mean Corpuscular Volume 89.5 fL (80.0-100.0); Mean Platelet Volume 8.4 fL (9.4-12.4); Platelet Count 220 K/uL (130-400); RDW Coefficient of Variation 15.4 % (11.5-14.5); RDW Standard Deviation 49.8 fL (36.4-46.3); Red Blood Count 3.53 M/uL (4.20-5.40); White Blood Count 11.76 K/ul (4.8-10.8)
[2023-03-23 10:27] LABS: BUN Creatinine Ratio 12.5 (10-20); Calcium 9.1 mg/dl (8.6-10.3); Creatinine Clr Calc Pharmacy 45.2 ml/min; Est GFR (African American) 91.7 ml/min; Est GFR (Non-African American) 79.1 ml/min; Magnesium 1.4 mg/dl (1.7-2.4); Phosphorus 1.9 mg/dl (2.5-4.9); Potassium 3.6 mmol/L (3.5-5.1)
[2023-03-23] MEDS ORDERED: amLODIPine BESYLATE 5 MG TAB PO ONE (12:16)
--- NOTE | 2023-03-23 16:27 | Hospitalist Progress Note ---
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 MRI negative for stroke. Urinalysis s/o infection CT abdomen pelvis done in admission shows findings suggestive of cystitis. c/w rocephin, f/u urine Cx results - pansensitive klebsiella no further N/V/D PT/OT eval. Dizziness: Reports dizziness for 1 year Had 2 falls this year when she was trying to turn a corner. She walks with the help of walker MRI brain done as outpatient on March 16, 2023no acute intracranial finding. CT head without contrast this admissionno acute findings PT OT evaluation Monitor on telemetry Delirium: likely hosp induced on background of age and uti, delirium precaution, prn zyprexa. Hypomagnesemia: resolved. Likely demand ischemia: Troponin elevated at presentation likely secondary to acute distress, EKG with no changes, continue telemetry monitoring, patient with no chest pain. Hypertensioncontinue metoprolol bid, iv hydralazine prn, amlodipine and losartan added. BP remains high, could be contribution from her delirium and agitation as well. Chronic atrial fibrillation: Admitting EKG reviewed; A-fib with controlled ventricular rate. Continue on Eliquis and metoprolol Other chronic medical conditions: Resume home meds as able Rheumatoid arthritis, patient used to be on prednisone 5 Mg, not on any treatment presently. HLD pt's atorvastatin per her cardiology office upon OP chart review. Stopped on 03/12/23. GERDPPI discontinued due to hypomagnesemia, continue with Pepcid on discharge. HFpEFFebruary 2021 echo with EF of 65 to 69%. Stable. Full code DVT prophylaxis: Eliquis Dispo: PT/OT, likely will need rehab. spoke w/ dtr roddy pt lives alone and thinks will need help and hence she would be better with rehab for short term. Admission and Anticipated Discharge Date Admission Date: March 21, 2023 Subjective Patient seen and examined at bedside as a follow-up of likely gastroenteritis, urinary tract infections. Patient was lying in bed, NAD, on room air, was agitated overnight requiring zyprexa, oriented to self, per RN no further N/V/D. Pt eating ok. Pt denies any pain, ros n/a due to cognition status. Physical Exam Physical Exam: GENERAL: Alert and awake. NAD, on RA. HEENT: No pallor, no icterus. Pupils equal, round and reactive to light. Oral mucosa moist. NECK: No JVD, no neck masses. HEART: S1 and S2 heard. irregular rate and rhythm. No murmur, no gallop. RESPIRATORY SYSTEM: Normal AP diameter. No accessory muscle use. No wheezing, no crackles. ABDOMEN: Soft, bowel sounds present, nontender, no distention. CENTRAL NERVOUS SYSTEM: No facial droop. Speech is clear. Obeys simple commands. Moves extremities. EXTREMITIES: No edema, no erythema seen. Results & Data Results & Data Vital Signs (Past 12 Hours) Vital Signs Temp Pulse Pulse Resp BP Pulse Ox O2 Del Method 03/23/23 16:04 188/68 H 03/23/23 15:31 37.0 C 80 20 203/92 H 93 Room Air 03/23/23 11:42 36.6 C 77 18 183/73 H 96 Room Air 03/23/23 11:35 122 H 03/23/23 07:39 36.6 C 85 19 181/86 H 95 Room Air
[2023-03-23] MEDS ORDERED: hydrALAZINE HCL 25 MG TAB PO STA (16:40)
[2023-03-23] MEDS: LOSARTAN POTASSIUM 25 MG TAB PO SCH (21:49)
[2023-03-24 08:58] LABS: Hematocrit (blood only) 30.3 % (37.0-47.0); Hemoglobin 10.1 g/dl (12.0-16.0); Mean Corpuscular Hemoglobin 30.2 pg (25.0-34.0); Mean Corpuscular Hgb Conc 33.3 g/dL (32.0-36.0); Mean Corpuscular Volume 90.7 fL (80.0-100.0); Mean Platelet Volume 8.5 fL (9.4-12.4); Platelet Count 203 K/uL (130-400); RDW Coefficient of Variation 15.4 % (11.5-14.5); RDW Standard Deviation 50.4 fL (36.4-46.3); Red Blood Count 3.34 M/uL (4.20-5.40)
[2023-03-24 09:18] LABS: BUN Creatinine Ratio 12.7 (10-20); Creatinine Clr Calc Pharmacy 45.8 ml/min; Est GFR (African American) 92.2 ml/min; Est GFR (Non-African American) 79.5 ml/min; Magnesium 1.4 mg/dl (1.7-2.4); Phosphorus 3.2 mg/dl (2.5-4.9); Potassium 3.3 mmol/L (3.5-5.1)
[2023-03-24] MEDS: allopurinoL 100 MG TAB PO SCH (10:08)
[2023-03-24] MEDS: amLODIPine BESYLATE 5 MG TAB PO SCH (10:08)
[2023-03-24] MEDS: CHOLECALCIFEROL 1,000 UNITS 25 MCG TAB PO SCH (10:09)
[2023-03-24] MEDS: FAMOTIDINE 40 MG TABLET PO SCH (10:09)
[2023-03-24] MEDS: APIXABAN 2.5 MG TAB PO SCH ×2 (11:24→21:23)
[2023-03-24] MEDS: MAGNESIUM OXIDE 400 MG TAB PO SCH ×2 (11:24→21:23)
[2023-03-24] MEDS: METOPROLOL TARTRATE 25 MG TAB PO SCH ×2 (11:24→21:23)
[2023-03-24] MEDS ORDERED: POTASSIUM CHLORIDE CRTAB 20 MEQ TABCR PO STA (15:50)
--- NOTE | 2023-03-24 15:55 | Hospitalist Progress Note ---
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 She also reports dizziness for 1 year Recent visit to PCP 2 days ago SHELVER. MRI negative for stroke. Urinalysis s/o infection CT abdomen pelvis done in admission shows findings suggestive of cystitis. c/w rocephin, f/u urine Cx results - pansensitive klebsiella no further N/V/D PT/OT eval. Dizziness: Reports dizziness for 1 year Had 2 falls this year when she was trying to turn a corner. She walks with the help of walker MRI brain done as outpatient on March 16, 2023no acute intracranial finding. CT head without contrast this admissionno acute findings PT OT evaluation Monitor on telemetry Delirium: likely hosp induced on background of age and uti, delirium precaution, prn zyprexa. Hypomagnesemia: resolved. Likely demand ischemia: Troponin elevated at presentation likely secondary to acute distress, EKG with no changes, continue telemetry monitoring, patient with no chest pain. Hypertensioncontinue metoprolol bid, iv hydralazine prn, amlodipine and losartan added. BP remains getting better Chronic atrial fibrillation: Admitting EKG reviewed; A-fib with controlled vent ricular rate. Continue on Eliquis and metoprolol Other chronic medical conditions: Resume home meds as able Rheumatoid arthritis, patient used to be on prednisone 5 Mg, not on any treatment presently. HLD pt's atorvastatin per her cardiology office upon OP chart review. Stopped on 03/12/23. GERDPPI discontinued due to hypomagnesemia, continue with Pepcid on discharge. HFpEFFebruary 2021 echo with EF of 65 to 69%. Stable. Full code DVT prophylaxis: Eliquis Dispo: PT/OT, likely will need rehab. spoke w/ dtr roddy 03/23, pt lives alone and thinks will need help and hence she would be better with rehab for short term. Admission and Anticipated Discharge Date Admission Date: March 21, 2023 Subjective Patient seen and examined at bedside as a follow-up of likely gastroenteritis, urinary tract infections. Patient was lying in bed, NAD, on room air, was agitated overnight requiring zyprexa, oriented to self, no further N/V/D. Pt eating ok. Pt denies any pain, denies headache/weakness/fever/chest pain/dizziness or other ROS. Physical Exam Physical Exam: GENERAL: Alert and awake. NAD, on RA. HEENT: No pallor, no icterus. Pupils equal, round and reactive to light. Oral mucosa moist. NECK: No JVD, no neck masses. HEART: S1 and S2 heard. irregular rate and rhythm. No murmur, no gallop. RESPIRATORY SYSTEM: Normal AP diameter. No accessory muscle use. No wheezing, no crackles. ABDOMEN: Soft, bowel sounds present, nontender, no distention. CENTRAL NERVOUS SYSTEM: No facial droop. Speech is clear. Obeys simple commands. Moves extremities. EXTREMITIES: No edema, no erythema seen. Results & Data Results & Data Vital Signs (Past 12 Hours) Vital Signs Temp Pulse Pulse Resp BP Pulse Ox O2 Del Method 03/24/23 10:30 Room Air 03/24/23 11:27 36.4 C L 97 H 19 145/72 H 95 Room Air 03/24/23 07:28 77
[2023-03-24] MEDS: MAGNESIUM SULFATE / D5W 1 GM/100 ML BAG IV SCH ×2 (16:30→18:07)
[2023-03-24] MEDS: cefTRIAXone SODIUM 2,000 MG in DEXTROSE 5% 50 ML IV SCH (18:06)
[2023-03-24] MEDS: LOSARTAN POTASSIUM 25 MG TAB PO SCH (21:23)
[2023-03-25] MEDS: MELATONIN 3 MG TAB PO PRN ×2 (03:01→20:08)
[2023-03-25 07:46] LABS: BUN Creatinine Ratio 22.2 (10-20); Calcium 9.5 mg/dl (8.6-10.3); Creatinine Clr Calc Pharmacy 40.1 ml/min; Est GFR (African American) 86.1 ml/min; Est GFR (Non-African American) 74.3 ml/min; Magnesium 1.7 mg/dl (1.7-2.4); Phosphorus 3.3 mg/dl (2.5-4.9); Potassium 3.9 mmol/L (3.5-5.1)
[2023-03-25] MEDS: METOPROLOL TARTRATE 25 MG TAB PO SCH (08:45)
[2023-03-25] MEDS: CHOLECALCIFEROL 1,000 UNITS 25 MCG TAB PO SCH (08:45)
[2023-03-25] MEDS: amLODIPine BESYLATE 5 MG TAB PO SCH (08:45)
[2023-03-25] MEDS: MAGNESIUM OXIDE 400 MG TAB PO SCH ×2 (08:45→20:06)
[2023-03-25] MEDS: allopurinoL 100 MG TAB PO SCH (08:46)
[2023-03-25] MEDS: FAMOTIDINE 40 MG TABLET PO SCH (08:46)
[2023-03-25] MEDS: APIXABAN 2.5 MG TAB PO SCH ×2 (08:46→20:06)
[2023-03-25] MEDS ORDERED: carvediloL 6.25 MG TAB PO SCH (09:20)
--- NOTE | 2023-03-25 17:03 | Hospitalist Progress Note ---
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 MRI negative for stroke. Urinalysis s/o infection CT abdomen pelvis done in admission shows findings suggestive of cystitis. c/w rocephin, f/u urine Cx results - pansensitive klebsiella no further N/V/D PT/OT eval. Dizziness: Reports dizziness for 1 year Had 2 falls this year when she was trying to turn a corner. She walks with the help of walker MRI brain done as outpatient on March 16, 2023no acute intracranial finding. CT head without contrast this admissionno acute findings PT OT evaluation Monitor on telemetry Delirium: likely hosp induced on background of age and uti, delirium precaution, prn zyprexa. Hypomagnesemia: resolved. Likely demand ischemia: Troponin elevated at presentation likely secondary to acute distress, EKG with no changes, continue telemetry monitoring, patient with no chest pain. Hypertensioncontinue metoprolol bid --> to coreg bid, iv hydralazine prn, amlodipine and losartan added. BP getting better Chronic atrial fibrillation: Admitting EKG reviewed; A-fib with controlled ventricular rate. Continue on Eliquis and metoprolol Other chronic medical conditions: Resume home meds as able Rheumatoid arthritis, patient used to be on prednisone 5 Mg, not on any treatment presently. HLD pt's atorvastatin per her cardiology office upon OP chart review. Stopped on 03/12/23. GERDPPI discontinued due to hypomagnesemia, continue with Pepcid on discharge. HFpEFFebruary 2021 echo with EF of 65 to 69%. Stable. Full code DVT prophylaxis: Eliquis Dispo: PT/OT, likely will need rehab. stable medically. spoke w/ dtr roddy 03/23, pt lives alone and thinks will need help and hence she would be better with rehab for short term. Admission and Anticipated Discharge Date Admission Date: March 21, 2023 Subjective Patient seen and examined at bedside as a follow-up of likely gastroenteritis, urinary tract infections. Patient was Sitting up in chair, NAD, on room air, oriented x1, no further N/V/D. Pt eating ok. Pt denies any pain, denies headache/weakness/fever/chest pain/dizziness or other ROS. Physical Exam Physical Exam: GENERAL: Alert and awake. NAD, on RA. HEENT: No pallor, no icterus. Pupils equal, round and reactive to light. Oral mucosa moist. NECK: No JVD, no neck masses. HEART: S1 and S2 heard. irregular rate and rhythm. No murmur, no gallop. RESPIRATORY SYSTEM: Normal AP diameter. No accessory muscle use. No wheezing, no crackles. ABDOMEN: Soft, bowel sounds present, nontender, no distention. CENTRAL NERVOUS SYSTEM: No facial droop. Speech is clear. Obeys simple commands. Moves extremities. EXTREMITIES: No edema, no erythema seen. Results & Data Results & Data Vital Signs (Past 12 Hours) Vital Signs Temp Pulse Resp BP BP Pulse Ox O2 Del Method 03/25/23 14:43 36.5 C 74 18 145/80 H 97 Room Air 03/25/23 09:51 87 151/74 H 03/25/23 07:33 36.6 C 98 H 18 180/88 H 96 Room Air
[2023-03-25] MEDS: cefTRIAXone SODIUM 2,000 MG in DEXTROSE 5% 50 ML IV SCH (17:23)
[2023-03-25] MEDS: carvediloL 6.25 MG TAB PO SCH (17:34)
[2023-03-25] MEDS: LOSARTAN POTASSIUM 25 MG TAB PO SCH (20:06)
[2023-03-26] MEDS: amLODIPine BESYLATE 5 MG TAB PO SCH (09:08)
[2023-03-26] MEDS: FAMOTIDINE 40 MG TABLET PO SCH (09:08)
[2023-03-26] MEDS: APIXABAN 2.5 MG TAB PO SCH ×2 (09:08→21:00)
[2023-03-26] MEDS: MAGNESIUM OXIDE 400 MG TAB PO SCH ×2 (09:08→21:00)
[2023-03-26] MEDS: allopurinoL 100 MG TAB PO SCH (09:08)
[2023-03-26] MEDS: CHOLECALCIFEROL 1,000 UNITS 25 MCG TAB PO SCH (09:09)
[2023-03-26] MEDS: carvediloL 6.25 MG TAB PO SCH ×2 (09:09→16:19)
--- NOTE | 2023-03-26 15:50 | Hospitalist Progress Note ---
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 MRI negative for stroke. Urinalysis s/o infection CT abdomen pelvis done in admission shows findings suggestive of cystitis. urine Cx results - pansensitive klebsiella Continue on ceftriaxone; will complete therapy today. no further N/V/D PT/OT eval.; recommend rehab. Dizziness: Reports dizziness for 1 year Had 2 falls this year when she was trying to turn a corner. She walks with the help of walker MRI brain done as outpatient on March 16, 2023no acute intracranial finding. CT head without contrast this admissionno acute findings PT OT evaluation Monitor on telemetry Delirium: likely hosp induced on background of age and uti, delirium precaution, prn zyprexa. Hypomagnesemia: resolved. Likely demand ischemia: Troponin elevated at presentation likely secondary to acute distress, EKG with no changes, continue telemetry monitoring, patient with no chest pain. Hypertensionincrease amlodipine and losartan. Continue on Coreg. Chronic atrial fibrillation: Admitting EKG reviewed; A-fib with controlled ventricular rate. Continue on Eliquis and metoprolol Other chronic medical conditions: Resume home meds as able Rheumatoid arthritis, patient used to be on prednisone 5 Mg, not on any treatment presently. HLD pt's atorvastatin per her cardiology office upon OP chart review. Stopped on 03/12/23. GERDPPI discontinued due to hypomagnesemia, continue with Pepcid on discharge. HFpEFFebruary 2021 echo with EF of 65 to 69%. Stable. Full code DVT prophylaxis: Eliquis Dispo: PT/OT, will need rehab. Case management on board. Please note the above document was generated using voice recognition software. It may contain grammatical, syntax or spelling errors. Any formal questions or concerns about the content, text or information contained within the body of this dictation should be directly addressed to the provider for clarification Admission and Anticipated Discharge Date Admission Date: March 21, 2023 Subjective Patient seen and examined at bedside. She is sitting up on the chair; not in any distress. She denies any nausea or vomiting. Physical Exam Physical Exam: Constitutional: Alert orient x3. Not in distress. Ears; no wax seen; tympanic membrane intact. Respiratory: Bilateral basal breath sound Cardiovascular: Irregular, systolic murmur murmur, no edema Vessels: no JVD or carotid bruit Chest: normal inspection of chest Abdomen: normal bowel sounds, soft, nontender, no hepatosplenomegaly Musculoskeletal: no cyanosis or clubbing, extremities motor strength 5/5 Skin: no rashes, warm and dry normal turgor Neurologic: Grossly intact Psychiatric: A+Ox3, euthymic affect Lymphatic: no cervical or axillary lymphadenopathy : deferred Results & Data Results & Data Vital Signs (Past 12 Hours) Vital Signs Temp Pulse Resp BP Pulse Ox O2 Del Method 03/26/23 15:21 36.7 C 70 18 136/84 98 Room Air 03/26/23 08:00 Room Air 03/26/23 07:28 36.5 C 78 18 185/80 H 92 Room Air Laboratory Results Laboratory Results WBC 7.60 K/ul (4.8-10.8) 03/24/23 08:13 RBC 3.34 M/uL (4.20-5.40) L 03/24/23 08:13 Hgb 10.1 g/dl (12.0-16.0) L 03/24/23 08:13 Hct 30.3 % (37.0-47.0) L 03/24/23 08:13 MCV 90.7 fL (80.0-100.0) 03/24/23 08:13 MCH 30.2 pg (25.0-34.0) 03/24/23 08:13 MCHC 33.3 g/dL (32.0-36.0) 03/24/23 08:13 RDW Std Deviation 50.4 fL (36.4-46.3) H 03/24/23 08:13 RDW Coeff of Yue 15.4 % (11.5-14.5) H 03/24/23 08:13 Plt Count 203 K/uL (130-400) 03/24/23 08:13 MPV 8.5 fL (9.4-12.4) L 03/24/23 08:13 Immature Gran % (Auto) 0.5 % 03/22/23 07:23 Neut % (Auto) 75.2 % 03/22/23 07:23 Lymph % (Auto) 17.6 % 03/22/23 07:23 [place] % (Auto) 5.5 % 03/22/23 07:23 Eos % (Auto) 1.0 % 03/22/23 07: Baso % (Auto) 0.2 % 03/22/23 07: Neut # (Auto) 6.02 K/uL (1.40-6.50) 03/22/23 07: Lymph # (Auto) 1.41 K/uL (1.2-3.4) 03/22/23 07: [place] # (Auto) 0.44 K/uL (0.11-0.59) 03/22/23 07: Eos # (Auto) 0.08 K/uL (0-0.50) 03/22/23 07: Baso # (Auto) 0.02 K/uL (0-0.2) 03/22/23 07: Immature Gran # (Auto) 0.04 K/uL (0.01-0.20) 03/22/23 07:23 PT 11.9 Seconds (9.0-12.0) 03/21/23 11:31 INR 1.1 (0.9-1.1) 03/21/23 11:31 APTT 27.1 Seconds (21.0-31.0) 03/21/23 11:31 PTT Ratio 1.0 03/21/23 11:31 Sodium 138 mmol/L (136-145) 03/25/23 06:57 Potassium 3.9 mmol/L (3.5-5.1) 03/25/23 06:57 Chloride 104 mmol/L (98-107) 03/25/23 06:57 Carbon Dioxide 25 mmol/L (21-32) 03/25/23 06:57 Anion Gap 9 (3-11) 03/25/23 06:57 BUN 16 mg/dl (6-23) 03/25/23 06:57 Creatinine 0.72 mg/dl (0.6-1.2) 03/25/23 06:57 Est Cr Clr Drug Dosing 40.1 ml/min 03/25/23 06:57 Est GFR ( Amer) 86.1 ml/min 03/25/23 06:57 Est GFR (Non-Af Amer) 74.3 ml/min 03/25/23 06:57 BUN/Creatinine Ratio 22.2 (10-20) H 03/25/23 06:57 Glucose 140 mg/dl (70-99(Fasting)) H 03/25/23 06:57 Calcium 9.5 mg/dl (8.6-10.3) 03/25/23 06:57 Phosphorus 3.3 mg/dl (2.5-4.9) 03/25/23 06:57 Magnesium 1.7 mg/dl (1.7-2.4) 03/25/23 06:57 Total Bilirubin 0.4 mg/dl (0.2-1.0) 03/22/23 07:23 Direct Bilirubin 0.1 mg/dl (0-0.2) 03/21/23 11:31 AST 8 U/L (13-39) L 03/22/23 07:23 ALT 4 U/L (7-52) L 03/22/23 07:23 Alkaline Phosphatase 77 U/L (34-104) 03/22/23 07:23 Troponin I High Sens 31.7 pg/ml (0-14) H 03/21/23 18:24 Total Protein 6.4 gm/dl (6.0-8.3) 03/22/23 07:23 Albumin 3.1 gm/dl (3.4-5.0) L 03/22/23 07:23 Globulin 3.3 gm/dl (2.5-4.0) 03/22/23 07:23 Albumin/Globulin Ratio 0.9 (0.9-2) 03/22/23 07:23 Lipase 9 U/L (11-82) L 03/21/23 11:31 Urine Color Yellow 03/21/23 Unknown Urine Appearance Cloudy (Clear) A 03/21/23 Unknown Urine pH 5.0 (4.5-7.5) 03/21/23 Unknown Ur Specific Loiza > 1.045 (1.000-1.030) H 03/21/23 Unknown Urine Protein 1+ (Negative) H 03/21/23 Unknown Urine Glucose (UA) Negative (Negative) 03/21/23 Unknown Urine Ketones Negative (Negative) 03/21/23 Unknown Urine Blood 1+ (Negative) H 03/21/23 Unknown Urine Nitrite Positive (Negative) A 03/21/23 Unknown Urine Bilirubin Negative (Negative) 03/21/23 Unknown Urine Urobilinogen Negative (Negative) 03/21/23 Unknown Ur Leukocyte Esterase 2+ (Negative) H 03/21/23 Unknown Urine WBC (Auto) >30 /hpf (0-5) H 03/21/23 Unknown Urine RBC (Auto) 5-10 /hpf (0-4) H 03/21/23 Unknown U Hyaline Cast (Auto) 1-5 /lpf (0-5) 03/21/23 Unknown U Epithel Cells (Auto) >30 /lpf (0-5) H 03/21/23 Unknown Urine Bacteria (Auto) 4+ (Negative) H 03/21/23 Unknown SARS-CoV-2 (PCR) NEGATIVE (Negative) 03/21/23 11:42 Influenza Type A (PCR) Negative (Neg) 03/21/23 11:42 Influenza Type B (PCR) Negative (Neg) 03/21/23 11:42 RSV (RT-PCR) Negative (Neg) 03/21/23 11:42 Impressions Abdomen/Pelvis CT 03/21/23 11:[address] WITH IV CONTRAST HISTORY: Acute nodule vomiting vomitting TECHNIQUE: Multiaxial CT images of the abdomen and pelvis were performed following the IV administration of 94 cc of Optiray, A dose lowering technique was utilized adhering to the principles of ALARA. COMPARISON STUDY: CT 07/24/2022 FINDINGS: Clear lung bases. Cardiomegaly with mitral annular calcifications. No pneumatosis or pneumoperitoneum. Unchanged appearance of the spleen which measures within the upper limits of normal in size. Mild generalized pancreatic atrophy with scattered parenchymal calcifications suggestive of chronic pancreatitis. Unremarkable adrenal glands. Cholecystectomy with likely postsurgical biliary ductal dilation.. The study is degraded by respiratory motion artifact. 1.0 cm hypodense lesion of the liver on image 125 is unchanged and likely benign. Patency of the hepatic and portal veins. Subcentimeter hypodense foci of the kidneys measuring up to approximately 9 mm on the left are technically too small to characterize however are suggestive of probable cysts. 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 Circumferential urinary bladder wall thickening with mucosal hyperemia, partial distention and perivesicular stranding. Uterus and adnexa are within normal limits. Atherosclerosis of the aorta. There is no lymphadenopathy identified. Small hiatal hernia. Gastric wall thickening with partial distention is similar to prior. Trace free pelvic fluid. No bowel obstruction or bowel wall thickening. No ascites or mesenteric inflammation. No CT evidence of acute appendicitis. Degenerative changes of the spine, pelvis and hips. Demineralized appearance of the bones. No acute fracture identified. IMPRESSION: 1. Findings suggestive of cystitis. Correlation with urinalysis recommended. 2. No bowel obstruction or bowel wall thickening. 3. Gastric wall thickening with partial distention is similar to prior. 4. Chronic findings as above. ACT 112: Negative or not required by law. The above report was generated using voice recognition software. It may contain grammatical, syntax or spelling errors. Electronically signed by: Dane Adan M.D. 03/21/2023 1:25 PM Chest X-Ray 03/21/23 11:03 SINGLE VIEW CHEST CLINICAL HISTORY: Vomiting. FINDINGS: An AP, portable, upright chest radiograph is compared to study dated 06/24/2022 and correlated with chest CT dated 07/24/2022. The heart is enlarged. The mitral annulus is densely calcified. The pulmonary vasculature is noncongested. Chronic interstitial thickening is similar to previous. The lungs and pleural spaces are clear. No pneumothorax is seen. The skeletal structures are osteopenic. The bony thorax is grossly intact. IMPRESSION: Cardiomegaly with no active disease in the chest. ACT 112: Negative or not required by law. Electronically signed by: Willam Ham M.D. 03/21/2023 11:[address] 03/21/23 11:29 CT SCAN OF THE BRAIN WITHOUT IV CONTRAST CLINICAL HISTORY: Dizziness. COMPARISON STUDY: CT of the brain dated 02/06/2023. MRI of the brain dated 03/16/2023. TECHNIQUE: Unenhanced axial CT scan of the brain is performed from the vertex to the skull base. A dose lowering technique was utilized adhering to the principles of ALARA. CT DOSE: 1384.02 mGy.cm FINDINGS: Brain parenchyma: There is age-related involutional change noting moderate subcortical and periventricular microangiopathic disease. There is no hemorrhage, mass effect, or evidence of acute territorial ischemia by CT criteria. Chatterjee-white matter differentiation is preserved. A chronic lacunar infarct is noted in the right cerebellar hemisphere. No extra-axial fluid collection is seen. Ventricles, sulci, cisterns: Prominent secondary to involutional change. Intracranial vasculature: There is atherosclerotic calcification of the cavernous carotid and vertebral arteries. Calvarium: Unremarkable. Sinuses and mastoids: The visualized paranasal sinuses are clear. The mastoid air cells are well pneumatized. Orbits: The bony orbits are grossly intact. There are bilateral ocular lens implants. IMPRESSION: There is no hemorrhage, mass effect, or evidence of acute territorial ischemia by CT criteria. ACT 112: Negative or not required by law. Electronically signed by: Willam Ham M.D. 03/21/2023 1:19 PM
[2023-03-26] MEDS: ONDANSETRON INJ 2 MG/ML 2 ML VIAL IV PRN (17:47)
[2023-03-26] MEDS: MELATONIN 3 MG TAB PO PRN (21:01)
[2023-03-26] MEDS: LOSARTAN POTASSIUM 50 MG TAB PO SCH (21:01)
[2023-03-27 07:06] LABS: Basophils # (auto) 0.03 K/uL (0-0.2); Basophils % (auto) 0.4 %; Eosinophils % (auto) 2.9 %; Hematocrit (blood only) 33.7 % (37.0-47.0); Immature Granulocytes # (auto) 0.04 K/uL (0.01-0.20); Immature Granulocytes % (auto) 0.6 %; Mean Corpuscular Hemoglobin 29.8 pg (25.0-34.0); Mean Corpuscular Hgb Conc 32.6 g/dL (32.0-36.0); Mean Corpuscular Volume 91.3 fL (80.0-100.0); Mean Platelet Volume 8.6 fL (9.4-12.4); Monocytes # (auto) 0.63 K/uL (0.11-0.59); Monocytes % (auto) 9.1 %; Platelet Count 248 K/uL (130-400); RDW Coefficient of Variation 14.8 % (11.5-14.5); Red Blood Count 3.69 M/uL (4.20-5.40)
[2023-03-27 07:30] LABS: BUN Creatinine Ratio 27.3 (10-20); Calcium 9.5 mg/dl (8.6-10.3); Creatinine Clr Calc Pharmacy 43.7 ml/min; Est GFR (African American) 90.8 ml/min; Est GFR (Non-African American) 78.3 ml/min; Magnesium 1.6 mg/dl (1.7-2.4); Potassium 4.1 mmol/L (3.5-5.1)
[2023-03-27] MEDS: amLODIPine BESYLATE 5 MG TAB PO SCH (08:44)
[2023-03-27] MEDS: allopurinoL 100 MG TAB PO SCH (08:45)
[2023-03-27] MEDS: APIXABAN 2.5 MG TAB PO SCH ×2 (08:45→21:04)
[2023-03-27] MEDS: CHOLECALCIFEROL 1,000 UNITS 25 MCG TAB PO SCH (08:45)
[2023-03-27] MEDS: MAGNESIUM OXIDE 400 MG TAB PO SCH ×2 (08:45→21:04)
[2023-03-27] MEDS: carvediloL 6.25 MG TAB PO SCH ×2 (08:45→16:37)
[2023-03-27] MEDS: FAMOTIDINE 40 MG TABLET PO SCH (08:45)
--- NOTE | 2023-03-27 13:47 | Hospitalist Progress Note ---
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 MRI negative for stroke. Urinalysis s/o infection CT abdomen pelvis done in admission shows findings suggestive of cystitis. urine Cx results - pansensitive klebsiella Completed antibiotic course. no further N/V/D PT/OT eval.; recommend rehab. Dizziness: Reports dizziness for 1 year Had 2 falls this year when she was trying to turn a corner. She walks with the help of walker MRI brain done as outpatient on March 16, 2023no acute intracranial finding. CT head without contrast this admissionno acute findings PT OT evaluation Monitor on telemetry Delirium: likely hosp induced on background of age and uti, delirium precaution, prn zyprexa. Hypomagnesemia: resolved. Likely demand ischemia: Troponin elevated at presentation likely secondary to acute distress, EKG with no changes, continue telemetry monitoring, patient with no chest pain. Hypertensionincrease amlodipine and losartan. Continue on Coreg. Chronic atrial fibrillation: Admitting EKG reviewed; A-fib with controlled ventricular rate. Continue on Eliquis and metoprolol Other chronic medical conditions: Resume home meds as able Rheumatoid arthritis, patient used to be on prednisone 5 Mg, not on any treatment presently. HLD pt's atorvastatin per her cardiology office upon OP chart review. Stopped on 03/12/23. GERDPPI discontinued due to hypomagnesemia, continue with Pepcid on discharge. HFpEFFebruary 2021 echo with EF of 65 to 69%. Stable. Full code DVT prophylaxis: Eliquis Dispo: PT/OT, will need rehab. Case management on board. Please note the above document was generated using voice recognition software. It may contain grammatical, syntax or spelling errors. Any formal questions or concerns about the content, text or information contained within the body of this dictation should be directly addressed to the provider for clarification Admission and Anticipated Discharge Date Admission Date: March 21, 2023 Subjective Patient seen and examined at bedside. Patient is sitting up on the chair. Not in any distress. Denies nausea, vomiting. Review of Systems Review of Systems: All systems reviewed & are unremarkable except as noted in Subjective Physical Exam Physical Exam: Constitutional: Alert orient x3. Not in distress. Ears; no wax seen; tympanic membrane intact. Respiratory: Bilateral basal breath sound Cardiovascular: Irregular, systolic murmur murmur, no edema Vessels: no JVD or carotid bruit Chest: normal inspection of chest Abdomen: normal bowel sounds, soft, nontender, no hepatosplenomegaly Musculoskeletal: no cyanosis or clubbing, extremities motor strength 5/5 Skin: no rashes, warm and dry normal turgor Neurologic: Grossly intact Psychiatric: A+Ox3, euthymic affect Lymphatic: no cervical or axillary lymphadenopathy : deferred Results & Data Results & Data Vital Signs (Past 12 Hours) Vital Signs Temp Pulse Resp BP Pulse Ox O2 Del Method 03/27/23 08:56 36.4 C L 91 H 16 133/71 97 Room Air Laboratory Results Laboratory Results WBC 6.90 K/ul (4.8-10.8) 03/27/23 06:20 RBC 3.69 M/uL (4.20-5.40) L 03/27/23 06:20 Hgb 11.0 g/dl (12.0-16.0) L 03/27/23 06:20 Hct 33.7 % (37.0-47.0) L 03/27/23 06:20 MCV 91.3 fL (80.0-100.0) 03/27/23 06:20 MCH 29.8 pg (25.0-34.0) 03/27/23 06:20 MCHC 32.6 g/dL (32.0-36.0) 03/27/23 06:20 RDW Std Deviation 50.0 fL (36.4-46.3) H 03/27/23 06:20 RDW Coeff of Yue 14.8 % (11.5-14.5) H 03/27/23 06:20 Plt Count 248 K/uL (130-400) 03/27/23 06:20 MPV 8.6 fL (9.4-12.4) L 03/27/23 06:20 Immature Gran % (Auto) 0.6 % 03/27/23 06:20 Neut % (Auto) 58.0 % 03/27/23 06:20 Lymph % (Auto) 29.0 % 03/27/23 06:20 [place] % (Auto) 9.1 % 03/27/23 06:20 Eos % (Auto) 2.9 % 03/27/23 06:20 Baso % (Auto) 0.4 % 03/27/23 06:20 Neut # (Auto) 4.00 K/uL (1.40-6.50) 03/27/23 06:20 Lymph # (Auto) 2.00 K/uL (1.2-3.4) 03/27/23 06:20 [place] # (Auto) 0.63 K/uL (0.11-0.59) H 03/27/23 06:20 Eos # (Auto) 0.20 K/uL (0-0.50) 03/27/23 06:20 Baso # (Auto) 0.03 K/uL (0-0.2) 03/27/23 06:20 Immature Gran # (Auto) 0.04 K/uL (0.01-0.20) 03/27/23 06:20 PT 11.9 Seconds (9.0-12.0) 03/21/23 11:31 INR 1.1 (0.9-1.1) 03/21/23 11:31 APTT 27.1 Seconds (21.0-31.0) 03/21/23 11:31 PTT Ratio 1.0 03/21/23 11:31 Sodium 136 mmol/L (136-145) 03/27/23 06:20 Potassium 4.1 mmol/L (3.5-5.1) 03/27/23 06:20 Chloride 100 mmol/L (98-107) 03/27/23 06:20 Carbon Dioxide 31 mmol/L (21-32) 03/27/23 06:20 Anion Gap 5 (3-11) 03/27/23 06:20 BUN 18 mg/dl (6-23) 03/27/23 06:20 Creatinine 0.66 mg/dl (0.6-1.2) 03/27/23 06:20 Est Cr Clr Drug Dosing 43.7 ml/min 03/27/23 06:20 Est GFR ( Amer) 90.8 ml/min 03/27/23 06:20 Est GFR (Non-Af Amer) 78.3 ml/min 03/27/23 06:20 BUN/Creatinine Ratio 27.3 (10-20) H 03/27/23 06:20 Glucose 121 mg/dl (70-99(Fasting)) H 03/27/23 06:20 Calcium 9.5 mg/dl (8.6-10.3) 03/27/23 06:20 Phosphorus 3.3 mg/dl (2.5-4.9) 03/25/23 06:57 Magnesium 1.6 mg/dl (1.7-2.4) L 03/27/23 06:20 Total Bilirubin 0.4 mg/dl (0.2-1.0) 03/22/23 07: Direct Bilirubin 0.1 mg/dl (0-0.2) 03/21/23 11:31 AST 8 U/L (13-39) L 03/22/23 07: ALT 4 U/L (7-52) L 03/22/23 07:23 Alkaline Phosphatase 77 U/L (34-104) 03/22/23 07: Troponin I High Sens 31.7 pg/ml (0-14) H 03/21/23 18:24 Total Protein 6.4 gm/dl (6.0-8.3) 03/22/23 07:23 Albumin 3.1 gm/dl (3.4-5.0) L 03/22/23 07:23 Globulin 3.3 gm/dl (2.5-4.0) 03/22/23 07:23 Albumin/Globulin Ratio 0.9 (0.9-2) 03/22/23 07: Lipase 9 U/L (11-82) L 03/21/23 11:31 Urine Color Yellow 03/21/23 Unknown Urine Appearance Cloudy (Clear) A 03/21/23 Unknown Urine pH 5.0 (4.5-7.5) 03/21/23 Unknown Ur Specific [place] > 1.045 (1.000-1.030) H 03/21/23 Unknown Urine Protein 1+ (Negative) H 03/21/23 Unknown Urine Glucose (UA) Negative (Negative) 03/21/23 Unknown Urine Ketones Negative (Negative) 03/21/23 Unknown Urine Blood 1+ (Negative) H 03/21/23 Unknown Urine Nitrite Positive (Negative) A 03/21/23 Unknown Urine Bilirubin Negative (Negative) 03/21/23 Unknown Urine Urobilinogen Negative (Negative) 03/21/23 Unknown Ur Leukocyte Esterase 2+ (Negative) H 03/21/23 Unknown Urine WBC (Auto) >30 /hpf (0-5) H 03/21/23 Unknown Urine RBC (Auto) 5-10 /hpf (0-4) H 03/21/23 Unknown U Hyaline Cast (Auto) 1-5 /lpf (0-5) 03/21/23 Unknown U Epithel Cells (Auto) >30 /lpf (0-5) H 03/21/23 Unknown Urine Bacteria (Auto) 4+ (Negative) H 03/21/23 Unknown SARS-CoV-2 (PCR) NEGATIVE (Negative) 03/21/23 11:42 Influenza Type A (PCR) Negative (Neg) 03/21/23 11:42 Influenza Type B (PCR) Negative (Neg) 03/21/23 11:42 RSV (RT-PCR) Negative (Neg) 03/21/23 11:42 Impressions Abdomen/Pelvis CT 03/21/23 11:[address] WITH IV CONTRAST HISTORY: Acute nodule vomiting vomitting TECHNIQUE: Multiaxial CT images of the abdomen and pelvis were performed following the IV administration of 94 cc of Optiray, A dose lowering technique was utilized adhering to the principles of ALARA. COMPARISON STUDY: CT 07/24/2022 FINDINGS: Clear lung bases. Cardiomegaly with mitral annular calcifications. No pneumatosis or pneumoperitoneum. Unchanged appearance of the spleen which measures within the upper limits of normal in size. Mild generalized pancreatic atrophy with scattered parenchymal calcifications suggestive of chronic pancreatitis. Unremarkable adrenal glands. Cholecystectomy with likely postsurgical biliary ductal dilation.. The study is degraded by respiratory motion artifact. 1.0 cm hypodense lesion of the liver on image 125 is unchanged and likely benign. Patency of the hepatic and portal veins. Subcentimeter hypodense foci of the kidneys measuring up to approximately 9 mm on the left are technically too small to characterize however are suggestive of probable cysts. 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 Circumferential urinary bladder wall thickening with mucosal hyperemia, partial distention and perivesicular stranding. Uterus and adnexa are within normal limits. Atherosclerosis of the aorta. There is no lymphadenopathy identified. Small hiatal hernia. Gastric wall thickening with partial distention is similar to prior. Trace free pelvic fluid. No bowel obstruction or bowel wall thickening. No ascites or mesenteric inflammation. No CT evidence of acute appendicitis. Degenerative changes of the spine, pelvis and hips. Demineralized appearance of the bones. No acute fracture identified. IMPRESSION: 1. Findings suggestive of cystitis. Correlation with urinalysis recommended. 2. No bowel obstruction or bowel wall thickening. 3. Gastric wall thickening with partial distention is similar to prior. 4. Chronic findings as above. ACT 112: Negative or not required by law. The above report was generated using voice recognition software. It may contain grammatical, syntax or spelling errors. Electronically signed by: Dane Adan M.D. 03/21/2023 1:25 PM Chest X-Ray 03/21/23 11:03 SINGLE VIEW CHEST CLINICAL HISTORY: Vomiting. FINDINGS: An AP, portable, upright chest radiograph is compared to study dated 06/24/2022 and correlated with chest CT dated 07/24/2022. The heart is enlarged. The mitral annulus is densely calcified. The pulmonary vasculature is noncongested. Chronic interstitial thickening is similar to previous. The lungs and pleural spaces are clear. No pneumothorax is seen. The skeletal structures are osteopenic. The bony thorax is grossly intact. IMPRESSION: Cardiomegaly with no active disease in the chest. ACT 112: Negative or not required by law. Electronically signed by: Willam Ham M.D. 03/21/2023 11:[address] 03/21/23 11:29 CT SCAN OF THE BRAIN WITHOUT IV CONTRAST CLINICAL HISTORY: Dizziness. COMPARISON STUDY: CT of the brain dated 02/06/2023. MRI of the brain dated 03/16/2023. TECHNIQUE: Unenhanced axial CT scan of the brain is performed from the vertex to the skull base. A dose lowering technique was utilized adhering to the principles of ALARA. CT DOSE: 1384.02 mGy.cm FINDINGS: Brain parenchyma: There is age-related involutional change noting moderate subcortical and periventricular microangiopathic disease. There is no hemorrhage, mass effect, or evidence of acute territorial ischemia by CT criteria. Chatterjee-white matter differentiation is preserved. A chronic lacunar infarct is noted in the right cerebellar hemisphere. No extra-axial fluid collection is seen. Ventricles, sulci, cisterns: Prominent secondary to involutional change. Intracranial vasculature: There is atherosclerotic calcification of the cavernous carotid and vertebral arteries. Calvarium: Unremarkable. Sinuses and mastoids: The visualized paranasal sinuses are clear. The mastoid air cells are well pneumatized. Orbits: The bony orbits are grossly intact. There are bilateral ocular lens implants. IMPRESSION: There is no hemorrhage, mass effect, or evidence of acute territorial ischemia by CT criteria. ACT 112: Negative or not required by law. Electronically signed by: Willam Ham M.D. 03/21/2023 1:19 PM
[2023-03-27] MEDS: ONDANSETRON INJ 2 MG/ML 2 ML VIAL IV PRN (16:36)
[2023-03-27] MEDS: MELATONIN 3 MG TAB PO PRN (21:03)
[2023-03-27] MEDS: ACETAMINOPHEN 325 MG TAB PO PRN (21:03)
[2023-03-27] MEDS: LOSARTAN POTASSIUM 50 MG TAB PO SCH (21:04)
[2023-03-28] MEDS: MAGNESIUM OXIDE 400 MG TAB PO SCH ×2 (09:16→21:12)
[2023-03-28] MEDS: APIXABAN 2.5 MG TAB PO SCH ×2 (09:16→21:12)
[2023-03-28] MEDS: allopurinoL 100 MG TAB PO SCH (09:16)
[2023-03-28] MEDS: carvediloL 6.25 MG TAB PO SCH ×2 (09:16→17:51)
[2023-03-28] MEDS: FAMOTIDINE 40 MG TABLET PO SCH (09:16)
[2023-03-28] MEDS: CHOLECALCIFEROL 1,000 UNITS 25 MCG TAB PO SCH (09:16)
[2023-03-28] MEDS: amLODIPine BESYLATE 5 MG TAB PO SCH (09:16)
[2023-03-28] MEDS: ONDANSETRON INJ 2 MG/ML 2 ML VIAL IV PRN (09:46)
--- NOTE | 2023-03-28 16:12 | Hospitalist Progress Note ---
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 MRI negative for stroke. Urinalysis s/o infection CT abdomen pelvis done in admission shows findings suggestive of cystitis. urine Cx results - pansensitive klebsiella Completed antibiotic course. no further N/V/D PT/OT eval.; recommend rehab. Case management on board. Dizziness: Reports dizziness for 1 year Had 2 falls this year when she was trying to turn a corner. She walks with the help of walker MRI brain done as outpatient on March 16, 2023no acute intracranial finding. CT head without contrast this admissionno acute findings PT OT evaluation Monitor on telemetry Delirium: likely hosp induced on background of age and uti, delirium precaution, prn zyprexa. Hypomagnesemia: resolved. Likely demand ischemia: Troponin elevated at presentation likely secondary to acute distress, EKG with no changes, patient with no chest pain. Hypertensionblood pressure reviewed personally. Increase amlodipine and losartan. Continue on Coreg. Chronic atrial fibrillation: Admitting EKG reviewed; A-fib with controlled ventricular rate. Continue on Eliquis and metoprolol Other chronic medical conditions: Resume home meds as able Rheumatoid arthritis, patient used to be on prednisone 5 Mg, not on any treatment presently. HLD pt's atorvastatin per her cardiology office upon OP chart review. Stopped on 03/12/23. GERDPPI discontinued due to hypomagnesemia, continue with Pepcid on discharge. HFpEFFebruary 2021 echo with EF of 65 to 69%. Stable. Full code DVT prophylaxis: Eliquis Dispo: PT/OT, will need rehab. Case management on board. Please note the above document was generated using voice recognition software. It may contain grammatical, syntax or spelling errors. Any formal questions or concerns about the content, text or information contained within the body of this dictation should be directly addressed to the provider for clarification Admission and Anticipated Discharge Date Admission Date: March 21, 2023 Subjective Patient seen and examined at bedside. She is comfortably sitting up on the bed; not in any distress. She reports occasional nausea. Review of Systems Review of Systems: All systems reviewed & are unremarkable except as noted in Subjective Physical Exam Physical Exam: Constitutional: Alert orient x self and place.. Not in distress. Ears; no wax seen; tympanic membrane intact. Respiratory: Bilateral basal breath sound Cardiovascular: Irregular, systolic murmur murmur, no edema Vessels: no JVD or carotid bruit Chest: normal inspection of chest Abdomen: normal bowel sounds, soft, nontender, no hepatosplenomegaly Musculoskeletal: no cyanosis or clubbing, extremities motor strength 5/5 Skin: no rashes, warm and dry normal turgor Neurologic: Grossly intact Psychiatric: Alert orient x self and place., euthymic affect Results & Data Results & Data Vital Signs (Past 12 Hours) Vital Signs Temp Pulse Resp BP Pulse Ox O2 Del Method 03/28/23 08:20 Room Air 03/28/23 15:52 36.4 C L 76 18 150/68 H 95 Room Air 03/28/23 08:45 36.6 C 85 18 116/65 98 Room Air Laboratory Results Laboratory Results WBC 6.90 K/ul (4.8-10.8) 03/27/23 06:20 RBC 3.69 M/uL (4.20-5.40) L 03/27/23 06:20 Hgb 11.0 g/dl (12.0-16.0) L 03/27/23 06:20 Hct 33.7 % (37.0-47.0) L 03/27/23 06:20 MCV 91.3 fL (80.0-100.0) 03/27/23 06:20 MCH 29.8 pg (25.0-34.0) 03/27/23 06:20 MCHC 32.6 g/dL (32.0-36.0) 03/27/23 06:20 RDW Std Deviation 50.0 fL (36.4-46.3) H 03/27/23 06:20 RDW Coeff of Yue 14.8 % (11.5-14.5) H 03/27/23 06:20 Plt Count 248 K/uL (130-400) 03/27/23 06:20 MPV 8.6 fL (9.4-12.4) L 03/27/23 06:20 Immature Gran % (Auto) 0.6 % 03/27/23 06:20 Neut % (Auto) 58.0 % 03/27/23 06:20 Lymph % (Auto) 29.0 % 03/27/23 06:20 [place] % (Auto) 9.1 % 03/27/23 06:20 Eos % (Auto) 2.9 % 03/27/23 06:20 Baso % (Auto) 0.4 % 03/27/23 06:20 Neut # (Auto) 4.00 K/uL (1.40-6.50) 03/27/23 06:20 Lymph # (Auto) 2.00 K/uL (1.2-3.4) 03/27/23 06:20 [place] # (Auto) 0.63 K/uL (0.11-0.59) H 03/27/23 06:20 Eos # (Auto) 0.20 K/uL (0-0.50) 03/27/23 06:20 Baso # (Auto) 0.03 K/uL (0-0.2) 03/27/23 06:20 Immature Gran # (Auto) 0.04 K/uL (0.01-0.20) 03/27/23 06:20 PT 11.9 Seconds (9.0-12.0) 03/21/23 11:31 INR 1.1 (0.9-1.1) 03/21/23 11:31 APTT 27.1 Seconds (21.0-31.0) 03/21/23 11:31 PTT Ratio 1.0 03/21/23 11:31 Sodium 136 mmol/L (136-145) 03/27/23 06:20 Potassium 4.1 mmol/L (3.5-5.1) 03/27/23 06:20 Chloride 100 mmol/L (98-107) 03/27/23 06:20 Carbon Dioxide 31 mmol/L (21-32) 03/27/23 06:20 Anion Gap 5 (3-11) 03/27/23 06:20 BUN 18 mg/dl (6-23) 03/27/23 06:20 Creatinine 0.66 mg/dl (0.6-1.2) 03/27/23 06:20 Est Cr Clr Drug Dosing 43.7 ml/min 03/27/23 06:20 Est GFR ( Amer) 90.8 ml/min 03/27/23 06:20 Est GFR (Non-Af Amer) 78.3 ml/min 03/27/23 06:20 BUN/Creatinine Ratio 27.3 (10-20) H 03/27/23 06:20 Glucose 121 mg/dl (70-99(Fasting)) H 03/27/23 06:20 Calcium 9.5 mg/dl (8.6-10.3) 03/27/23 06:20 Phosphorus 3.3 mg/dl (2.5-4.9) 03/25/23 06:57 Magnesium 1.6 mg/dl (1.7-2.4) L 03/27/23 06:20 Total Bilirubin 0.4 mg/dl (0.2-1.0) 03/22/23 07:23 Direct Bilirubin 0.1 mg/dl (0-0.2) 03/21/23 11:31 AST 8 U/L (13-39) L 03/22/23 07:23 ALT 4 U/L (7-52) L 03/22/23 07:23 Alkaline Phosphatase 77 U/L (34-104) 03/22/23 07:23 Troponin I High Sens 31.7 pg/ml (0-14) H 03/21/23 18:24 Total Protein 6.4 gm/dl (6.0-8.3) 03/22/23 07:23 Albumin 3.1 gm/dl (3.4-5.0) L 03/22/23 07:23 Globulin 3.3 gm/dl (2.5-4.0) 03/22/23 07:23 Albumin/Globulin Ratio 0.9 (0.9-2) 03/22/23 07:23 Lipase 9 U/L (11-82) L 03/21/23 11:31 Urine Color Yellow 03/21/23 Unknown Urine Appearance Cloudy (Clear) A 03/21/23 Unknown Urine pH 5.0 (4.5-7.5) 03/21/23 Unknown Ur Specific [place] > 1.045 (1.000-1.030) H 03/21/23 Unknown Urine Protein 1+ (Negative) H 03/21/23 Unknown Urine Glucose (UA) Negative (Negative) 03/21/23 Unknown Urine Ketones Negative (Negative) 03/21/23 Unknown Urine Blood 1+ (Negative) H 03/21/23 Unknown Urine Nitrite Positive (Negative) A 03/21/23 Unknown Urine Bilirubin Negative (Negative) 03/21/23 Unknown Urine Urobilinogen Negative (Negative) 03/21/23 Unknown Ur Leukocyte Esterase 2+ (Negative) H 03/21/23 Unknown Urine WBC (Auto) >30 /hpf (0-5) H 03/21/23 Unknown Urine RBC (Auto) 5-10 /hpf (0-4) H 03/21/23 Unknown U Hyaline Cast (Auto) 1-5 /lpf (0-5) 03/21/23 Unknown U Epithel Cells (Auto) >30 /lpf (0-5) H 03/21/23 Unknown Urine Bacteria (Auto) 4+ (Negative) H 03/21/23 Unknown SARS-CoV-2 (PCR) NEGATIVE (Negative) 03/21/23 11:42 Influenza Type A (PCR) Negative (Neg) 03/21/23 11:42 Influenza Type B (PCR) Negative (Neg) 03/21/23 11:42 RSV (RT-PCR) Negative (Neg) 03/21/23 11:42 Impressions Abdomen/Pelvis CT 03/21/23 11:[address] WITH IV CONTRAST HISTORY: Acute nodule vomiting vomitting TECHNIQUE: Multiaxial CT images of the abdomen and pelvis were performed following the IV administration of 94 cc of Optiray, A dose lowering technique was utilized adhering to the principles of ALARA. COMPARISON STUDY: CT 07/24/2022 FINDINGS: Clear lung bases. Cardiomegaly with mitral annular calcifications. No pneumatosis or pneumoperitoneum. Unchanged appearance of the spleen which measures within the upper limits of normal in size. Mild generalized pancreatic atrophy with scattered parenchymal calcifications suggestive of chronic pancreatitis. Unremarkable adrenal glands. Cholecystectomy with likely postsurgical biliary ductal dilation.. The study is degraded by respiratory motion artifact. 1.0 cm hypodense lesion of the liver on image 125 is unchanged and likely benign. Patency of the hepatic and portal veins. Subcentimeter hypodense foci of the kidneys measuring up to approximately 9 mm on the left are technically too small to characterize however are suggestive of probable cysts. 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 Circumferential urinary bladder wall thickening with mucosal hyperemia, partial distention and perivesicular stranding. Uterus and adnexa are within normal limits. Atherosclerosis of the aorta. There is no lymphadenopathy identified. Small hiatal hernia. Gastric wall thickening with partial distention is similar to prior. Trace free pelvic fluid. No bowel obstruction or bowel wall thicke blessing. No ascites or mesenteric inflammation. No CT evidence of acute appendicitis. Degenerative changes of the spine, pelvis and hips. Demineralized appearance of the bones. No acute fracture identified. IMPRESSION: 1. Findings suggestive of cystitis. Correlation with urinalysis recommended. 2. No bowel obstruction or bowel wall thickening. 3. Gastric wall thickening with partial distention is similar to prior. 4. Chronic findings as above. ACT 112: Negative or not required by law. The above report was generated using voice recognition software. It may contain grammatical, syntax or spelling errors. Electronically signed by: Dane Adan M.D. 03/21/2023 1:25 PM Chest X-Ray 03/21/23 11:03 SINGLE VIEW CHEST CLINICAL HISTORY: Vomiting. FINDINGS: An AP, portable, upright chest radiograph is compared to study dated 06/24/2022 and correlated with chest CT dated 07/24/2022. The heart is enlarged. The mitral annulus is densely calcified. The pulmonary vasculature is noncongested. Chronic interstitial thickening is similar to previous. The lungs and pleural spaces are clear. No pneumothorax is seen. The skeletal structures are osteopenic. The bony thorax is grossly intact. IMPRESSION: Cardiomegaly with no active disease in the chest. ACT 112: Negative or not required by law. Electronically signed by: Willam Ham M.D. 03/21/2023 11:[address] 03/21/23 11:29 CT SCAN OF THE BRAIN WITHOUT IV CONTRAST CLINICAL HISTORY: Dizziness. COMPARISON STUDY: CT of the brain dated 02/06/2023. MRI of the brain dated 03/16/2023. TECHNIQUE: Unenhanced axial CT scan of the brain is performed from the vertex to the skull base. A dose lowering technique was utilized adhering to the prin ciples of PETER. CT DOSE: 1384.02 mGy.cm FINDINGS: Brain parenchyma: There is age-related involutional change noting moderate subcortical and periventricular microangiopathic disease. There is no hemorrhage, mass effect, or evidence of acute territorial ischemia by CT criteria. Chatterjee-white matter differentiation is preserved. A chronic lacunar infarct is noted in the right cerebellar hemisphere. No extra-axial fluid collection is seen. Ventricles, sulci, cisterns: Prominent secondary to involutional change. Intracranial vasculature: There is atherosclerotic calcification of the emily nous carotid and vertebral arteries. Calvarium: Unremarkable. Sinuses and mastoids: The visualized paranasal sinuses are clear. The mastoid air cells are well pneumatized. Orbits: The bony orbits are grossly intact. There are bilateral ocular lens implants. IMPRESSION: There is no hemorrhage, mass effect, or evidence of acute territorial ischemia by CT criteria. ACT 112: Negative or not required by law. Electronically signed by: Willam Ham M.D. 03/21/2023 1:19 PM
[2023-03-28] MEDS: ACETAMINOPHEN 325 MG TAB PO PRN (21:11)
[2023-03-28] MEDS: MELATONIN 3 MG TAB PO PRN (21:11)
[2023-03-28] MEDS: ONDANSETRON 4 MG OD TAB PO PRN (21:11)
[2023-03-28] MEDS: LOSARTAN POTASSIUM 50 MG TAB PO SCH (21:12)
[2023-03-29] MEDS: FAMOTIDINE 40 MG TABLET PO SCH (07:44)
[2023-03-29] MEDS: MAGNESIUM OXIDE 400 MG TAB PO SCH ×2 (07:44→20:06)
[2023-03-29] MEDS: ONDANSETRON 4 MG OD TAB PO PRN (07:44)
[2023-03-29] MEDS: allopurinoL 100 MG TAB PO SCH (07:44)
[2023-03-29] MEDS: APIXABAN 2.5 MG TAB PO SCH ×2 (07:44→20:05)
[2023-03-29] MEDS: CHOLECALCIFEROL 1,000 UNITS 25 MCG TAB PO SCH (07:45)
[2023-03-29] MEDS: amLODIPine BESYLATE 5 MG TAB PO SCH (07:45)
[2023-03-29] MEDS: carvediloL 6.25 MG TAB PO SCH ×2 (07:45→16:50)
--- NOTE | 2023-03-29 16:56 | Hospitalist Progress Note ---
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 MRI negative for stroke. Urinalysis s/o infection CT abdomen pelvis done in admission shows findings suggestive of cystitis Urine Cx results - pansensitive klebsiella. Completed antibiotic course. N/V/D significantly improved PT/OT eval.; recommend rehab. Case management on board and placement is pending Dizziness: Reports dizziness for 1 year Had 2 falls this year when she was trying to turn a corner. She walks with the help of walker MRI brain done as outpatient on March 16, 2023no acute intracranial finding. CT head without contrast this admissionno acute findings PT OT evaluation Monitor on telemetry Delirium: likely hosp induced on background of age and uti, delirium precaution, prn zyprexa. Hypomagnesemia: resolved. Likely demand ischemia: Troponin elevated at presentation likely secondary to acute distress, EKG with no changes, patient with no chest pain. Hypertensionblood pressure reviewed personally. Increase amlodipine and losartan. Continue on Coreg. Chronic atrial fibrillation: Admitting EKG reviewed; A-fib with controlled ventricular rate. Continue on Eliquis and metoprolol Other chronic medical conditions: Resume home meds as able Rheumatoid arthritis, patient used to be on prednisone 5 Mg, not on any treatment presently. HLD pt's atorvastatin per her cardiology office upon OP chart review. Sto pped on 03/12/23. GERDPPI discontinued due to hypomagnesemia, continue with Pepcid on discharge. HFpEFFebruary 2021 echo with EF of 65 to 69%. Stable. Full code DVT prophylaxis: Eliquis Dispo: PT/OT, will need rehab. Case management on board. I spent a total of 35 minutes coordinating, documenting, and providing care for this patient excluding time spent in the performance of separately billed services. Admission and Anticipated Discharge Date Admission Date: March 21, 2023 Supervising Physician Co-Signing Physician Notes Patient seen and examined independently. Discussed with above provider. Patient clinically doing better. No nausea, vomiting or dizziness. Vital stable. Blood pressure well controlled after addition of antihypertensives. Awaiting placement. Subjective Patient seen and examined sitting in bedside chair. Feeling slightly improved today, still with some belching, but tolerated pudding for breakfast. No further vomiting episodes this morning. Awaiting placement. Denies any fever, chills, lightness, headache, chest pain, shortness of breath,abdominal pain, dysuria, diarrhea constipation. Review of Systems Review of Systems: At least ten systems reviewed and negative except as noted in the HPI. Physical Exam Physical Exam: Gen: WD/WN, NAD, sitting in bedside chair, A&Ox3 HEENT: Normocephalic, atraumatic, conjunctivae moist, sclerae anicteric, mucous membranes moist Lung: Clear to Auscultation bilaterally, no wheezes/rales/rhonchi Heart: irregular rate & rhythm, +systolic murmur Abdomen: Soft, NT, ND +BS x 4 Extremities: no edema Psych: Flat affect Skin: Warm, no rash Results & Data Results & Data Vital Signs (Past 12 Hours) Vital Signs Temp Pulse Resp BP BP Pulse Ox O2 Del Method 03/29/23 15:07 36.5 C 67 16 134/73 97 Room Air 03/29/23 07:11 36.3 C L 76 16 128/73 96 Room Air
[2023-03-29] MEDS: LOSARTAN POTASSIUM 50 MG TAB PO SCH (20:06)
[2023-03-30 07:36] LABS: Basophils # (auto) 0.04 K/uL (0-0.2); Basophils % (auto) 0.6 %; Eosinophils # (auto) 0.12 K/uL (0-0.50); Eosinophils % (auto) 1.9 %; Hematocrit (blood only) 32.8 % (37.0-47.0); Hemoglobin 10.7 g/dl (12.0-16.0); Immature Granulocytes # (auto) 0.03 K/uL (0.01-0.20); Immature Granulocytes % (auto) 0.5 %; Lymphocytes # (auto) 1.49 K/uL (1.2-3.4); Lymphocytes % (auto) 23.3 %; Mean Corpuscular Hemoglobin 30.3 pg (25.0-34.0); Mean Corpuscular Hgb Conc 32.6 g/dL (32.0-36.0); Mean Corpuscular Volume 92.9 fL (80.0-100.0); Mean Platelet Volume 8.5 fL (9.4-12.4); Monocytes # (auto) 0.59 K/uL (0.11-0.59); Monocytes % (auto) 9.2 %; Neutrophils # (auto) 4.13 K/uL (1.40-6.50); Neutrophils % (auto) 64.5 %; Platelet Count 231 K/uL (130-400); RDW Coefficient of Variation 14.5 % (11.5-14.5); RDW Standard Deviation 49.1 fL (36.4-46.3); Red Blood Count 3.53 M/uL (4.20-5.40)
[2023-03-30 07:45] VITALS: BP 146/71; PULSE 67; TEMP 97.9; O2SAT 93
[2023-03-30 07:51] LABS: BUN Creatinine Ratio 26.6 (10-20); Calcium 9.3 mg/dl (8.6-10.3); Creatinine Clr Calc Pharmacy 36.5 ml/min; Est GFR (African American) 76.9 ml/min; Est GFR (Non-African American) 66.4 ml/min; Potassium 4.1 mmol/L (3.5-5.1)
[2023-03-30] MEDS: FAMOTIDINE 40 MG TABLET PO SCH (08:25)
[2023-03-30] MEDS: allopurinoL 100 MG TAB PO SCH (08:25)
[2023-03-30] MEDS: CHOLECALCIFEROL 1,000 UNITS 25 MCG TAB PO SCH (08:26)
[2023-03-30] MEDS: carvediloL 6.25 MG TAB PO SCH (08:26)
[2023-03-30] MEDS: MAGNESIUM OXIDE 400 MG TAB PO SCH (08:26)
[2023-03-30] MEDS: APIXABAN 2.5 MG TAB PO SCH (08:26)
[2023-03-30] MEDS: amLODIPine BESYLATE 5 MG TAB PO SCH (08:26)
--- NOTE | 2023-03-30 09:55 | Discharge Summary ---
Discharge Summary Date of Service March 30, 2023 Notes For Next Care Provider Gastroenteritis - resolved. Uncontrolled HTN on new meds as below. Dc to SNF. Medication Changes From Visit Losartan 100mg daily, amlodipine 10mg, Carvedilol 6.25mg twice daily with improvement. Omeprazole discontinued due to low magnesium. Started on Famotidine 40mg QAM. Admission HPI Per Admitting Provider History obtained from patient and records. Past medical history of chronic diastolic heart failure (EF 65 to 69%, TTE 2021), Afib on Eliquis, valvular heart disease (moderate MR, mild AR), pulmonary hypertension, hypertension, hyperlipidemia, rheumatoid arthritis on chronic steroid Rx, chronic anemia (baseline hemoglobin 10-11) Last admission in March 2022 with hypomagnesemia. Patient presents to the hospital with nausea vomiting and diarrhea for 1 week. Nausea and vomiting occurs every time she eats; containing food particles. No coffee-ground emesis. Diarrhea is watery; no mucus or blood. She reports multiple episodes during the day and night. She reports that she has been dizzy with multiple falls for past 2 years. She reports that she becomes unsteady when she is not using a walker; she reports that the falls happen when she is trying to turn a corner. She reports 2 falls in the last year. No loss of consciousness. She denies any fever or chills, abdominal pain, burning micturition or urgency. She does report increased urinary frequency. she is hard of hearing but denies any ear fullness. She lives alone in an apartment. She has help for 3 to 4 hours in the week. Her daughter lives 45 minutes away and helps her with grocery and food. She reports that her daughter has been going through chemotherapy which has resulted in a lot of stress. Her last primary care follow-up was 2 days ago. The urinalysis suggest signs of infection. She recently had MRI brain done as outpatient on March 16 for dizziness which was negative for any acute finding. Medical Historyas above Surgical History : Knee surgery surgery, breast lesion excision, cataract surgeries, ankle fracture surgery Family History : DM, heart disease Personal/Social history : Non-smoker, no EtOH intake, retired store employee, lives alone Admission Exam Per Admitting Provider Constitutional: Alert orient x3. Not in distress. Ears; no wax seen; tympanic membrane intact. Respiratory: Bilateral basal breath sound Cardiovascular: irregular rate & rhythm, systolic murmur murmur, no edema Vessels: no JVD or carotid bruit Chest: normal inspection of chest Abdomen: normal bowel sounds, soft, nontender, no hepatosplenomegaly Musculoskeletal: no cyanosis or clubbing, extremities motor strength 5/5 Skin: no rashes, warm and dry normal turgor Neurologic: Grossly intact Psychiatric: A+Ox3, euthymic affect Lymphatic: no cervical or axillary lymphadenopathy : deferred Principal Dx & Hospital Course #1 = Principal Diagnosis (1) Urinary tract infection: (2) Gastroenteritis: (3) Generalized weakness: (4) Chronic atrial fibrillation: (5) (HFpEF) heart failure with preserved ejection fraction: (6) Hypomagnesemia: Plan This is an 78yo F with PMH of chronic diastolic heart failure (EF 65-69%, TTE 2021), Afib on Eliquis, valvular heart disease (moderate MR, mild AR), pulmonary hypertension, hypertension, hyperlipidemia, rheumatoid arthritis on chronic steroid Rx, chronic anemia (baseline hemoglobin 10-11) who presented with nausea, vomiting, 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 Nausea, vomiting and diarrhea have resolved with supportive care. BP persistent elevated during admission and was started and titrated on new Losartan 100mg daily, amlodipine 10mg, Carvedilol 6.25mg twice daily with improvement. Omeprazole discontinued due to low magnesium. Started on Famotidine 40mg QAM. Ongoing dizziness for the past year. MRI negative for stroke, CT head without acute findings. Intermittent delirium during admission likely hospital induced, infection but is now back to cognitive baseline. Treated for Klebsiella UTI and completed antibiotic course. Hemodynamically stable at time of discharge. Discharge Exam Gen: WD/WN, NAD, sitting in bedside chair, A&Ox3 HEENT: Normocephalic, atraumatic, conjunctivae moist, sclerae anicteric, mucous membranes moist Lung: Clear to Auscultation bilaterally, no wheezes/rales/rhonchi Heart: RRR, +systolic murmur Abdomen: Soft, NT, ND +BS x 4 Extremities: no edema Psych: Flat affect Skin: Warm, no rash Updated Medication List Medication Instructions Recorded Confirmed Type metoprolol tartrate 25 mg tablet 25 mg PO BID 06/05/19 03/21/23 History cholecalciferol (vitamin D3) 25 25 mcg PO QAM 10/06/21 03/21/23 History mcg (1,000 unit) tablet (Vitamin D3) amoxicillin 500 mg capsule 2,000 mg PO UD PRN PRE DENTAL 12/13/21 03/21/23 History acetaminophen 325 mg capsule 650 mg PO Q6H PRN fever or pain 12/16/21 03/21/23 Rx (Tylenol) #60 caps ondansetron HCl 8 mg tablet 4 mg PO Q8 PRN Nausea 01/09/22 03/22/23 History sucralfate 1 gram tablet 1 g PO AC PRN Gi Upset 01/09/22 03/21/23 History apixaban 2.5 mg tablet (Eliquis) 2.5 mg PO BID #60 tabs 01/28/22 03/21/23 Rx allopurinol 100 mg tablet 200 mg PO DAILY 03/21/23 03/21/23 History fluticasone propionate 50 1 spray intranasal DAILY PRN 03/21/23 03/21/23 History mcg/actuation nasal Congestion spray,suspension estradiol 0.01% (0.1 mg/gram) 1 applic vaginal Q2D 03/22/23 03/22/23 History vaginal cream magnesium chloride 64 mg 128 mg PO BID 03/22/23 03/22/23 History (magnesium chloride) tablet,delayed release vitamin E 400 unit tablet 400 unit PO DAILY 03/22/23 03/22/23 History amlodipine 5 mg tablet (Norvasc) 10 mg PO QAM #60 tabs 03/30/23 Rx carvedilol 6.25 mg tablet 6.25 mg PO BIDM #60 tabs 03/30/23 Rx famotidine 40 mg tablet 40 mg PO QAM #30 tabs 03/30/23 Rx losartan 50 mg tablet 100 mg PO HS #60 tabs 03/30/23 Rx Hospital Stay Data Consultations 03/21/23 13:56 ED Decision to Admit Stat Diagnostic Imagining Performed 03/21/23 11:03 CT abd pelvis IV con only Stat 03/21/23 11:29 CT head/brain wo con Stat Pending Results Patient Have Any Pending Studies at Discharge: No Discharge Instructions Given to Patient (Per Discharging Provider) MEDICATION CHANGES: Losartan 100mg daily, amlodipine 10mg, Carvedilol 6.25mg twice daily Omeprazole discontinued due to low magnesium. Started on Famotidine 40mg QAM SUMMARY OF TEST RESULTS: You were admitted to hospital with nausea, vomiting and diarrhea that have resolved. During admission, patient had elevated blood pressure and was started on new medications and titrated as above with improvement. Ongoing dizziness for the past year. MRI negative for stroke, CT head without acute findings. Treated for Klebsiella UTI and completed antibiotic course. You are being discharged to a rehab facility. PENDING TEST RESULTS: None RECOMMENDATIONS FOR FOLLOW-UP: Follow up with PCP as scheduled. Complete antibiotic in its entirety. Continue medication regimen as scheduled aside from changes noted above. OTHER INSTRUCTIONS: Seek medical attention if you have: * temperature above 101 * chest pain or trouble breathing * abdominal pain, nausea, vomiting * diarrhea, dark stools or bloody stools * any unanswered questions or concerns Call 911 if symptoms are severe. Please take good care of yourself. Call if you have any questions or problems. You can reach a [facility] hospitalist on duty at [facility] 24 hours a day by calling [phone]. Total Time Total Time Spent Total Time Spent (In Minutes): 60 Supervising Physician Co-Signing Physician Notes Patient seen and examined independently. Discussed with above provider. Patient clinically doing better. No nausea, vomiting or dizziness. Vital stable. Blood pressure well controlled after addition of antihypertensives. Discharged to rehab. Vital stable at transfer.
== END 2023-03-30 11:40 | DRG 690 ==
LOC: ED 10:40 → EDINP 14:12 → SUATTDRO 14:12 → 2N 17:17 → 2W 03-23 16:52 → 3N 03-24 21:42